=== PATIENT | female | born 1955 | race Caucasian/White ===

== ENCOUNTER 2016-06-23 11:35 | Inpatient (IN) | payer BC ==
[2016-06-23] MEDS ORDERED: NORMAL SALINE 1000 ML 1,000 ML IV ONE (12:30)
--- NOTE | 2016-06-23 12:35 | ER Document Report ---
ED Fever - General Chief Complaint: Fever Stated Complaint: FEVER Time seen by provider: 12:31 Notes: This is a 60-year-old female a history of chronic kidney disease stage II diabetes mellitus type II hypertension that presents today with a three-day history of fever. She states that last night she took an oral temperature of 104 and this morning an oral temperature of 103. She has taken Tylenol, which brought her fever to 101.9. She admits to some nausea and diarrhea but denies any vomiting. She also is complaining of right upper quadrant and left upper quadrant abdominal pain with no radiation. Denies any hematochezia. TRAVEL OUTSIDE OF THE [place] IN LAST 30 DAYS: No - Related Data Allergies/Adverse Reactions: No Known Allergies Allergy (Verified 12/06/14 14:25) Past Medical History - General Information source: Patient - Social History Smoking Status: Unknown if Ever Smoked Family History: Reviewed & Not Pertinent - Past Medical History Cardiac Medical History: Reports: Hx Hypertension Denies: Hx Heart Attack Pulmonary Medical History: Denies: Hx Asthma Neurological Medical History: Denies: Hx Cerebrovascular Accident, Hx Seizures Endocrine Medical History: Reports: Hx Diabetes Mellitus Type 2 GI Medical History: Denies: Hx Hepatitis, Hx Hiatal Hernia, Hx Ulcer Psychiatric Medical History: Reports: Hx Depression Infectious Medical History: Denies: Hx Hepatitis Past Surgical History: Denies: Hx Hysterectomy, Hx Mastectomy, Hx Open Heart Surgery, Hx Pacemaker Review of Systems - Review of Systems Constitutional: Fever Cardiovascular: denies: Chest pain Respiratory: denies: Cough, Short of breath Gastrointestinal: Abdominal pain Genitourinary: See HPI, Dysuria Physical Exam - Vital signs Vitals: Temp Pulse Resp BP Pulse Ox 101.9 F H 109 H 22 H 150/82 H 94 06/23/16 11:39 06/23/16 11:39 06/23/16 11:39 06/23/16 11:39 06/23/16 11:39 - General General appearance: Alert - HEENT Head: Normocephalic - Respiratory Respiratory status: No respiratory distress. No: Retractions, Tachypnea - Cardiovascular Rhythm: Regular Heart sounds: Normal auscultation, S1 appreciated, S2 appreciated - Abdominal Inspection: Normal Bowel sounds: Normal Tenderness: Tender - tender bilaterally to upper abdomen - Back Back: Tender - Right CVA tenderness - Extremities General upper extremity: Normal inspection General lower extremity: Normal inspection - Psychological Associated symptoms: Normal affect - Skin Skin Temperature: Warm Skin Moisture: Dry Skin Color: Normal Course - Re-evaluation Re-evalutation: 06/23/16 15:42 Patient responded well to pain medication. Lab results and CT imaging was shared with the patient. She was given multiple opportunities to ask questions. Dr. Smith was consulted. I started her on IV Levoquin pending blood cultures drawn. I started IV fluids. The hospitalist advised me to put the patient in for full admission on Tele. Patient was told of my plan and agreed. - Vital Signs Vital signs: Temp Pulse Resp BP Pulse Ox 99.1 F 91 22 H 138/59 H 94 06/23/16 17:13 06/23/16 17:13 06/23/16 19:45 06/23/16 19:45 06/23/16 19:45 - Laboratory Result Diagrams: 06/23/16 12:55 06/23/16 12:55 Laboratory results interpreted by me: 06/23/16 06/23/16 06/23/16 12:55 12:55 12:55 WBC 20.4 H Seg Neuts % (Manual) 79 H Band Neutrophils % 6 H Lymphocytes % (Manual) 9 L Abs Neuts (Manual) 17.3 H Creatinine 1.36 H Est GFR ( Amer) 48 L Est GFR (Non-Af Amer) 39 L Glucose 132 H Urine Protein 100 H Urine Blood SMALL H Ur Leukocyte Esterase LARGE H Discharge - Discharge Clinical Impression: Abdominal pain Qualifiers: Abdominal location: epigastric Qualified Code(s): R10.13 - Epigastric pain Fever Qualifiers: Fever type: unspecified Qualified Code(s): R50.9 - Fever, unspecified Condition: Stable Disposition: ADMITTED INPATIENT Admitting Provider: Hospitalist Unit Admitted: Telemetry
[2016-06-23] MEDS ORDERED: HYDROCODONE/ACETAMINOPHEN 5-325 MG TABLET PO ONE ×2 (12:36→15:50)
[2016-06-23] MEDS ORDERED: ONDANSETRON HCL INJ/PF 4 MG/2 ML SDV IV ONE ×2 (12:36→14:59)
[2016-06-23 13:38] LABS: APPEARANCE,URINE TURBID; BILIRUBIN,URINE NEGATIVE (NEGATIVE); GLUCOSE, URINE NEGATIVE (NEGATIVE); KETONES,URINE NEGATIVE (NEGATIVE); LEUKOCYTE ESTERASE,URINE LARGE (NEGATIVE); NITRITE,URINE NEGATIVE (NEGATIVE); PROTEIN,URINE 100 mg/dL (NEGATIVE); URINE SPECIFIC GRAVITY 1.015; UROBILINOGEN,URINE NEGATIVE mg/dL (<2.0)
[2016-06-23 13:45] LABS: ALANINE AMINOTRANSFERASE 25 U/L (9-52); ALBUMIN 4.3 g/dL (3.5-5.0); ALKALINE PHOSPHATASE 63 U/L (38-126); ANION GAP 14 (5-19); ASPARTATE AMINO TRANSFERASE 20 U/L (14-36); BILIRUBIN,TOTAL 0.7 mg/dL (0.2-1.3); BLOOD UREA NITROGEN 20 mg/dL (7-20); CALCIUM 9.9 mg/dL (8.4-10.2); CARBON DIOXIDE 26 mmol/L (22-30); CHLORIDE 102 mmol/L (98-107); CREATININE RESULT 1.36 mg/dL (0.52-1.25); GLUCOSE 132 mg/dL (75-110); LIPASE 66.1 U/L (23-300); POTASSIUM 3.7 mmol/L (3.6-5.0); SODIUM 141.7 mmol/L (137-145)
[2016-06-23 13:46] LABS: HEMATOCRIT 42.6 % (36.0-47.0); HEMOGLOBIN 14.1 g/dL (12.0-15.5); HGB HCT DIFFERENCE -0.3; MEAN CORPUSCULAR HEMOGLOBIN 28.3 pg (27.0-33.4); MEAN CORPUSCULAR VOLUME 86 fl (80-97); RED BLOOD COUNT 4.97 10^6/uL (3.72-5.28); RED CELL DISTRIBUTION WIDTH 13.7 % (11.5-14.0); WHITE BLOOD COUNT 20.4 10^3/uL (4.0-10.5)
[2016-06-23 13:53] LABS: BAND NEUTROPHILS % (MANUAL) 6 % (3-5); BASOPHILS % (MANUAL) 0 % (0-2); EOSINOPHILS % (MANUAL) 1 % (0-6); LYMPHOCYTES % (MANUAL) 9 % (13-45); TOTAL CELLS COUNTED 100
[2016-06-23 13:54] LABS: RBC MORPHOLOGY COMMENT NORMO-CYTIC/CHROMIC
[2016-06-23] MEDS ORDERED: LEVOFLOXACIN 750 MG/D5W RTU 150 ML IV ONE (18:32)
[2016-06-23] MEDS ORDERED: ONDANSETRON HCL INJ/PF 4 MG/2 ML SDV IV PRN (18:46)
[2016-06-23] MEDS ORDERED: ZOLPIDEM TARTRATE 5 MG TABLET PO PRN (18:46)
[2016-06-23] MEDS ORDERED: ACETAMINOPHEN 325 MG TABLET PO PRN (18:46)
[2016-06-23] MEDS ORDERED: MORPHINE SULFATE 10 MG/ML INJ IV PRN (18:54)
--- NOTE | 2016-06-23 19:13 | PDOC H&P ---
History of Present Illness Admission Date/PCP: 06/23/16 18:37 Patient complains of: Fever, right flank pain and diarrhea History of Present Illness: BONNY ASKEW is a 60 year old female who presents to [facility] 's ED with complaints of fever for 3 days, diarrhea for 2 days, right flank and upper bilateral quadrant abdominal pain. She states she was nauseated today but did not vomit. She denies any blood in her diarrhea. She has no urinary symptoms however urinalysis shows likely urinary tract infection with right flank pain. CT of the abdomen and pelvis showed some mild mesenteric haziness but no bowel wall inflammation or hydroneprhosis. The patient has been taking imodium over the counter with some improvement of her diarrhea. She is presently pain free. She is no longer nauseated after Zofran. She denies any other symptoms at the present time. She has taken Tylenol for her fevers which did help. She does have a history of hypertension, diabetes mellitus type II and dyslipidemia. Past Medical History Cardiac Medical History: Reports: Hyperlipidema, Hypertension Denies: Myocardial Infarction Pulmonary Medical History: Reports: None Denies: Asthma EENT Medical History: Reports: None Neurological Medical History: Reports: None Denies: Seizures Endocrine Medical History: Reports: Diabetes Mellitus Type 2 Renal/ Medical History: Reports: Chronic Kidney Disease Malignancy Medical History: Reports: None GI Medical History: Reports: Gastroesophageal Reflux Disease Denies: Hepatitis, Hiatal Hernia Musculoskeltal Medical History: Reports: None Skin Medical History: Reports: None Psychiatric Medical History: Reports: Depression Traumatic Medical History: Reports: None Hematology: Reports: None Denies: Anemia, Sickle Cell Disease Infectious Medical History: Reports: None Past Surgical History Past Surgical History: Denies: Amputation, Hysterectomy, Mastectomy, Pacemaker Social History Information Source: Patient Lives with: Alone Smoking Status: Never Smoker Frequency of Alcohol Use: None Hx Recreational Drug Use: No Hx Prescription Drug Abuse: No - Advance Directive Resuscitation Status: Full Code Surrogate healthcare decision maker:: She does not have MPOA, but states it would be her son Family History Family History: CAD, Hypertension Parental Family History Reviewed: Yes Children Family History Reviewed: Yes Sibling(s) Family History Reviewed.: Yes Medication/Allergy Home Medications: Citalopram Hydrobromide [Celexa 20 mg Tablet] 40 mg PO DAILY 02/04/12 Cholestyramine (with Sugar) [Cholestyramine Packet] 4 gm PO BID 02/09/16 Dulaglutide [Trulicity] 0.75 mg SQ Q7D 02/09/16 Lisinopril 20 mg PO DAILY 02/09/16 Pitavastatin Calcium [Livalo] 2 mg PO DAILY 02/09/16 Rosuvastatin Calcium 5 mg PO DAILY 02/09/16 Loperamide HCl [Imodium 2 mg Capsule] 4 mg PO DAILYP PRN #20 capsule 02/10/16 Loperamide HCl [Imodium 2 mg Capsule] 4 mg PO DAILYP PRN #20 capsule 02/10/16 Metoclopramide HCl [Reglan] 5 mg PO ACHS #40 tablet 02/10/16 Pantoprazole Sodium [Protonix] 40 mg PO QHS #30 tablet. 02/10/16 Allergies/Adverse Reactions: No Known Allergies Allergy (Verified 12/06/14 14:25) Review of Systems Constitutional: PRESENT: chills, fever(s) Eyes: ABSENT: visual disturbances Ears: ABSENT: hearing changes Cardiovascular: ABSENT: chest pain, dyspnea on exertion, edema, orthropnea, palpitations Respiratory: ABSENT: cough, hemoptysis Gastrointestinal: PRESENT: abdominal pain, bloating, diarrhea, nausea Genitourinary: ABSENT: dysuria, hematuria Musculoskeletal: PRESENT: back pain Integumentary: ABSENT: rash, wounds Neurological: ABSENT: abnormal gait, abnormal speech, confusion, dizziness, focal weakness, syncope Psychiatric: ABSENT: anxiety, depression, homidical ideation, suicidal ideation Endocrine: ABSENT: cold intolerance, heat intolerance, polydipsia, polyuria Hematologic/Lymphatic: ABSENT: easy bleeding, easy bruising Physical Exam Vital Signs: Temp Pulse Resp BP Pulse Ox 99.1 F 91 16 133/56 H 95 06/23/16 17:13 06/23/16 17:13 06/23/16 17:13 06/23/16 17:13 06/23/16 17:13 General appearance: PRESENT: no acute distress, obese, well-developed, well- nourished Head exam: PRESENT: atraumatic, normocephalic Eye exam: PRESENT: conjunctiva pink, EOMI, PERRLA. ABSENT: scleral icterus Ear exam: PRESENT: normal external ear exam Mouth exam: PRESENT: dry mucosa Neck exam: ABSENT: carotid bruit, JVD, lymphadenopathy, thyromegaly Respiratory exam: PRESENT: clear to auscultation joni. ABSENT: rales, rhonchi, wheezes Cardiovascular exam: PRESENT: RRR. ABSENT: diastolic murmur, rubs, systolic murmur Pulses: PRESENT: normal dorsalis pedis pul Vascular exam: PRESENT: normal capillary refill GI/Abdominal exam: PRESENT: normal bowel sounds, soft, tenderness - bilateral upper quadrants, other - right CVA tenderness Rectal exam: PRESENT: deferred Extremities exam: PRESENT: full ROM. ABSENT: calf tenderness, clubbing, pedal edema Musculoskeletal exam: PRESENT: ambulatory, full ROM, normal inspection Neurological exam: PRESENT: alert, awake, oriented to person, oriented to place , oriented to time, oriented to situation, CN II-XII grossly intact. ABSENT: motor sensory deficit Psychiatric exam: PRESENT: appropriate affect, normal mood. ABSENT: homicidal ideation, suicidal ideation Skin exam: PRESENT: dry, intact, warm. ABSENT: cyanosis, rash Results Impressions: Abdomen/Pelvis CT 06/23/16 14:55 IMPRESSION: 1. There appears to be some of the mild haziness within the mesenteries in the bilateral lower quadrants inferior to the kidney which could represent an area of inflammation within the fat/ mesentery. No focal lesions are seen in either region. This could also represent inflammation related to the bowel though there is no bowel wall thickening seen. No intra-abdominal free air is noted. Small amount of free fluid seen within the pelvis. No abscesses. 2. Small hiatus hernia. Assessment & Plan - Diagnosis (1) Acute pyelonephritis Is this a current diagnosis for this admission?: YesPlan: Blood cultures, urine culture pending. IV broad spectrum antibiotics (2) Abdominal pain Qualifiers: Abdominal location: epigastric Qualified Code(s): R10.13 - Epigastric pain Is this a current diagnosis for this admission?: YesPlan: Possible mesenteritis,versus viral syndrome (3) Fever Qualifiers: Fever type: unspecified Qualified Code(s): R50.9 - Fever, unspecified Is this a current diagnosis for this admission?: YesPlan: Cultures pending, Tylenol as needed (4) Acute renal failure (ARF) Qualifiers: Acute renal failure type: unspecified Qualified Code(s): N17.9 - Acute kidney failure, unspecified Is this a current diagnosis for this admission?: Yes (5) Dehydration Is this a current diagnosis for this admission?: YesPlan: Will rehydrate. (6) Depression Is this a current diagnosis for this admission?: YesPlan: Continue SSRI - Time Time Spent: 50 to 70 Minutes Critical Time spent with patient: 25-34 minutes Medications reviewed and adjusted accordingly: Yes Anticipated discharge: Home - Inpatient Certification Based on my medical assessment, after consideration of the patient's comorbidities, presenting symptoms, or acuity I expect that the services needed warrant INPATIENT care.: Yes I certify that my determination is in accordance with my understanding of Medicare's requirements for reasonable and necessary INPATIENT services [42 CFR 412.3e].: Yes Medical Necessity: Need For IV Fluids, Need for Pain Control, Need for IV Antibiotics
[2016-06-23] MEDS: NORMAL SALINE 1000 ML 1,000 ML IV PRN (21:42)
[2016-06-23] MEDS: METRONIDAZOLE 500 MG TABLET PO SCH (22:17)
[2016-06-23] MEDS: HEPARIN SOD (PORCINE) 5,000 UNIT/ML 1 ML SYRINGE SUBCUT SCH (22:18)
[2016-06-24] MEDS: NORMAL SALINE 1000 ML 1,000 ML IV PRN (04:17)
[2016-06-24] MEDS: HEPARIN SOD (PORCINE) 5,000 UNIT/ML 1 ML SYRINGE SUBCUT SCH ×3 (05:28→21:18)
[2016-06-24] MEDS: LANSOPRAZOLE 15 MG TAB.RAP.DR PO SCH ×2 (05:28→16:49)
[2016-06-24] MEDS: METRONIDAZOLE 500 MG TABLET PO SCH ×3 (05:28→21:18)
[2016-06-24 07:05] LABS: ABSOLUTE EOSINOPHILS # (AUTO) 0.4 10^3/uL (0.0-0.6); ABSOLUTE LYMPHOCYTES (AUTO) 1.7 10^3/uL (0.5-4.7); ABSOLUTE NEUT (AUTO) 8.3 10^3/uL (1.7-8.2); BASOPHILS % (AUTO) 0.2 % (0-2); EOSINOPHILS % (AUTO) 3.2 % (0-6); HEMATOCRIT 33.4 % (36.0-47.0); HGB HCT DIFFERENCE 0.5; LYMPHOCYTES % (AUTO) 14.6 % (13-45); MEAN CORPUSCULAR HEMOGLOBIN 28.7 pg (27.0-33.4); MEAN CORPUSCULAR HGB CONC 33.7 g/dL (32.0-36.0); MEAN CORPUSCULAR VOLUME 85 fl (80-97); MONOCYTES % (AUTO) 9.1 % (3-13); RED BLOOD COUNT 3.93 10^6/uL (3.72-5.28); RED CELL DISTRIBUTION WIDTH 13.6 % (11.5-14.0); SEGMENTED NEUTROPHILS % (AUTO) 72.9 % (42-78); WHITE BLOOD COUNT 11.3 10^3/uL (4.0-10.5)
[2016-06-24 07:18] LABS: AMYLASE 44 U/L (30-110); ANION GAP 12 (5-19); BLOOD UREA NITROGEN 25 mg/dL (7-20); CALCIUM 8.7 mg/dL (8.4-10.2); CARBON DIOXIDE 23 mmol/L (22-30); CHLORIDE 106 mmol/L (98-107); GLUCOSE 112 mg/dL (75-110); LIPASE 104.5 U/L (23-300); POTASSIUM 3.6 mmol/L (3.6-5.0); SODIUM 141.1 mmol/L (137-145)
[2016-06-24 07:21] LABS: HEMOGLOBIN 11.3 g/dL (12.0-15.5)
[2016-06-24] MEDS ORDERED: PROMETHAZINE HCL INJ 25 MG/1 ML VIAL IV PRN (08:15)
--- NOTE | 2016-06-24 08:32 | PDOC PROGRESS REPORT ---
Subjective Progress Note for:: 06/24/16 Subjective:: Patient is seen on morning rounds. She is presently resting in bed eating breakfast. She denies any diarrhea overnight. She had one episode of right flank pain that was relieved by morphine. She was nauseated earlier this morning , but is not now. No further fevers overnight. She denies any cough, chest pain , shortness of breath or dyspnea. She denies any back pain at the present time. Review of Systems: Rest are negative except mentioned in subjective Physical Exam Vital Signs: Temp Pulse Resp BP Pulse Ox 98.6 F 75 15 129/60 H 98 06/24/16 07:34 06/24/16 07:34 06/24/16 07:34 06/24/16 07:34 06/24/16 07:34 Intake & Output 06/23/16 06/24/16 06/25/16 06:59 06:59 06:59 Intake Total 1195 Balance 1195 Weight 114.4 kg General appearance: PRESENT: no acute distress, well-developed, well-nourished Head exam: PRESENT: atraumatic Eye exam: PRESENT: conjunctiva pink, EOMI, PERRLA. ABSENT: scleral icterus Ear exam: PRESENT: normal external ear exam Mouth exam: PRESENT: moist, tongue midline Neck exam: ABSENT: carotid bruit, JVD, lymphadenopathy, thyromegaly Cardiovascular exam: PRESENT: RRR. ABSENT: diastolic murmur, rubs, systolic murmur Pulses: PRESENT: normal dorsalis pedis pul Vascular exam: PRESENT: normal capillary refill GI/Abdominal exam: PRESENT: normal bowel sounds, soft. ABSENT: distended, guarding, mass, organolmegaly, rebound, tenderness Rectal exam: PRESENT: deferred Extremities exam: PRESENT: full ROM. ABSENT: calf tenderness, clubbing, pedal edema Neurological exam: PRESENT: alert, awake, oriented to person, oriented to place , oriented to time, oriented to situation, CN II-XII grossly intact. ABSENT: motor sensory deficit Psychiatric exam: PRESENT: appropriate affect, normal mood. ABSENT: homicidal ideation, suicidal ideation Results Laboratory Results: 06/24/16 06:15 06/24/16 06:15 06/24/16 06/24/16 06:15 06:15 WBC 11.3 H RBC 3.93 Hgb 11.3 L D Hct 33.4 L MCV 85 MCH 28.7 MCHC 33.7 RDW 13.6 Plt Count 175 Seg Neutrophils % 72.9 Lymphocytes % 14.6 Monocytes % 9.1 Eosinophils % 3.2 Basophils % 0.2 Absolute Neutrophils 8.3 H Absolute Lymphocytes 1.7 Absolute Monocytes 1.0 Absolute Eosinophils 0.4 Absolute Basophils 0.0 Sodium 141.1 Potassium 3.6 Chloride 106 Carbon Dioxide 23 Anion Gap 12 BUN 25 H Creatinine 1.70 H Est GFR ( Amer) 37 L Est GFR (Non-Af Amer) 30 L Glucose 112 H Calcium 8.7 Amylase 44 Lipase 104.5 Impressions: Abdomen/Pelvis CT 06/23/16 14:55 IMPRESSION: 1. There appears to be some of the mild haziness within the mesenteries in the bilateral lower quadrants inferior to the kidney which could represent an area of inflammation within the fat/ mesentery. No focal lesions are seen in either region. This could also represent inflammation related to the bowel though there is no bowel wall thickening seen. No intra-abdominal free air is noted. Small amount of free fluid seen within the pelvis. No abscesses. 2. Small hiatus hernia. Assessment & Plan - Diagnosis (1) Acute pyelonephritis Is this a current diagnosis for this admission?: YesPlan: Blood cultures, urine culture pending. IV broad spectrum antibiotics (2) Abdominal pain Qualifiers: Abdominal location: epigastric Qualified Code(s): R10.13 - Epigastric pain Is this a current diagnosis for this admission?: YesPlan: Possible mesenteritis,versus viral syndrome (3) Fever Qualifiers: Fever type: unspecified Qualified Code(s): R50.9 - Fever, unspecified Is this a current diagnosis for this admission?: YesPlan: Cultures pending, Tylenol as needed (4) Acute renal failure (ARF) Qualifiers: Acute renal failure type: unspecified Qualified Code(s): N17.9 - Acute kidney failure, unspecified Is this a current diagnosis for this admission?: YesPlan: Continue to rehydrate with IV fluid, prerenal due to dehydration from uti and diarrhea (5) Dehydration Is this a current diagnosis for this admission?: YesPlan: Will rehydrate. (6) Depression Is this a current diagnosis for this admission?: YesPlan: Continue SSRI - Time Time Spent with patient: 25-34 minutes Critical Time spent with patient: 15-24 minutes Medications reviewed and adjusted accordingly: Yes Anticipated discharge: Home
[2016-06-24] MEDS: LISINOPRIL 10 MG TABLET PO SCH (09:12)
[2016-06-24] MEDS: LACTOBACILLUS ACIDOPHILUS 250 MG TAB PO SCH ×2 (09:12→17:09)
[2016-06-24] MEDS: CITALOPRAM HYDROBROMIDE 20 MG TABLET PO SCH (09:13)
[2016-06-24] MEDS ORDERED: LEVOFLOXACIN 750 MG/D5W RTU 750 MG/150 ML RTUPB IV SCH (18:00)
[2016-06-25] MEDS: HEPARIN SOD (PORCINE) 5,000 UNIT/ML 1 ML SYRINGE SUBCUT SCH ×2 (01:26→13:13)
[2016-06-25 04:55] LABS: ABSOLUTE BASOPHILS # (AUTO) 0.1 10^3/uL (0.0-0.2); ABSOLUTE EOSINOPHILS # (AUTO) 0.4 10^3/uL (0.0-0.6); ABSOLUTE MONOCYTES (AUTO) 0.8 10^3/uL (0.1-1.4); BASOPHILS % (AUTO) 0.6 % (0-2); EOSINOPHILS % (AUTO) 4.5 % (0-6); HEMATOCRIT 34.1 % (36.0-47.0); HEMOGLOBIN 11.6 g/dL (12.0-15.5); HGB HCT DIFFERENCE 0.7; LYMPHOCYTES % (AUTO) 21.3 % (13-45); MEAN CORPUSCULAR HEMOGLOBIN 28.8 pg (27.0-33.4); MEAN CORPUSCULAR HGB CONC 33.9 g/dL (32.0-36.0); MEAN CORPUSCULAR VOLUME 85 fl (80-97); MONOCYTES % (AUTO) 8.3 % (3-13); RED BLOOD COUNT 4.01 10^6/uL (3.72-5.28); RED CELL DISTRIBUTION WIDTH 13.6 % (11.5-14.0); SEGMENTED NEUTROPHILS % (AUTO) 65.3 % (42-78); WHITE BLOOD COUNT 9.2 10^3/uL (4.0-10.5)
[2016-06-25 05:15] LABS: ANION GAP 11 (5-19); BLOOD UREA NITROGEN 31 mg/dL (7-20); CALCIUM 8.7 mg/dL (8.4-10.2); CARBON DIOXIDE 24 mmol/L (22-30); CHLORIDE 107 mmol/L (98-107); CREATININE RESULT 1.82 mg/dL (0.52-1.25); GLUCOSE 102 mg/dL (75-110); POTASSIUM 3.7 mmol/L (3.6-5.0); SODIUM 142.4 mmol/L (137-145)
[2016-06-25] MEDS: LANSOPRAZOLE 15 MG TAB.RAP.DR PO SCH (06:22)
[2016-06-25] MEDS: METRONIDAZOLE 500 MG TABLET PO SCH ×2 (06:22→13:14)
[2016-06-25] MEDS: LISINOPRIL 10 MG TABLET PO SCH (09:29)
[2016-06-25] MEDS: CITALOPRAM HYDROBROMIDE 20 MG TABLET PO SCH (09:31)
[2016-06-25] MEDS: LACTOBACILLUS ACIDOPHILUS 250 MG TAB PO SCH (09:32)
--- NOTE | 2016-06-25 13:44 | PDOC DISCHARGE SUMMARY ---
General - Admit/Disc Date/PCP Admission Date/Primary Care Provider: 06/23/16 18:47 Discharge Date: 06/25/16 - Discharge Diagnosis (1) Acute pyelonephritis Is this a current diagnosis for this admission?: YesSummary: Patient is on oral antibiotics. Fever and pain has resolved (2) Abdominal pain Is this a current diagnosis for this admission?: YesSummary: Pain has resolved. (3) Fever Is this a current diagnosis for this admission?: YesSummary: Resolved after initiating antibiotic therapy (4) Acute renal failure (ARF) Is this a current diagnosis for this admission?: YesSummary: Patient has CKD II back to baseline (5) Dehydration Is this a current diagnosis for this admission?: YesSummary: Resolved with IV hydration (6) Depression Is this a current diagnosis for this admission?: YesSummary: Continue SSRI - Additional Information Resuscitation Status: Full Code Discharge Diet: Diabetic Discharge Activity: Activity As Tolerated, Balance Activity w/Rest Home Medications: Citalopram Hydrobromide [Celexa 20 mg Tablet] 40 mg PO DAILY 02/04/12 Cholestyramine (with Sugar) [Cholestyramine Packet] 4 gm PO BID 02/09/16 Dulaglutide [Trulicity] 0.75 mg SQ Q7D 02/09/16 Lisinopril 20 mg PO DAILY 02/09/16 Rosuvastatin Calcium 10 mg PO DAILY 02/09/16 Metoclopramide HCl [Reglan] 5 mg PO ACHS #40 tablet 02/10/16 Acetaminophen [Tylenol 325 mg Tablet] 650 mg PO Q4HP PRN tablet 06/25/16 Citalopram Hydrobromide [Celexa 20 mg Tablet] 40 mg PO DAILY tablet 06/25/16 Levofloxacin [Levaquin] 750 mg PO DAILY #7 tablet 06/25/16 Metronidazole [Flagyl 500 mg Tablet] 500 mg PO Q8 #21 tablet 06/25/16 History of Present Illness History of Present Illness: BONNY ASKEW is a 60 year old female who presents to [facility] 's ED with complaints of fever for 3 days, diarrhea for 2 days, right flank and upper bilateral quadrant abdominal pain. She states she was nauseated today but did not vomit. She denies any blood in her diarrhea. She has no urinary symptoms however urinalysis shows likely urinary tract infection with right flank pain. CT of the abdomen and pelvis showed some mild mesenteric haziness but no bowel wall inflammation or hydroneprhosis. The patient has been taking imodium over the counter with some improvement of her diarrhea. She is presently pain free. She is no longer nauseated after Zofran. She denies any other symptoms at the present time. She has taken Tylenol for her fevers which did help. She does have a history of hypertension, diabetes mellitus type II and dyslipidemia. Hospital Course Hospital Course: Patient was admitted to telemetry unit. She was rehydrated with IV fluids and given IV antibiotics. Her fever resolved. The following day abdominal pain and flank pain resolved. Her leucocytosis was trending downward. She was started on clear liquids and progressed to a regular diabetic diet. She had no further diarrhea. Today leucocytosis has resolved. She has no abdominal or flank pain. She feels ready for discharge today. Physical Exam Vital Signs: Temp Pulse Resp BP Pulse Ox 98.7 F 73 15 132/64 H 98 06/25/16 11:13 06/25/16 11:13 06/25/16 11:13 06/25/16 11:13 06/25/16 11:13 Intake & Output 06/24/16 06/25/16 06/26/16 06:59 06:59 06:59 Intake Total 1195 3196 Output Total 1150 Balance 1195 2046 Weight 114.4 kg 114.6 kg General appearance: PRESENT: no acute distress, morbidly obese, well-developed, well-nourished Head exam: PRESENT: atraumatic, normocephalic Eye exam: PRESENT: conjunctiva pink, EOMI, PERRLA. ABSENT: scleral icterus Ear exam: PRESENT: normal external ear exam Mouth exam: PRESENT: moist, tongue midline Neck exam: ABSENT: carotid bruit, JVD, lymphadenopathy, thyromegaly Respiratory exam: PRESENT: clear to auscultation joni. ABSENT: rales, rhonchi, wheezes Cardiovascular exam: PRESENT: RRR. ABSENT: diastolic murmur, rubs, systolic murmur Pulses: PRESENT: normal dorsalis pedis pul Vascular exam: PRESENT: normal capillary refill GI/Abdominal exam: PRESENT: normal bowel sounds, soft. ABSENT: distended, guarding, mass, organolmegaly, rebound, tenderness Rectal exam: PRESENT: deferred Extremities exam: PRESENT: full ROM. ABSENT: calf tenderness, clubbing, pedal edema Neurological exam: PRESENT: alert, awake, oriented to person, oriented to place , oriented to time, oriented to situation, CN II-XII grossly intact. ABSENT: motor sensory deficit Psychiatric exam: PRESENT: appropriate affect, normal mood. ABSENT: homicidal ideation, suicidal ideation Skin exam: PRESENT: dry, intact, warm. ABSENT: cyanosis, rash Results Laboratory Results: 06/25/16 04:18 06/25/16 04:18 06/25/16 06/25/16 04:18 04:18 WBC 9.2 RBC 4.01 Hgb 11.6 L Hct 34.1 L MCV 85 MCH 28.8 MCHC 33.9 RDW 13.6 Plt Count 193 Seg Neutrophils % 65.3 Lymphocytes % 21.3 Monocytes % 8.3 Eosinophils % 4.5 Basophils % 0.6 Absolute Neutrophils 6.0 Absolute Lymphocytes 2.0 Absolute Monocytes 0.8 Absolute Eosinophils 0.4 Absolute Basophils 0.1 Sodium 142.4 Potassium 3.7 Chloride 107 Carbon Dioxide 24 Anion Gap 11 BUN 31 H Creatinine 1.82 H Est GFR ( Amer) 34 L Est GFR (Non-Af Amer) 28 L Glucose 102 Calcium 8.7 Impressions: Abdomen/Pelvis CT 06/23/16 14:55 IMPRESSION: 1. There appears to be some of the mild haziness within the mesenteries in the bilateral lower quadrants inferior to the kidney which could represent an area of inflammation within the fat/ mesentery. No focal lesions are seen in either region. This could also represent inflammation related to the bowel though there is no bowel wall thickening seen. No intra-abdominal free air is noted. Small amount of free fluid seen within the pelvis. No abscesses. 2. Small hiatus hernia. Qualifiers PATEINT BEING DISCHARGED WITH ANY OF THE FOLLOWING DIAGNOSIS?: No Plan Discharge Plan: Discharge home with family continue on oral antibiotics. Follow up with primary are provider in one week Time Spent: Less than 30 Minutes
[2016-06-25 17:31] VITALS: BP 111/47
== END 2016-06-25 18:00 | disposition home or self-care (01) | DRG 690 ==
LOC: ER 11:35 → UNDOADMIN 18:37 → EH 18:37 → 5 21:04
PROVIDERS: ADMIT Family Medicine; ATTEND Family Medicine
DX: N10 Acute pyelonephritis (principal); Z68.41 Body mass index [BMI] 40.0-44.9, adult; N17.9 Acute kidney failure, unspecified; E86.0 Dehydration; I12.9 Hypertensive chronic kidney disease with stage 1 through stage 4 chronic kidney disease, or unspecified chronic kidney disease; E11.22 Type 2 diabetes mellitus with diabetic chronic kidney disease; N18.9 Chronic kidney disease, unspecified; F32.9 Major depressive disorder, single episode, unspecified; E66.9 Obesity, unspecified; E78.5 Hyperlipidemia, unspecified; Z79.899 Other long term (current) drug therapy; K21.9 Gastro-esophageal reflux disease without esophagitis; Z82.49 Family history of ischemic heart disease and other diseases of the circulatory system
CPT/HCPCS: 36415; 74176; 80048; 80053; 81001; 82150; 82962; 83036; 83690; 85025; 87040; 87045; 87086; 87205; 87493; 96361; 96374; 96376; 99284; J1956; J2270; J2405; J2550; J7030

== ENCOUNTER 2016-11-17 10:35 | Emergency (ER) | payer BC ==
--- NOTE | 2016-11-17 11:05 | ER Document Report ---
ED Medical Screen (RME) - General Chief Complaint: Diarrhea Stated Complaint: DIARRHEA/FATIGUE/WEAKNESS Time Seen by Provider: 11/17/16 11:00 Mode of Arrival: Ambulatory Information source: Patient Notes: This 60-year-old female patient comes emergency room complaining of the 2 week history of watery diarrhea and one-week history of weakness and fatigue which is getting worse. She has had nausea without vomiting. There is no fever. There is no recent antibiotic use. She was admitted here a few months ago with pyelonephritis. I have greeted and performed a rapid initial assessment of this patient. A comprehensive ED assessment and evaluation of the patient, analysis of test results and completion of the medical decision making process will be conducted by additional ED providers. TRAVEL OUTSIDE OF THE [place] IN LAST 30 DAYS: No - Related Data Allergies/Adverse Reactions: No Known Allergies Allergy (Verified 11/17/16 10:45) Past Medical History - Past Medical History Cardiac Medical History: Reports: Hx Hypercholesterolemia, Hx Hypertension Denies: Hx Heart Attack Pulmonary Medical History: Denies: Hx Asthma Neurological Medical History: Denies: Hx Cerebrovascular Accident, Hx Seizures Endocrine Medical History: Reports: Hx Diabetes Mellitus Type 2 Renal/ Medical History: Denies: Hx Peritoneal Dialysis GI Medical History: Reports: Hx Gastroesophageal Reflux Disease. Denies: Hx Hepatitis, Hx Hiatal Hernia, Hx Ulcer Psychiatric Medical History: Reports: Hx Depression Infectious Medical History: Denies: Hx Hepatitis Past Surgical History: Denies: Hx Hysterectomy, Hx Mastectomy, Hx Open Heart Surgery, Hx Pacemaker - Immunizations Hx Diphtheria, Pertussis, Tetanus Vaccination: Yes Physical Exam - Vital signs Vitals: Temp Pulse Resp BP Pulse Ox 98.2 F 81 16 117/62 98 11/17/16 10:37 11/17/16 10:37 11/17/16 10:37 11/17/16 10:37 11/17/16 10:37 Course - Vital Signs Vital signs: Temp Pulse Resp BP Pulse Ox 98.2 F 81 16 117/62 98 11/17/16 10:37 11/17/16 10:37 11/17/16 10:37 11/17/16 10:37 11/17/16 10:37
[2016-11-17 11:28] LABS: ABSOLUTE BASOPHILS # (AUTO) 0.1 10^3/uL (0.0-0.2); ABSOLUTE EOSINOPHILS # (AUTO) 0.3 10^3/uL (0.0-0.6); ABSOLUTE LYMPHOCYTES (AUTO) 1.9 10^3/uL (0.5-4.7); ABSOLUTE MONOCYTES (AUTO) 0.7 10^3/uL (0.1-1.4); ABSOLUTE NEUT (AUTO) 2.4 10^3/uL (1.7-8.2); BASOPHILS % (AUTO) 1.4 % (0-2); EOSINOPHILS % (AUTO) 5.2 % (0-6); HEMATOCRIT 40.6 % (36.0-47.0); HEMOGLOBIN 13.5 g/dL (12.0-15.5); HGB HCT DIFFERENCE -0.1; LYMPHOCYTES % (AUTO) 35.1 % (13-45); MEAN CORPUSCULAR HEMOGLOBIN 28.9 pg (27.0-33.4); MEAN CORPUSCULAR HGB CONC 33.2 g/dL (32.0-36.0); MEAN CORPUSCULAR VOLUME 87 fl (80-97); RED BLOOD COUNT 4.66 10^6/uL (3.72-5.28); SEGMENTED NEUTROPHILS % (AUTO) 45.3 % (42-78); WHITE BLOOD COUNT 5.3 10^3/uL (4.0-10.5)
[2016-11-17] MEDS ORDERED: NORMAL SALINE 1000 ML 1,000 ML IV ONE (11:32)
[2016-11-17 11:42] LABS: ALANINE AMINOTRANSFERASE 31 U/L (9-52); ALBUMIN 4.2 g/dL (3.5-5.0); ALKALINE PHOSPHATASE 115 U/L (38-126); ANION GAP 14 (5-19); ASPARTATE AMINO TRANSFERASE 20 U/L (14-36); BILIRUBIN,DIRECT 0.2 mg/dL (0.0-0.4); BILIRUBIN,TOTAL 0.4 mg/dL (0.2-1.3); BLOOD UREA NITROGEN 36 mg/dL (7-20); CARBON DIOXIDE 24 mmol/L (22-30); CHLORIDE 101 mmol/L (98-107); CREATININE RESULT 1.19 mg/dL (0.52-1.25); GLUCOSE 104 mg/dL (75-110); SODIUM 139.2 mmol/L (137-145); TOTAL PROTEIN 7.8 g/dL (6.3-8.2)
[2016-11-17] MEDS ORDERED: DICYCLOMINE HCL 20 MG TABLET PO ONE (11:42)
[2016-11-17] MEDS ORDERED: ONDANSETRON 4 MG TAB.RAPDIS PO ONE (11:42)
[2016-11-17 12:12] LABS: APPEARANCE,URINE CLEAR; BILIRUBIN,URINE NEGATIVE (NEGATIVE); GLUCOSE, URINE NEGATIVE (NEGATIVE); KETONES,URINE NEGATIVE (NEGATIVE); LEUKOCYTE ESTERASE,URINE NEGATIVE (NEGATIVE); NITRITE,URINE NEGATIVE (NEGATIVE); PROTEIN,URINE NEGATIVE (NEGATIVE); URINE SPECIFIC GRAVITY 1.013; UROBILINOGEN,URINE NEGATIVE mg/dL (<2.0)
--- NOTE | 2016-11-17 15:11 | ER Document Report ---
ED General - General Chief Complaint: Diarrhea Stated Complaint: DIARRHEA/FATIGUE/WEAKNESS Time Seen by Provider: 11/17/16 11:00 Mode of Arrival: Ambulatory TRAVEL OUTSIDE OF THE [place] IN LAST 30 DAYS: No - HPI Patient complains to provider of: Nausea diarrhea Notes: Patient coming in for evaluation of diarrhea and nausea. Patient states diarrhea ongoing for greater than a week. Patient denies any recent travel denies any new pets at home. Patient denies any recent antibiotics. Patient states cramping abdominal pain no fevers no chills no night sweats - Related Data Allergies/Adverse Reactions: No Known Allergies Allergy (Verified 11/17/16 10:45) Past Medical History - General Information source: Patient - Social History Smoking Status: Never Smoker Chew tobacco use (# tins/day): No Frequency of alcohol use: None Drug Abuse: None Family History: Reviewed & Not Pertinent Patient has suicidal ideation: No Patient has homicidal ideation: No - Past Medical History Cardiac Medical History: Reports: Hx Hypercholesterolemia, Hx Hypertension Denies: Hx Heart Attack Pulmonary Medical History: Denies: Hx Asthma Neurological Medical History: Denies: Hx Cerebrovascular Accident, Hx Seizures Endocrine Medical History: Reports: Hx Diabetes Mellitus Type 2 Renal/ Medical History: Reports: Hx End Stage Renal Disease - CKD III. Denies : Hx Peritoneal Dialysis GI Medical History: Reports: Hx Gastroesophageal Reflux Disease. Denies: Hx Hepatitis, Hx Hiatal Hernia, Hx Ulcer Psychiatric Medical History: Reports: Hx Depression Infectious Medical History: Denies: Hx Hepatitis Past Surgical History: Denies: Hx Hysterectomy, Hx Mastectomy, Hx Open Heart Surgery, Hx Pacemaker - Immunizations Hx Diphtheria, Pertussis, Tetanus Vaccination: Yes Review of Systems - Review of Systems Constitutional: No symptoms reported EENT: No symptoms reported Cardiovascular: No symptoms reported Respiratory: No symptoms reported Gastrointestinal: Diarrhea, Nausea Genitourinary: No symptoms reported Female Genitourinary: No symptoms reported Musculoskeletal: No symptoms reported Skin: No symptoms reported Hematologic/Lymphatic: No symptoms reported Neurological/Psychological: No symptoms reported -: Yes All other systems reviewed and negative Physical Exam - Vital signs Vitals: Temp Pulse Resp BP Pulse Ox 98.2 F 81 16 117/62 98 11/17/16 10:37 11/17/16 10:37 11/17/16 10:37 11/17/16 10:37 11/17/16 10:37 Interpretation: Normal - General General appearance: Appears well, Alert - HEENT Head: Normocephalic, Atraumatic Eyes: Normal Pupils: PERRL - Respiratory Respiratory status: No respiratory distress Chest status: Nontender Breath sounds: Normal Chest palpation: Normal - Cardiovascular Rhythm: Regular Heart sounds: Normal auscultation Murmur: No - Abdominal Inspection: Normal Distension: No distension Bowel sounds: Normal Tenderness: Nontender Organomegaly: No organomegaly - Back Back: Normal, Nontender - Extremities General upper extremity: Normal inspection, Nontender, Normal color, Normal ROM , Normal temperature General lower extremity: Normal inspection, Nontender, Normal color, Normal ROM , Normal temperature, Normal weight bearing. No: Bo's sign - Neurological Neuro grossly intact: Yes Cognition: Normal Orientation: AAOx4 [place] Coma Scale Eye Opening: Spontaneous [place] Coma Scale Verbal: Oriented [place] Coma Scale Motor: Obeys Commands [place] Coma Scale Total: 15 Speech: Normal Motor strength normal: LUE, RUE, LLE, RLE Sensory: Normal - Psychological Associated symptoms: Normal affect, Normal mood - Skin Skin Temperature: Warm Skin Moisture: Dry Skin Color: Normal Course - Re-evaluation Re-evalutation: 11/17/16 16:08 The patient presents with d/v without signs of peritonitis or other life- threatening or serious etiology. The patient appears stable for discharge and has been instructed to return immediately if the symptoms worsen in any way, or in 8-12hr if not improved for re-evaluation. The patient has been instructed to return if the symptoms worsen or change in any way.. - Vital Signs Vital signs: Temp Pulse Resp BP Pulse Ox 98.4 F 78 16 108/54 L 99 11/17/16 15:25 11/17/16 15:25 11/17/16 15:25 11/17/16 15:25 11/17/16 15:25 - Laboratory Result Diagrams: 11/17/16 11:14 11/17/16 11:14 Laboratory results interpreted by me: 11/17/16 11/17/16 11:14 11:24 BUN 36 H Est GFR ( Amer) 56 L Est GFR (Non-Af Amer) 46 L Urine Ascorbic Acid 40 H Discharge - Discharge Clinical Impression: Nausea Diarrhea Qualifiers: Diarrhea type: unspecified type Qualified Code(s): R19.7 - Diarrhea, unspecified Condition: Good Disposition: HOME, SELF-CARE Instructions: Diarrhea, Nonspecific ([facility]), Nausea or Vomiting, Nonspecific ([facility] ) Additional Instructions: We will continue her stool for culture and will take approximately 24-48 hours for these results to return. Your lab today shows no signs of significant infection. Please make sure that you are drinking plenty of water to stay hydrated. Take medication as prescribed. Return to the ER if symptoms worsen. Prescriptions: Ondansetron [Zofran Odt 4 mg Tablet] 4 mg PO Q4HP PRN #30 tab.rapdis PRN Reason: Dicyclomine HCl [Bentyl 20 mg Tablet] 20 mg PO QID #40 tablet Forms: Return to Work Referrals: ISABEL FLORES MD [Primary Care Provider] - Follow up in 3-5 days
[2016-11-17] MEDS ORDERED: ONDANSETRON ODT 4 MG TAB (6 TAB/DSPK) PO PRN (15:18)
[2016-11-17 15:33] VITALS: BP 108/54
== END 2016-11-17 15:31 | disposition home or self-care (01) ==
LOC: ER 10:35
DX: R19.7 Diarrhea, unspecified (principal); R11.0 Nausea; R53.83 Other fatigue; R53.1 Weakness
CPT/HCPCS: 99284; 36415; 87040; 87045; 87205; 83735; 85025; 80053; 81001; 87493 ×2; J3490; S0119

== ENCOUNTER 2017-01-09 14:40 | Inpatient (IN) | payer BC ==
[2017-01-09] MEDS ORDERED: NORMAL SALINE 1000 ML 1,000 ML IV ONE (14:55)
--- NOTE | 2017-01-09 14:59 | ER Document Report ---
ED Medical Screen (RME) - General Chief Complaint: Nausea/Vomiting/Diarrhea Stated Complaint: ABDOMINAL PAIN,DIARRHEA,VOMITING Time Seen by Provider: 01/09/17 14:55 Notes: Patient states she has had abdominal pain that is epigastric for several days. She has also had diarrhea. She has been lightheaded and dizzy. She denies any vaginal bleeding or discharge. No problems with urination. No cough cold or congestion. She does not believe she has had any fevers or rashes. Had a similar episode in the past with a workup but no one could tell her why she had diarrhea. Denies Recent antibiotics. TRAVEL OUTSIDE OF THE [place] IN LAST 30 DAYS: No - Related Data Allergies/Adverse Reactions: No Known Allergies Allergy (Verified 01/09/17 14:43) Past Medical History - Past Medical History Cardiac Medical History: Reports: Hx Hypercholesterolemia, Hx Hypertension Denies: Hx Heart Attack Pulmonary Medical History: Denies: Hx Asthma Neurological Medical History: Denies: Hx Cerebrovascular Accident, Hx Seizures Endocrine Medical History: Reports: Hx Diabetes Mellitus Type 2 Renal/ Medical History: Reports: Hx End Stage Renal Disease - CKD III. Denies : Hx Peritoneal Dialysis GI Medical History: Reports: Hx Gastroesophageal Reflux Disease. Denies: Hx Hepatitis, Hx Hiatal Hernia, Hx Ulcer Psychiatric Medical History: Reports: Hx Depression Infectious Medical History: Denies: Hx Hepatitis Past Surgical History: Denies: Hx Hysterectomy, Hx Mastectomy, Hx Open Heart Surgery, Hx Pacemaker - Immunizations Hx Diphtheria, Pertussis, Tetanus Vaccination: Yes Physical Exam - Vital signs Vitals: Temp Pulse Resp BP Pulse Ox 98.5 F 76 16 96/51 L 100 01/09/17 14:46 01/09/17 14:46 01/09/17 14:46 01/09/17 14:46 01/09/17 14:46 Course - Vital Signs Vital signs: Temp Pulse Resp BP Pulse Ox 98.5 F 76 16 96/51 L 100 01/09/17 14:46 01/09/17 14:46 01/09/17 14:46 01/09/17 14:46 01/09/17 14:46
[2017-01-09 15:13] LABS: ABSOLUTE EOSINOPHILS # (AUTO) 0.2 10^3/uL (0.0-0.6); ABSOLUTE MONOCYTES (AUTO) 0.8 10^3/uL (0.1-1.4); ABSOLUTE NEUT (AUTO) 2.6 10^3/uL (1.7-8.2); BASOPHILS % (AUTO) 0.7 % (0-2); EOSINOPHILS % (AUTO) 3.8 % (0-6); HEMATOCRIT 41.8 % (36.0-47.0); HEMOGLOBIN 13.8 g/dL (12.0-15.5); HGB HCT DIFFERENCE -0.4; MEAN CORPUSCULAR HEMOGLOBIN 28.3 pg (27.0-33.4); MEAN CORPUSCULAR HGB CONC 32.9 g/dL (32.0-36.0); MEAN CORPUSCULAR VOLUME 86 fl (80-97); MONOCYTES % (AUTO) 14.3 % (3-13); RED BLOOD COUNT 4.86 10^6/uL (3.72-5.28); SEGMENTED NEUTROPHILS % (AUTO) 46.2 % (42-78); VENOUS BLOOD BASE EXCESS -1.5 mmol/L; VENOUS BLOOD HCO3 25.5 mmol/L (20-32); VENOUS BLOOD PCO2 51.9 mmHg (35-63); VENOUS BLOOD PH 7.31 (7.30-7.42); WHITE BLOOD COUNT 5.6 10^3/uL (4.0-10.5)
[2017-01-09 15:29] LABS: ALANINE AMINOTRANSFERASE 32 U/L (9-52); ALBUMIN 4.7 g/dL (3.5-5.0); ALKALINE PHOSPHATASE 98 U/L (38-126); ANION GAP 17 (5-19); ASPARTATE AMINO TRANSFERASE 20 U/L (14-36); BILIRUBIN,DIRECT 0.3 mg/dL (0.0-0.4); BILIRUBIN,TOTAL 0.7 mg/dL (0.2-1.3); BLOOD UREA NITROGEN 43 mg/dL (7-20); CARBON DIOXIDE 24 mmol/L (22-30); CHLORIDE 100 mmol/L (98-107); CREATININE RESULT 2.14 mg/dL (0.52-1.25); GLUCOSE 107 mg/dL (75-110); POTASSIUM 3.5 mmol/L (3.6-5.0); SODIUM 140.6 mmol/L (137-145); TOTAL PROTEIN 8.5 g/dL (6.3-8.2)
--- NOTE | 2017-01-09 15:57 | ER Document Report ---
ED GI/ - General Chief Complaint: Nausea/Vomiting/Diarrhea Stated Complaint: ABDOMINAL PAIN,DIARRHEA,VOMITING Time Seen by Provider: 01/09/17 14:55 Notes: Patient is here complaining of vomiting, diarrhea, and abdominal pains. She says that she began having watery diarrhea about 2 weeks ago. She has been having these stools about 6 times a day. For the past 5 days, she has been vomiting about 3 times a day. She is developed some abdominal pain that has concentrated now in the epigastric region. Pain goes around her abdomen into her back, below her shoulder blades since yesterday. This morning, patient was feeling very weak and fatigued and dizzy and went to see her doctor who got a blood pressure of 80/40 and sent her to the emergency department. Patient says that she has had this problem several times previously. She is even had to be admitted to the hospital for the same. However, no definite diagnosis has been established. Has never had any abdominal surgeries. Never been told she has diverticulitis or colitis or any other gastrointestinal diseases. Denies any fever or chills or sweats. No UTI symptoms. But has had U TIAs, even requiring hospitalization. TRAVEL OUTSIDE OF THE [place] IN LAST 30 DAYS: No - Related Data Allergies/Adverse Reactions: No Known Allergies Allergy (Verified 01/09/17 14:43) Home Medications: Current Home Medications Atorvastatin Calcium 10 mg PO DAILY 01/09/17 [History] Citalopram Hydrobromide [Celexa] 1 tab PO DAILY 01/09/17 [History] Sulindac 150 mg PO DAILY 01/09/17 [History] Past Medical History - Social History Smoking Status: Unknown if Ever Smoked Cigarette use (# per day): No Chew tobacco use (# tins/day): No Frequency of alcohol use: None Drug Abuse: None Family History: Reviewed & Not Pertinent Patient has suicidal ideation: No Patient has homicidal ideation: No - Past Medical History Cardiac Medical History: Reports: Hx Hypercholesterolemia, Hx Hypertension Endocrine Medical History: Reports: Hx Diabetes Mellitus Type 2 - On Trulicity injection once a week. Says that she has lost 80 pounds. Renal/ Medical History: Reports: Hx End Stage Renal Disease - CKD III GI Medical History: Reports: Hx Gastroesophageal Reflux Disease. Denies: Hx Diverticulitis Psychiatric Medical History: Reports: Hx Depression - Immunizations Hx Diphtheria, Pertussis, Tetanus Vaccination: Yes Review of Systems - Review of Systems Notes: REVIEW OF SYSTEMS: CONSTITUTIONAL : Denies fever. EENT: Denies eye, ear, nose or mouth or throat pain or other symptoms. CARDIOVASCULAR: Denies chest pain. RESPIRATORY: Denies cough, chest congestion, or shortness of breath. GASTROINTESTINAL: See HPI. GENITOURINARY: Denies difficulty or painful urinating, urinary frequency, blood in urine. History of UTIs. MUSCULOSKELETAL: Denies back or neck pain. Denies joint pain or swelling. SKIN: Denies rash or skin lesions. NEUROLOGICAL: Denies LOC or altered mental status. Denies headache. Denies sensory loss or motor deficits. ALL OTHER SYSTEMS REVIEWED AND NEGATIVE. Physical Exam - Vital signs Vitals: Temp Pulse Resp BP Pulse Ox 98.5 F 76 16 96/51 L 100 01/09/17 14:46 01/09/17 14:46 01/09/17 14:46 01/09/17 14:46 01/09/17 14:46 Interpretation: Hypotensive - Notes Notes: PHYSICAL EXAMINATION: GENERAL: Well-appearing, in no acute distress. Blood pressure 96/51 in triage. HEAD: Atraumatic, normocephalic. EYES: Pupils equal round and reactive to light, extraocular movements intact. ENT: oropharynx clear without exudates. Moist mucous membranes. NECK: Normal range of motion, supple. LUNGS: Breath sounds clear and equal bilaterally. HEART: Regular rate and rhythm without murmurs. ABDOMEN: Soft, nontender except for some tenderness in the epigastrium. No guarding or rebound. No masses felt. BACK: No tenderness throughout entire back. EXTREMITIES: Normal range of motion without pain. NEUROLOGICAL: Normal speech, normal gait. Normal sensory, motor, and reflex exams. Awake, alert, and oriented x3. Cranial nerves normal. PSYCH: Normal mood, normal affect. SKIN: Warm, dry, no rashes. Course - Re-evaluation Re-evalutation: 01/09/17 18:23 Patient was hydrated with normal saline. Lab studies were obtained. Of note, patient's creatinine and BUN are higher than they have ever been. CT scan was obtained which showed mesenteric adenitis. Discussed with hospitalist chief innovation officer who is agreeable to admitting patient for hydration and further evaluation. - Vital Signs Vital signs: Temp Pulse Resp BP Pulse Ox 98.5 F 72 16 95/53 L 100 01/09/17 14:46 01/09/17 16:09 01/09/17 16:09 01/09/17 16:09 01/09/17 16:09 - Laboratory Result Diagrams: 01/09/17 14:58 01/09/17 14:58 Laboratory results interpreted by me: 01/09/17 01/09/17 01/09/17 14:58 14:58 15:55 Monocytes % 14.3 H Potassium 3.5 L BUN 43 H Creatinine 2.14 H Est GFR ( Amer) 28 L Est GFR (Non-Af Amer) 23 L Total Protein 8.5 H Lipase 615.0 H Ur Leukocyte Esterase TRACE H - Diagnostic Test Radiology reviewed: Image reviewed, Reports reviewed - CT of the abdomen and pelvis without contrast showed what is likely mesenteric adenitis, but no other acute illness. There is an infiltrative process described that was mentioned as a possible lymphoma. Discharge - Discharge Clinical Impression: Renal insufficiency Diarrhea Qualifiers: Diarrhea type: unspecified type Qualified Code(s): R19.7 - Diarrhea, unspecified Hypotension Qualifiers: Hypotension type: unspecified hypotension type Qualified Code(s): I95.9 - Hypotension, unspecified Pancreatitis Qualifiers: Pancreatitis type: unspecified pancreatitis type Acute pancreatitis complication: uninfected necrosis Condition: Stable Disposition: ADMITTED INPATIENT Admitting Provider: Hospitalist Unit Admitted: Telemetry
--- NOTE | 2017-01-09 16:32 | RADIOLOGY REPORT (SQ) ---
EXAM DESCRIPTION: CT ABD/PELVIS NO ORAL OR IV COMPLETED DATE/TIME: 01/09/2017 4:13 pm REASON FOR STUDY: Diarrhea 2 weeks, vomiting, epigastric pain COMPARISON: June 2016 TECHNIQUE: CT scan of the abdomen and pelvis performed without intravenous or oral contrast. Images reviewed with lung, soft tissue, and bone windows. Reconstructed coronal and sagittal MPR images revi ewed. All images stored on PACS. All CT scanners at this facility use dose modulation, iterative reconstruction, and/or weight based d osing when appropriate to reduce radiation dose to as low as reasonably achievable (ALARA). [facility]: Dose Right [facility]: CareDose [facility]: Dose Right [facility]: Teradose 4D [facility]: [employer] RADIATION DOSE: Up-to-date CT equipment and radiation dose reduction techniques were employed. CTDIv ol: 18.3 mGy. DLP: 975 mGy-cm.mGy. LIMITATIONS: None. FINDINGS: LOWER CHEST: Minimal ground-glass opacity is identified in the right middle lobe. No acut e consolidations or pleural effusions are identified. NON-CONTRASTED LIVER, SPLEEN, ADRENALS: Evaluation limited by lack of IV contrast. No identified sign ificant masses. PANCREAS: No masses. No peripancreatic inflammatory changes. GALLBLADDER: No identified stones by CT criteria. No inflammatory changes to suggest cholecystitis. RIGHT KIDNEY AND URETER: No suspicious masses. Assessment limited by lack of IV contrast. No signif icant calcifications. No hydronephrosis or hydroureter. LEFT KIDNEY AND URETER: No suspicious masses. Assessment limited by lack of IV contrast. No signifi cant calcifications. No hydronephrosis or hydroureter. AORTA AND RETROPERITONEUM: No aneurysm. Prominent periaortic lymph nodes are identified. BOWEL AND PERITONEAL CAVITY: The previously described mild haziness within the mesenteric in the lowe r quadrants appears less pronounced on the current study. Multiple prominent mesenteric lymph nodes are identified which are more pronounced in diffuse on the current study. The possibility of a mesen teric adenitis or other inflammatory process should be considered. The possibility of an infiltrativ e process including a lymphoma should be considered. APPENDIX: Normal. PELVIS, BLADDER, AND ABDOMINAL WALL:No abnormal masses. No free fluid. Bladder normal. BONES: No significant findings. OTHER: No other significant finding. IMPRESSION: The previously described mild haziness within the mesenteric in the lower quadrants appe ars less pronounced on the current study. There are multiple prominent mesenteric lymph nodes and pe riaortic lymph nodes as noted above. These are more pronounced than on the previous study. The poss ibility of a mesenteric adenitis or other inflammatory process should be considered. The possibility of an infiltrative process including a lymphoma should be considered. Other findings as noted above . TECHNICAL DOCUMENTATION: JOB ID: [id number] Quality ID # [id number]: Final reports with documentation of one or more dose reduction techniques (e.g., Au tomated exposure control, adjustment of the mA and/or kV according to patient size, use of iterative reconstruction technique) 2010 [employer]- All Rights Reserved
[2017-01-09 16:48] LABS: APPEARANCE,URINE CLOUDY; BILIRUBIN,URINE NEGATIVE (NEGATIVE); GLUCOSE, URINE NEGATIVE (NEGATIVE); KETONES,URINE NEGATIVE (NEGATIVE); LEUKOCYTE ESTERASE,URINE TRACE (NEGATIVE); NITRITE,URINE NEGATIVE (NEGATIVE); PROTEIN,URINE NEGATIVE (NEGATIVE); URINE SPECIFIC GRAVITY 1.016; UROBILINOGEN,URINE NEGATIVE mg/dL (<2.0)
[2017-01-09] MEDS ORDERED: MAG HYDROX/AL HYDROX/SIMETH SUSP 30 ML UDCUP PO PRN (18:08)
[2017-01-09] MEDS ORDERED: GLUCAGON,HUMAN RECOMB 1 MG INJ IM PRN (18:13)
[2017-01-09] MEDS ORDERED: DEXTROSE 40% GEL 15 GM TUBE PO PRN ×2 (18:13)
[2017-01-09] MEDS ORDERED: DEXTROSE 50%-WATER 25 GM/50 ML DISP.SYRIN IV PRN ×2 (18:13)
[2017-01-09] MEDS ORDERED: INSULIN LISPRO 100 UNIT/ML 3 ML VIAL SUBCUT PRN (18:13)
[2017-01-09] MEDS ORDERED: NORMAL SALINE 1000 ML 2,000 ML IV ONE (18:14)
--- NOTE | 2017-01-09 19:41 | PDOC H&P ---
History of Present Illness Admission Date/PCP: 01/09/17 18:08 ISABEL FLORES MD History of Present Illness: BONNY ASKEW is a 61 year old female with past medical history of hypertension, hyperlipidemia, and diabetes mellitus reports 2 weeks of diarrhea. Patient reports she has had liquid stools that are foul-smelling. She denies any hematochezia or melena. Patient reports that she has had significant amounts of nausea for several months. She reports that she started vomiting 2 days ago and was unable to keep anything down. She reports that she had back pain underneath her shoulder blades particularly on the right beginning yesterday. She does report some midepigastric pain. She denies feeling the need for any sort of pain medication at this time and denies that the pain worsens with eating. Today she reports going into work and feeling weak and dizzy and having some spots before her vision. She states she went to her primary care physician and was found to have a low blood pressure 80/40 and reported to the emergency department. Patient denies any fevers or chills or night sweats. Patient does report an intentional 80 pound weight loss. Patient reports starting anterolaterally approximately 1 year ago she does describe to currently a frontal headache which is new for her. She reports that she did have her hemoglobin A1c done approximately a week ago and was found to be 5.9. Patient is referred to hospital service for acute renal failure, hypotension, and persistent diarrhea. Past Medical History Cardiac Medical History: Reports: Hyperlipidema, Hypertension Denies: Myocardial Infarction Pulmonary Medical History: Denies: Asthma Neurological Medical History: Denies: Seizures Endocrine Medical History: Reports: Diabetes Mellitus Type 2 - On Trulicity injection once a week. Says that she has lost 80 pounds. Renal/ Medical History: Reports: Chronic Kidney Disease GI Medical History: Reports: Gastroesophageal Reflux Disease Denies: Diverticulitis, Hepatitis, Hiatal Hernia Psychiatric Medical History: Reports: Depression Hematology: Denies: Anemia, Sickle Cell Disease Past Surgical History Past Surgical History: Reports: Tonsillectomy Denies: Amputation, Hysterectomy, Mastectomy, Pacemaker Social History Smoking Status: Former Smoker Frequency of Alcohol Use: None Hx Recreational Drug Use: No Drugs: None Hx Prescription Drug Abuse: No - Advance Directive Resuscitation Status: Full Code Surrogate healthcare decision maker:: Cliff Wren son Family History Family History: CAD, Malignancy Parental Family History Reviewed: Yes Children Family History Reviewed: Yes Sibling(s) Family History Reviewed.: Yes Medication/Allergy Home Medications: Cholecalciferol (Vitamin D3) [Vitamin D3 5000 unit Capsule] 5,000 units PO DAILY 01/09/17 Citalopram Hydrobromide [Celexa 40 mg Tablet] 40 mg PO QHS 01/09/17 Dulaglutide [Trulicity] 1.5 mg SQ SILVA@1000 01/09/17 Lisinopril [Zestril] 20 mg PO DAILY 01/09/17 Multivitamin [Daily Multiple Vitamin] 1 tab PO DAILY 01/09/17 Rosuvastatin Calcium [Crestor 10 mg Tablet] 10 mg PO DAILY 01/09/17 Sulindac 150 mg PO DAILY 01/09/17 Ubidecarenone [Co Q-10] 1 cap PO DAILY 01/09/17 Allergies/Adverse Reactions: No Known Allergies Allergy (Verified 01/09/17 14:43) Review of Systems Constitutional: PRESENT: as per HPI, headache(s), weakness, weight loss. ABSENT : chills, fever(s), weight gain Eyes: ABSENT: visual disturbances Ears: ABSENT: hearing changes Nose, Mouth, and Throat: PRESENT: headache(s) Cardiovascular: ABSENT: chest pain, dyspnea on exertion, edema, orthropnea, palpitations Respiratory: ABSENT: cough, dyspnea, hemoptysis, sputum Gastrointestinal: PRESENT: as per HPI, abdominal pain, diarrhea, heartburn, nausea, vomiting. ABSENT: constipation, hematemesis, hematochezia, melena Genitourinary: ABSENT: dysuria, hematuria Musculoskeletal: ABSENT: joint swelling Integumentary: ABSENT: rash, wounds Neurological: ABSENT: abnormal gait, abnormal speech, confusion, dizziness, focal weakness, syncope Psychiatric: ABSENT: anxiety, depression, homidical ideation, suicidal ideation Endocrine: ABSENT: cold intolerance, heat intolerance, polydipsia, polyuria Hematologic/Lymphatic: ABSENT: easy bleeding, easy bruising Physical Exam Vital Signs: Temp Pulse Resp BP Pulse Ox 98.5 F 70 16 107/63 100 01/09/17 14:46 01/09/17 18:47 01/09/17 18:47 01/09/17 18:47 01/09/17 19:00 General appearance: PRESENT: obese, well-developed, well-nourished Head exam: PRESENT: atraumatic, normocephalic Eye exam: PRESENT: conjunctiva pink, EOMI, PERRLA. ABSENT: scleral icterus Ear exam: PRESENT: normal external ear exam Mouth exam: PRESENT: dry mucosa, tongue midline Neck exam: PRESENT: lymphadenopathy - Right submandibular adenopathy. ABSENT: JVD, thyromegaly, tracheal deviation Respiratory exam: PRESENT: clear to auscultation joni. ABSENT: rales, rhonchi, wheezes Cardiovascular exam: PRESENT: RRR, +S1, +S2. ABSENT: diastolic murmur, rubs, systolic murmur Pulses: PRESENT: normal dorsalis pedis pul Vascular exam: PRESENT: normal capillary refill GI/Abdominal exam: PRESENT: Aguilar's sign, normal bowel sounds, soft. ABSENT: distended, firm, guarding, mass, organolmegaly, rebound, rigid, tenderness Rectal exam: PRESENT: deferred Extremities exam: PRESENT: full ROM. ABSENT: calf tenderness, clubbing, pedal edema Neurological exam: PRESENT: alert, awake, oriented to person, oriented to place , oriented to time, oriented to situation, CN II-XII grossly intact. ABSENT: motor sensory deficit Psychiatric exam: PRESENT: appropriate affect, normal mood. ABSENT: homicidal ideation, suicidal ideation Skin exam: PRESENT: dry, intact, warm. ABSENT: cyanosis, rash Results Impressions: Abdomen/Pelvis CT 01/09/17 15:50 IMPRESSION: The previously described mild haziness within the mesenteric in the lower quadrants appears less pronounced on the current study. There are multiple prominent mesenteric lymph nodes and periaortic lymph nodes as noted above. These are more pronounced than on the previous study. The possibility of a mesenteric adenitis or other inflammatory process should be considered. The possibility of an infiltrative process including a lymphoma should be considered. Other findings as noted above. Assessment & Plan - Diagnosis (1) Elevated lipase Is this a current diagnosis for this admission?: YesPlan: Suspect due to PUD (2) Diarrhea Qualifiers: Diarrhea type: unspecified type Qualified Code(s): R19.7 - Diarrhea, unspecified Is this a current diagnosis for this admission?: YesPlan: Obtain stool studies including culture, C. difficile, fecal leukocytes, and guaiac. Patient reports her last colonoscopy was several years ago but reported it was normal at that time. Will consult GI when available. (3) Hypotension Qualifiers: Hypotension type: orthostatic hypotension Qualified Code(s): I95.1 - Orthostatic hypotension Is this a current diagnosis for this admission?: YesPlan: IVF (4) DVT prophylaxis Is this a current diagnosis for this admission?: YesPlan: heparin (5) Depression Qualifiers: Depression Type: unspecified Qualified Code(s): F32.9 - Major depressive disorder, single episode, unspecified Is this a current diagnosis for this admission?: Yes (6) Diabetes mellitus type II, controlled Qualifiers: Diabetes mellitus complication status: with unspecified complications Diabetes mellitus snf insulin use: without snf use Qualified Code(s): E11.8 - Type 2 diabetes mellitus with unspecified complications Is this a current diagnosis for this admission?: YesPlan: Reports last hgba1c 5.9 Hold trulicity as it commonly causes nausea, vomiting, diarrhea, abdominal pain , and rarely pancreatitis (7) Dehydration Is this a current diagnosis for this admission?: YesPlan: IVF (8) Severe obesity (BMI 35.0-39.9) with comorbidity Is this a current diagnosis for this admission?: Yes - Time Time Spent: 50 to 70 Minutes Medications reviewed and adjusted accordingly: Yes - Inpatient Certification Based on my medical assessment, after consideration of the patient's comorbidities, presenting symptoms, or acuity I expect that the services needed warrant INPATIENT care.: Yes I certify that my determination is in accordance with my understanding of Medicare's requirements for reasonable and necessary INPATIENT services [42 CFR 412.3e].: Yes Medical Necessity: Need For IV Fluids, Risk of Complication if Not Cared For in Hospital, Risk of Diagnosis Which Will Require Inpatient Eval/Care/Monitoring Post 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
[2017-01-09] MEDS ORDERED: MORPHINE SULFATE 10 MG/ML INJ IV PRN (20:15)
[2017-01-09] MEDS ORDERED: METOCLOPRAMIDE HCL ORAL SOLN 10 MG/10 ML UDCUP PO ONE (20:15)
[2017-01-09] MEDS ORDERED: LIDOCAINE 2% VISCOUS SOLN 20 ML UDCUP PO ONE (20:15)
[2017-01-09] MEDS ORDERED: MAG HYDROX/AL HYDROX/SIMETH SUSP 30 ML UDCUP PO ONE (20:15)
[2017-01-09] MEDS: NORMAL SALINE 1000 ML 1,000 ML IV PRN (21:32)
[2017-01-09] MEDS: HEPARIN SOD (PORCINE) 5,000 UNIT/ML 1 ML SYRINGE SUBCUT SCH (21:38)
[2017-01-09] MEDS: METOCLOPRAMIDE HCL INJ/PF 10 MG/2 ML SDV IV SCH (21:38)
[2017-01-10] MEDS: NORMAL SALINE 1000 ML 1,000 ML IV PRN ×4 (02:21→22:27)
[2017-01-10] MEDS: HEPARIN SOD (PORCINE) 5,000 UNIT/ML 1 ML SYRINGE SUBCUT SCH ×3 (05:09→22:26)
[2017-01-10 05:19] LABS: ABSOLUTE EOSINOPHILS # (AUTO) 0.2 10^3/uL (0.0-0.6); ABSOLUTE LYMPHOCYTES (AUTO) 1.5 10^3/uL (0.5-4.7)
[2017-01-10 05:23] LABS: ABSOLUTE MONOCYTES (AUTO) 0.9 10^3/uL (0.1-1.4); ABSOLUTE NEUT (AUTO) 2.5 10^3/uL (1.7-8.2); BASOPHILS % (AUTO) 0.7 % (0-2); EOSINOPHILS % (AUTO) 3.7 % (0-6); HEMATOCRIT 34.2 % (36.0-47.0); HGB HCT DIFFERENCE 0.3; LYMPHOCYTES % (AUTO) 29.8 % (13-45); MEAN CORPUSCULAR HGB CONC 33.6 g/dL (32.0-36.0); MEAN CORPUSCULAR VOLUME 86 fl (80-97); MONOCYTES % (AUTO) 16.8 % (3-13); RED BLOOD COUNT 3.97 10^6/uL (3.72-5.28); RED CELL DISTRIBUTION WIDTH 13.9 % (11.5-14.0); WHITE BLOOD COUNT 5.1 10^3/uL (4.0-10.5)
[2017-01-10 05:24] LABS: HEMOGLOBIN 11.5 g/dL (12.0-15.5)
[2017-01-10 05:41] LABS: ALANINE AMINOTRANSFERASE 24 U/L (9-52); ALBUMIN 3.2 g/dL (3.5-5.0); ALKALINE PHOSPHATASE 65 U/L (38-126); ANION GAP 9 (5-19); ASPARTATE AMINO TRANSFERASE 22 U/L (14-36); BILIRUBIN,DIRECT 0.3 mg/dL (0.0-0.4); BILIRUBIN,TOTAL 0.6 mg/dL (0.2-1.3); BLOOD UREA NITROGEN 25 mg/dL (7-20); CALCIUM 8.3 mg/dL (8.4-10.2); CARBON DIOXIDE 20 mmol/L (22-30); CHLORIDE 111 mmol/L (98-107); CREATININE RESULT 0.93 mg/dL (0.52-1.25); GLUCOSE 95 mg/dL (75-110); MAGNESIUM 1.8 mg/dL (1.6-2.3); PHOSPHORUS 3.1 mg/dL (2.5-4.5); POTASSIUM 3.6 mmol/L (3.6-5.0); SODIUM 140.1 mmol/L (137-145); TOTAL PROTEIN 6.3 g/dL (6.3-8.2)
--- NOTE | 2017-01-10 05:49 | RADIOLOGY REPORT (SQ) ---
EXAM DESCRIPTION: U/S ABDOMEN LIMITED W/O DOP COMPLETED DATE/TIME: 01/10/2017 5:40 am REASON FOR STUDY: ruq pain COMPARISON: None. TECHNIQUE: Dynamic and static grayscale images acquired of the abdomen and recorded on PACS. Additio nal selected color Doppler and spectral images recorded. LIMITATIONS: None. FINDINGS: PANCREAS: No masses. Visualized pancreatic duct normal caliber. LIVER: No masses. Echotexture normal. LIVER VASCULATURE: Normal directional flow of the main portal vein and hepatic veins. GALLBLADDER: No stones. Normal wall thickness. No pericholecystic fluid. ULTRASOUND-DETECTED CHAVEZ'S SIGN: Negative. INTRAHEPATIC DUCTS AND COMMON DUCT: CBD and intrahepatic ducts normal caliber. No filling defects. INFERIOR VENA CAVA: Normal flow. AORTA: No aneurysm. RIGHT KIDNEY: Normal size. Normal echogenicity. No solid or suspicious masses. No hydronephrosis. No calcifications. PERITONEAL AND RIGHT PLEURAL SPACE: No ascites or effusions. OTHER: No other significant findings. IMPRESSION: NORMAL RIGHT UPPER QUADRANT ULTRASOUND. TECHNICAL DOCUMENTATION: JOB ID: [id number] [employer]- All Rights Reserved
[2017-01-10] MEDS: METOCLOPRAMIDE HCL INJ/PF 10 MG/2 ML SDV IV SCH (07:46)
[2017-01-10] MEDS ORDERED: ATORVASTATIN CALCIUM 10 MG TABLET PO SCH (10:00)
[2017-01-10] MEDS ORDERED: CITALOPRAM HYDROBROMIDE 20 MG TABLET PO SCH (10:00)
[2017-01-10] MEDS ORDERED: DIPHENOXYLATE HCL/ATROP SULF 2.5-0.025 MG TABLET PO ONE (12:46)
[2017-01-10] MEDS ORDERED: POTASSIUM CHLORIDE 10 MEQ TABLET.SA PO ONE (12:46)
[2017-01-10] MEDS: MAGNESIUM SULFATE/D5W 100 ML IV SCH ×2 (13:39→14:55)
[2017-01-10] MEDS: DIPHENOXYLATE HCL/ATROP SULF 2.5-0.025 MG TABLET PO PRN (16:10)
--- NOTE | 2017-01-10 17:18 | PDOC PROGRESS REPORT ---
Subjective Progress Note for:: 01/10/17 Subjective:: Patient continues to complain of diarrhea. She does report this has slowed down somewhat. She does report feeling slightly improved, but is far from baseline. Patient complains of some midepigastric discomfort, but reports this is not worsened by eating. Patient denies chest pain, shortness of breath, nausea, vomiting, fevers, chills , constipation, headache, new onset weakness. Physical Exam Vital Signs: Temp Pulse Resp BP Pulse Ox 98.3 F 82 17 101/52 L 98 01/10/17 11:36 01/10/17 14:00 01/10/17 11:36 01/10/17 11:36 01/10/17 11:36 Intake & Output 01/09/17 01/10/17 01/11/17 06:59 06:59 06:59 Intake Total 1550 570 Output Total 100 500 Balance 1450 70 Weight 104.1 kg Results Laboratory Results: 01/10/17 04:53 01/10/17 04:53 01/09/17 01/09/17 01/10/17 22:00 22:00 04:53 WBC 5.1 RBC 3.97 Hgb 11.5 L D Hct 34.2 L MCV 86 MCH 29.0 MCHC 33.6 RDW 13.9 Plt Count 189 Seg Neutrophils % 49.0 Lymphocytes % 29.8 Monocytes % 16.8 H Eosinophils % 3.7 Basophils % 0.7 Absolute Neutrophils 2.5 Absolute Lymphocytes 1.5 Absolute Monocytes 0.9 Absolute Eosinophils 0.2 Absolute Basophils 0.0 Sodium Potassium Chloride Carbon Dioxide Anion Gap BUN Creatinine Est GFR ( Amer) Est GFR (Non-Af Amer) Glucose Calcium Phosphorus Magnesium Total Bilirubin AST ALT Alkaline Phosphatase Total Protein Albumin Lipase Stool Occult Blood NEGATIVE Stool for White Cells FEW H 01/10/17 01/10/17 04:53 04:53 WBC RBC Hgb Hct MCV MCH MCHC RDW Plt Count Seg Neutrophils % Lymphocytes % Monocytes % Eosinophils % Basophils % Absolute Neutrophils Absolute Lymphocytes Absolute Monocytes Absolute Eosinophils Absolute Basophils Sodium 140.1 Potassium 3.6 Chloride 111 H Carbon Dioxide 20 L Anion Gap 9 BUN 25 H Creatinine 0.93 Est GFR ( Amer) > 60 Est GFR (Non-Af Amer) > 60 Glucose 95 Calcium 8.3 L Phosphorus 3.1 Magnesium 1.8 Total Bilirubin 0.6 AST 22 ALT 24 Alkaline Phosphatase 65 Total Protein 6.3 Albumin 3.2 L Lipase 571.4 H Stool Occult Blood Stool for White Cells Impressions: Abdomen/Pelvis CT 01/09/17 15:50 IMPRESSION: The previously described mild haziness within the mesenteric in the lower quadrants appears less pronounced on the current study. There are multiple prominent mesenteric lymph nodes and periaortic lymph nodes as noted above. These are more pronounced than on the previous study. The possibility of a mesenteric adenitis or other inflammatory process should be considered. The possibility of an infiltrative process including a lymphoma should be considered. Other findings as noted above. Abdomen Ultrasound 01/10/17 00:00 IMPRESSION: NORMAL RIGHT UPPER QUADRANT ULTRASOUND. Assessment & Plan - Diagnosis (1) Elevated lipase Is this a current diagnosis for this admission?: YesPlan: Suspect that this is likely secondary to peptic ulcer disease. Patient reports no worsening of her midepigastric pain with eating. (2) Diarrhea Qualifiers: Diarrhea type: unspecified type Qualified Code(s): R19.7 - Diarrhea, unspecified Is this a current diagnosis for this admission?: YesPlan: Concern at this time for inflammatory condition. Could also be related to medication including Trulicity. Other differential includes: IBS, Other medications, Inflammatory condition, food allergies, Collagenous colitis, lymphocytic colitis, malabsorbption, bacterial overgrowth, celiac. Plan to prep patient for upper and lower endoscopy. (3) Hypotension Qualifiers: Hypotension type: orthostatic hypotension Qualified Code(s): I95.1 - Orthostatic hypotension Is this a current diagnosis for this admission?: YesPlan: Improved secondary to volume depletion (4) Depression Qualifiers: Depression Type: unspecified Qualified Code(s): F32.9 - Major depressive disorder, single episode, unspecified Is this a current diagnosis for this admission?: Yes (5) Diabetes mellitus type II, controlled Qualifiers: Diabetes mellitus complication status: with unspecified complications Diabetes mellitus assisted insulin use: without assisted use Qualified Code(s): E11.8 - Type 2 diabetes mellitus with unspecified complications; Z79.4 - long-term (current) use of insulin Is this a current diagnosis for this admission?: YesPlan: Reports last hgba1c 5.9 Hold trulicity as it commonly causes nausea, vomiting, diarrhea, abdominal pain , and rarely pancreatitis (6) Severe obesity (BMI 35.0-39.9) with comorbidity Is this a current diagnosis for this admission?: Yes (7) DVT prophylaxis Is this a current diagnosis for this admission?: Yes (8) Abdominal lymphadenopathy Is this a current diagnosis for this admission?: YesPlan: Repeat CT with contrast today. - Time Time Spent with patient: 25-34 minutes Medications reviewed and adjusted accordingly: Yes Anticipated discharge: Home Within: Other - Upon improvement of symptomatology
[2017-01-10] MEDS: SUCRALFATE SUSP 1 GM/10 ML UDCUP PO SCH (18:22)
--- NOTE | 2017-01-10 19:09 | RADIOLOGY REPORT (SQ) ---
EXAM DESCRIPTION: CTA ABDOMEN/PELVIS W WO COMPLETED DATE/TIME: 01/10/2017 6:20 pm REASON FOR STUDY: mesenteric adenopathy, concern for ischemia COMPARISON: 01/09/2017 can 06/23/2016 TECHNIQUE: CT scan of the abdominal aorta extending to the iliac bifurcation performed with oral and intravenous contrast using helical scanning technique with dynamic intravenous contrast injection. Delayed imaging acquired. Images reviewed with lung, soft tissue, and bone windows. Reconstructed co get and sagittal MPR images reviewed. All images stored on PACS. Advanced 3D imaging as volume rendering, MIPS, SSD performed? yes All CT scanners at this facility use dose modulation, iterative reconstruction, and/or weight based d osing when appropriate to reduce radiation dose to as low as reasonably achievable (ALARA). [facility]: Dose Right [facility]: CareDose [facility]: Dose Right [facility]: Teradose 4D [facility]: 3dCart Shopping Cart Software CONTRAST TYPE AND DOSE: contrast/concentration: Isovue 370.00 mg/ml; Total Contrast Delivered: 100.0 ml; Total Saline Delivered: 50.0 ml RENAL FUNCTION: GFR > 60. LIMITATIONS: None. FINDINGS: AORTA AND VESSELS: Scattered calcified and noncalcified plaque. No aneurysm. No dissectio n. Renal arteries, SMA, celiac without stenosis. LUNG BASES: Stable scarring within the visualized right middle lobe. No new airspace opacities. LIVER: Normal size. No masses or dilated ducts. SPLEEN: Normal size. No focal lesions. PANCREAS: No masses. No significant calcifications. No adjacent inflammation or peripancreatic fluid collections. Pancreatic duct not dilated. GALLBLADDER: No identified stones by CT criteria. No inflammatory changes to suggest cholecystitis. ADRENAL GLANDS: No significant masses or asymmetry. RIGHT KIDNEY AND URETER: No mass, calculi or urinary tract obstruction. LEFT KIDNEY AND URETER: No mass, calculi or urinary tract obstruction. RETROPERITONEUM: Stable appearance of mildly prominent periaortic lymph nodes. No hemorrhage. BOWEL AND PERITONEAL CAVITY: Scattered colonic diverticula without acute inflammatory change. Small and large bowel loops otherwise normal. Stable prominence of mesenteric lymph nodes most notably inv olving the ureter caval and periportal chains. APPENDIX: Normal. ABDOMINAL WALL: No masses. No hernias. BONY STRUCTURES: Stable degenerative change without fracture or suspicious osseous lesion. 3-D IMAGING: Confirms the above findings. OTHER: No other significant finding. IMPRESSION: NO ABDOMINAL AORTIC ANEURYSM, DISSECTION OR SIGNIFICANT STENOSIS. NO SIGNIFICANT FINDING S IN THE ABDOMEN. AGAIN NOTED ARE PROMINENT MESENTERIC AND RETROPERITONEAL LYMPH NODES WHICH ARE NONSPECIFIC AND MAY BE RELATED TO ADENITIS HOWEVER CAN ALSO BE SEEN WITH LYMPHOMA. CORRELATE WITH LABORATORY DATA AND FOLL OW-UP IMAGING IN 3 TO 6 MONTHS TO ENSURE STABILITY. TECHNICAL DOCUMENTATION: JOB ID: [id number] Quality ID # [id number]: Final reports with documentation of one or more dose reduction techniques (e.g., Au tomated exposure control, adjustment of the mA and/or kV according to patient size, use of iterative reconstruction technique) 2010 [employer]- All Rights Reserved
[2017-01-10] MEDS ORDERED: ATORVASTATIN CALCIUM 20 MG TABLET PO SCH (22:00)
[2017-01-10] MEDS: CITALOPRAM HYDROBROMIDE 20 MG TABLET PO SCH (22:26)
[2017-01-11] MEDS: SUCRALFATE SUSP 1 GM/10 ML UDCUP PO SCH ×5 (00:13→23:24)
[2017-01-11] MEDS: ONDANSETRON HCL INJ/PF 4 MG/2 ML SDV IV PRN ×2 (03:08→12:17)
[2017-01-11] MEDS: NORMAL SALINE 1000 ML 1,000 ML IV PRN ×4 (03:09→23:25)
[2017-01-11 05:33] LABS: ABSOLUTE EOSINOPHILS # (AUTO) 0.1 10^3/uL (0.0-0.6); ABSOLUTE MONOCYTES (AUTO) 0.7 10^3/uL (0.1-1.4); ABSOLUTE NEUT (AUTO) 4.3 10^3/uL (1.7-8.2); BASOPHILS % (AUTO) 0.4 % (0-2); EOSINOPHILS % (AUTO) 2.4 % (0-6); HEMATOCRIT 34.4 % (36.0-47.0); HEMOGLOBIN 11.6 g/dL (12.0-15.5); HGB HCT DIFFERENCE 0.4; MEAN CORPUSCULAR HEMOGLOBIN 29.1 pg (27.0-33.4); MEAN CORPUSCULAR HGB CONC 33.8 g/dL (32.0-36.0); MEAN CORPUSCULAR VOLUME 86 fl (80-97); MONOCYTES % (AUTO) 10.9 % (3-13); RED BLOOD COUNT 3.99 10^6/uL (3.72-5.28); RED CELL DISTRIBUTION WIDTH 13.9 % (11.5-14.0); SEGMENTED NEUTROPHILS % (AUTO) 70.3 % (42-78); WHITE BLOOD COUNT 6.1 10^3/uL (4.0-10.5)
[2017-01-11] MEDS: HEPARIN SOD (PORCINE) 5,000 UNIT/ML 1 ML SYRINGE SUBCUT SCH ×3 (06:46→21:04)
[2017-01-11] MEDS: DIPHENOXYLATE HCL/ATROP SULF 2.5-0.025 MG TABLET PO PRN (07:37)
[2017-01-11] MEDS: ACETAMINOPHEN 325 MG TABLET PO PRN ×3 (07:56→21:03)
[2017-01-11] MEDS ORDERED: LOPERAMIDE HCL 2 MG CAPSULE PO PRN (10:07)
[2017-01-11] MEDS ORDERED: LOPERAMIDE HCL 2 MG CAPSULE PO ONE (10:30)
[2017-01-11] MEDS: CHOLECALCIFEROL (D3) 1,000 UNIT TABLET PO SCH (11:00)
[2017-01-11] MEDS: LISINOPRIL 10 MG TABLET PO SCH (11:01)
[2017-01-11] MEDS: CIPROFLOXACIN 400 MG/D5W RTU 200 ML IV SCH ×2 (11:02→21:02)
[2017-01-11 11:07] LABS: APPEARANCE,URINE CLEAR; BILIRUBIN,URINE NEGATIVE (NEGATIVE); GLUCOSE, URINE NEGATIVE (NEGATIVE); KETONES,URINE NEGATIVE (NEGATIVE); LEUKOCYTE ESTERASE,URINE NEGATIVE (NEGATIVE); NITRITE,URINE NEGATIVE (NEGATIVE); PROTEIN,URINE NEGATIVE (NEGATIVE); URINE SPECIFIC GRAVITY 1.012; UROBILINOGEN,URINE NEGATIVE mg/dL (<2.0)
[2017-01-11] MEDS: METRONIDAZOLE 500 MG/NS RTU 100 ML IV SCH ×3 (11:58→23:25)
[2017-01-11] MEDS: IBUPROFEN 600 MG TABLET PO PRN (12:12)
--- NOTE | 2017-01-11 16:36 | PDOC PROGRESS REPORT ---
Subjective Progress Note for:: 01/11/17 Subjective:: Patient continues to have diarrhea. She reports this is nonbloody. She reports she is continuing to feel worse and spiked a fever today of 102.2. Degrees Fahrenheit. Patient denies chest pain, shortness of breath, vomiting, constipation, headache , new onset weakness. Physical Exam Vital Signs: Temp Pulse Resp BP Pulse Ox 99.5 F 86 16 121/53 L 96 01/11/17 04:09 01/11/17 04:09 01/11/17 04:09 01/11/17 04:09 01/11/17 04:09 Intake & Output 01/10/17 01/11/17 01/12/17 06:59 06:59 06:59 Intake Total 1550 2995 Output Total 100 1600 Balance 1450 1395 Weight 104.1 kg 104.1 kg Exam: General: Awake alert and oriented x3, no acute respiratory distress HEENT: AT/NC, PERRL, EOMI, oropharynx is moist, pink, no scleral icterus, no conjunctival injection Neck: No JVD, trachea midline Chest: Clear to auscultation bilaterally, no wheezes rhonchi or rales CV: Regular rate and rhythm, normal S1 and S2, no murmur, rub, or gallop Abdomen: Soft, tender to palpation midepigastric region, nondistended, active bowel sounds; no rebound, rigidity, or guarding, negative Aguilar sign Extremities: No cyanosis, clubbing or edema Neuro: Cranial nerves II through XII are grossly intact without focal deficits; awake alert and oriented x3 Psych: Normal mood and affect Results Laboratory Results: 01/11/17 04:31 01/10/17 04:53 01/10/17 01/11/17 04:53 04:31 WBC 6.1 RBC 3.99 Hgb 11.6 L Hct 34.4 L MCV 86 MCH 29.1 MCHC 33.8 RDW 13.9 Plt Count 200 Seg Neutrophils % 70.3 Lymphocytes % 16.0 Monocytes % 10.9 Eosinophils % 2.4 Basophils % 0.4 Absolute Neutrophils 4.3 Absolute Lymphocytes 1.0 Absolute Monocytes 0.7 Absolute Eosinophils 0.1 Absolute Basophils 0.0 Lipase 571.4 H Impressions: Abdomen/Pelvis CT 01/09/17 15:50 IMPRESSION: The previously described mild haziness within the mesenteric in the lower quadrants appears less pronounced on the current study. There are multiple prominent mesenteric lymph nodes and periaortic lymph nodes as noted above. These are more pronounced than on the previous study. The possibility of a mesenteric adenitis or other inflammatory process should be considered. The possibility of an infiltrative process including a lymphoma should be considered. Other findings as noted above. Abdomen Ultrasound 01/10/17 00:00 IMPRESSION: NORMAL RIGHT UPPER QUADRANT ULTRASOUND. Abdomen/Pelvis CTA 01/10/17 00:00 IMPRESSION: NO ABDOMINAL AORTIC ANEURYSM, DISSECTION OR SIGNIFICANT STENOSIS. NO SIGNIFICANT FINDINGS IN THE ABDOMEN. AGAIN NOTED ARE PROMINENT MESENTERIC AND RETROPERITONEAL LYMPH NODES WHICH ARE NONSPECIFIC AND MAY BE RELATED TO ADENITIS HOWEVER CAN ALSO BE SEEN WITH LYMPHOMA. CORRELATE WITH LABORATORY DATA AND FOLLOW-UP IMAGING IN 3 TO 6 MONTHS TO ENSURE STABILITY. Assessment & Plan - Diagnosis (1) Sepsis Qualifiers: Sepsis type: sepsis due to unspecified organism Qualified Code(s): A41.9 - Sepsis, unspecified organism Is this a current diagnosis for this admission?: YesPlan: Patient with sepsis likely present on admission, secondary to infectious diarrhea. Start patient on Cipro and Flagyl and reculture her urine and stool and blood. (2) Elevated lipase Is this a current diagnosis for this admission?: YesPlan: Suspect that this is likely secondary to peptic ulcer disease. Patient reports no worsening of her midepigastric pain with eating. (3) Diarrhea Qualifiers: Diarrhea type: presumed infectious Qualified Code(s): A09 - Infectious gastroenteritis and colitis, unspecified Is this a current diagnosis for this admission?: YesPlan: At this time, presuming diarrhea is infectious in nature which would coincide with her mesenteric adenopathy. Initiate patient on Cipro and Flagyl. Reculture her diarrhea. Could also be related to medication including Trulicity. Other differential includes: IBS, Other medications, Inflammatory condition, food allergies, Collagenous colitis, lymphocytic colitis, malabsorbption, bacterial overgrowth, celiac. (4) Hypotension Qualifiers: Hypotension type: orthostatic hypotension Qualified Code(s): I95.1 - Orthostatic hypotension Is this a current diagnosis for this admission?: YesPlan: Improved secondary to volume depletion patient continues to require IV fluids at 200 mL/h (5) Depression Qualifiers: Depression Type: unspecified Qualified Code(s): F32.9 - Major depressive disorder, single episode, unspecified Is this a current diagnosis for this admission?: Yes (6) Diabetes mellitus type II, controlled Qualifiers: Diabetes mellitus complication status: with unspecified complications Diabetes mellitus alf insulin use: without long line teamster use Qualified Code(s): E11.8 - Type 2 diabetes mellitus with unspecified complications; Z79.4 - residential (current) use of insulin Is this a current diagnosis for this admission?: YesPlan: Reports last hgba1c 5.9 Hold trulicity as it commonly causes nausea, vomiting, diarrhea, abdominal pain , and rarely pancreatitis (7) Severe obesity (BMI 35.0-39.9) with comorbidity Is this a current diagnosis for this admission?: Yes (8) DVT prophylaxis Is this a current diagnosis for this admission?: Yes (9) Abdominal lymphadenopathy Is this a current diagnosis for this admission?: YesPlan: Have discussed the results of her CT of the abdomen with her. She does understand that she requires a repeat CT of the abdomen in 3-6 months to document resolution of her mesenteric adenopathy. Suspect that this is likely secondary to underlying infectious process such as Yersinia or viral process. However, cannot rule out lymphoma at this time. - Time Time Spent with patient: 25-34 minutes Medications reviewed and adjusted accordingly: Yes
[2017-01-11] MEDS: CITALOPRAM HYDROBROMIDE 20 MG TABLET PO SCH (21:03)
[2017-01-11] MEDS ORDERED: ATORVASTATIN CALCIUM 20 MG TABLET PO SCH (22:00)
[2017-01-12] MEDS: ONDANSETRON HCL INJ/PF 4 MG/2 ML SDV IV PRN ×2 (04:41→12:01)
[2017-01-12 06:09] LABS: ABSOLUTE EOSINOPHILS # (AUTO) 0.4 10^3/uL (0.0-0.6); ABSOLUTE LYMPHOCYTES (AUTO) 0.9 10^3/uL (0.5-4.7); ABSOLUTE MONOCYTES (AUTO) 0.9 10^3/uL (0.1-1.4); ABSOLUTE NEUT (AUTO) 4.9 10^3/uL (1.7-8.2); BASOPHILS % (AUTO) 0.3 % (0-2); EOSINOPHILS % (AUTO) 5.6 % (0-6); HEMATOCRIT 35.4 % (36.0-47.0); HEMOGLOBIN 11.9 g/dL (12.0-15.5); HGB HCT DIFFERENCE 0.3; LYMPHOCYTES % (AUTO) 12.8 % (13-45); MEAN CORPUSCULAR HEMOGLOBIN 29.3 pg (27.0-33.4); MEAN CORPUSCULAR HGB CONC 33.7 g/dL (32.0-36.0); MEAN CORPUSCULAR VOLUME 87 fl (80-97); MONOCYTES % (AUTO) 12.5 % (3-13); RED BLOOD COUNT 4.07 10^6/uL (3.72-5.28); RED CELL DISTRIBUTION WIDTH 13.9 % (11.5-14.0); SEGMENTED NEUTROPHILS % (AUTO) 68.8 % (42-78)
[2017-01-12] MEDS: METRONIDAZOLE 500 MG/NS RTU 100 ML IV SCH (06:41)
[2017-01-12] MEDS: SUCRALFATE SUSP 1 GM/10 ML UDCUP PO SCH ×2 (06:41→11:22)
[2017-01-12] MEDS: HEPARIN SOD (PORCINE) 5,000 UNIT/ML 1 ML SYRINGE SUBCUT SCH ×3 (06:42→21:16)
[2017-01-12 08:09] LABS: ABSOLUTE EOSINOPHILS # (AUTO) 0.4 10^3/uL (0.0-0.6); ABSOLUTE LYMPHOCYTES (AUTO) 0.9 10^3/uL (0.5-4.7); ABSOLUTE MONOCYTES (AUTO) 0.7 10^3/uL (0.1-1.4); ABSOLUTE NEUT (AUTO) 6.6 10^3/uL (1.7-8.2); BASOPHILS % (AUTO) 0.2 % (0-2); EOSINOPHILS % (AUTO) 4.9 % (0-6); HEMATOCRIT 34.8 % (36.0-47.0); HEMOGLOBIN 11.7 g/dL (12.0-15.5); HGB HCT DIFFERENCE 0.3; LYMPHOCYTES % (AUTO) 10.5 % (13-45); MEAN CORPUSCULAR HEMOGLOBIN 29.1 pg (27.0-33.4); MEAN CORPUSCULAR HGB CONC 33.8 g/dL (32.0-36.0); MEAN CORPUSCULAR VOLUME 86 fl (80-97); MONOCYTES % (AUTO) 8.4 % (3-13); RED BLOOD COUNT 4.04 10^6/uL (3.72-5.28); RED CELL DISTRIBUTION WIDTH 14.2 % (11.5-14.0); WHITE BLOOD COUNT 8.7 10^3/uL (4.0-10.5)
[2017-01-12 08:30] LABS: ALANINE AMINOTRANSFERASE 227 U/L (9-52); ALKALINE PHOSPHATASE 146 U/L (38-126); ANION GAP 9 (5-19); ASPARTATE AMINO TRANSFERASE 243 U/L (14-36); BILIRUBIN,DIRECT 1.9 mg/dL (0.0-0.4); BILIRUBIN,TOTAL 2.6 mg/dL (0.2-1.3); BLOOD UREA NITROGEN 7 mg/dL (7-20); CALCIUM 8.5 mg/dL (8.4-10.2); CARBON DIOXIDE 20 mmol/L (22-30); CHLORIDE 112 mmol/L (98-107); CREATININE RESULT 0.74 mg/dL (0.52-1.25); GLUCOSE 109 mg/dL (75-110); MAGNESIUM 1.5 mg/dL (1.6-2.3); POTASSIUM 3.6 mmol/L (3.6-5.0); SODIUM 140.6 mmol/L (137-145); TOTAL PROTEIN 6.1 g/dL (6.3-8.2)
[2017-01-12] MEDS: CHOLECALCIFEROL (D3) 1,000 UNIT TABLET PO SCH (11:21)
[2017-01-12] MEDS: LISINOPRIL 10 MG TABLET PO SCH (11:23)
[2017-01-12] MEDS: MAGNESIUM SULFATE/D5W 100 ML IV SCH ×2 (11:23→12:34)
[2017-01-12] MEDS ORDERED: POTASSIUM PHOS,M-BASIC-D-BASIC 60 MMOL in NORMAL SALINE 1000 ML 1,000 ML IV ONE (12:00)
[2017-01-12] MEDS: ACETAMINOPHEN 325 MG TABLET PO PRN (12:09)
[2017-01-12] MEDS ORDERED: PROMETHAZINE HCL 25 MG TABLET PO PRN (13:49)
[2017-01-12] MEDS: IBUPROFEN 600 MG TABLET PO PRN (14:09)
[2017-01-12] MEDS ORDERED: PROMETHAZINE HCL 25 MG TABLET PO ONE (14:15)
--- NOTE | 2017-01-12 14:23 | PDOC PROGRESS REPORT ---
Subjective Progress Note for:: 01/12/17 Subjective:: Patient continues to have diarrhea and nausea. She reports this is nonbloody. She reports she is feeling better until this afternoon when she spiked a fever today of 102.8 Degrees Fahrenheit. Patient denies chest pain, shortness of breath, vomiting, constipation, headache , new onset weakness. Patient reports that overall the symptoms have been going on for years with the exception of the fever. Physical Exam Vital Signs: Temp Pulse Resp BP Pulse Ox 98.8 F 77 15 109/53 L 96 01/12/17 03:41 01/12/17 03:41 01/12/17 03:41 01/12/17 03:41 01/12/17 03:41 Intake & Output 01/11/17 01/12/17 01/13/17 06:59 06:59 06:59 Intake Total 5395 3450 Output Total 1600 2550 Balance 3795 900 Weight 104.1 kg 104 kg Exam: General: Awake alert and oriented x3, no acute respiratory distress HEENT: AT/NC, PERRL, EOMI, oropharynx is moist, pink, no scleral icterus, no conjunctival injection Neck: No JVD, trachea midline Chest: Clear to auscultation bilaterally, no wheezes rhonchi or rales CV: Regular rate and rhythm, normal S1 and S2, no murmur, rub, or gallop Abdomen: Soft, tender to palpation midepigastric region, nondistended, active bowel sounds; no rebound, rigidity, or guarding, negative Aguilar sign Extremities: No cyanosis, clubbing or edema Neuro: Cranial nerves II through XII are grossly intact without focal deficits; awake alert and oriented x3 Psych: Normal mood and affect Results Laboratory Results: 01/12/17 04:29 01/10/17 04:53 01/11/17 01/12/17 10:26 04:29 WBC 7.0 RBC 4.07 Hgb 11.9 L Hct 35.4 L MCV 87 MCH 29.3 MCHC 33.7 RDW 13.9 Plt Count 184 Seg Neutrophils % 68.8 Lymphocytes % 12.8 L Monocytes % 12.5 Eosinophils % 5.6 Basophils % 0.3 Absolute Neutrophils 4.9 Absolute Lymphocytes 0.9 Absolute Monocytes 0.9 Absolute Eosinophils 0.4 Absolute Basophils 0.0 Urine Color YELLOW Urine Appearance CLEAR Urine pH 5.0 Ur Specific Kinsley 1.012 Urine Protein NEGATIVE Urine Glucose (UA) NEGATIVE Urine Ketones NEGATIVE Urine Blood SMALL H Urine Nitrite NEGATIVE Ur Leukocyte Esterase NEGATIVE Urine WBC (Auto) 1 Urine RBC (Auto) 1 01/09/17 22:00 Stool - Stool - Final 01/09/17 22:00 Stool - Stool Stool Culture - Final NO SALMONELLA, SHIGELLA, CAMPYLOBACTER, OR E.COLI 0157 RECOVERED. NEGATIVE FOR SHIGA TOXINS 1&2. Impressions: Abdomen/Pelvis CT 01/09/17 15:50 IMPRESSION: The previously described mild haziness within the mesenteric in the lower quadrants appears less pronounced on the current study. There are multiple prominent mesenteric lymph nodes and periaortic lymph nodes as noted above. These are more pronounced than on the previous study. The possibility of a mesenteric adenitis or other inflammatory process should be considered. The possibility of an infiltrative process including a lymphoma should be considered. Other findings as noted above. Abdomen Ultrasound 01/10/17 00:00 IMPRESSION: NORMAL RIGHT UPPER QUADRANT ULTRASOUND. Abdomen/Pelvis CTA 01/10/17 00:00 IMPRESSION: NO ABDOMINAL AORTIC ANEURYSM, DISSECTION OR SIGNIFICANT STENOSIS. NO SIGNIFICANT FINDINGS IN THE ABDOMEN. AGAIN NOTED ARE PROMINENT MESENTERIC AND RETROPERITONEAL LYMPH NODES WHICH ARE NONSPECIFIC AND MAY BE RELATED TO ADENITIS HOWEVER CAN ALSO BE SEEN WITH LYMPHOMA. CORRELATE WITH LABORATORY DATA AND FOLLOW-UP IMAGING IN 3 TO 6 MONTHS TO ENSURE STABILITY. Assessment & Plan - Diagnosis (1) Sepsis Qualifiers: Sepsis type: sepsis due to unspecified organism Qualified Code(s): A41.9 - Sepsis, unspecified organism Is this a current diagnosis for this admission?: YesPlan: Patient with sepsis likely present on admission, secondary to infectious diarrhea vs gallbladder disease. Pending cultures Advance from flagyl and cipro to Zosyn. (2) Elevated lipase Is this a current diagnosis for this admission?: YesPlan: Suspect that this is likely secondary to peptic ulcer disease. Patient reports no worsening of her midepigastric pain with eating. (3) Diarrhea Qualifiers: Diarrhea type: presumed infectious Qualified Code(s): A09 - Infectious gastroenteritis and colitis, unspecified Is this a current diagnosis for this admission?: YesPlan: At this time, presuming diarrhea is infectious in nature which would coincide with her mesenteric adenopathy. Advance from Cipro/flagyl to Zosyn in light of on-going fever on these medications. Have sent blood for CMV, EBV, HIV, inflammatory bowel panel, celiac panel, hepatitis. Consider sending procalcitonin. On pro-biotic. Could also be related to medication including Trulicity. Other differential includes: IBS, Other medications, Inflammatory condition, food allergies, Collagenous colitis, lymphocytic colitis, malabsorbption, bacterial overgrowth, celiac. (4) Hypotension Qualifiers: Hypotension type: orthostatic hypotension Qualified Code(s): I95.1 - Orthostatic hypotension Is this a current diagnosis for this admission?: YesPlan: Improved secondary to volume depletion. Patient continues to require IV fluids at 200 mL/h (5) Depression Qualifiers: Depression Type: unspecified Qualified Code(s): F32.9 - Major depressive disorder, single episode, unspecified Is this a current diagnosis for this admission?: Yes (6) Diabetes mellitus type II, controlled Qualifiers: Diabetes mellitus complication status: with unspecified complications Diabetes mellitus termite helper insulin use: without shelter use Qualified Code(s): E11.8 - Type 2 diabetes mellitus with unspecified complications; Z79.4 - long term care phlebotomist (current) use of insulin Is this a current diagnosis for this admission?: Yes (7) Severe obesity (BMI 35.0-39.9) with comorbidity Is this a current diagnosis for this admission?: Yes (8) DVT prophylaxis Is this a current diagnosis for this admission?: Yes (9) Abdominal lymphadenopathy Is this a current diagnosis for this admission?: YesPlan: Have discussed the results of her CT of the abdomen with her. She does understand that she requires a repeat CT of the abdomen in 3-6 months to document resolution of her mesenteric adenopathy. Suspect that this is likely secondary to underlying infectious process such as Yersinia or viral process. However, cannot rule out lymphoma at this time. - Time Time Spent with patient: 25-34 minutes Medications reviewed and adjusted accordingly: Yes - Inpatient Certification Based on my medical assessment, after consideration of the patient's comorbidities, presenting symptoms, or acuity I expect that the services needed warrant INPATIENT care.: Yes I certify that my determination is in accordance with my understanding of Medicare's requirements for reasonable and necessary INPATIENT services [42 CFR 412.3e].: Yes Medical Necessity: Need For IV Fluids, Need for IV Antibiotics, Risk of Diagnosis Which Will Require Inpatient Eval/Care/Monitoring Post Hospital Care: D/C High Frequency Mill Operator Documentation
[2017-01-12 15:34] LABS: ADD HIVPANEL? NO; HIV (1 AND 2) ANTIBODY NEGATIVE (NEGATIVE)
[2017-01-12] MEDS: PIPERACILLIN SODIUM/TAZOBACTAM 4.5 GM in NORMAL SALINE 100 ML IV SCH ×2 (16:12→21:13)
[2017-01-12] MEDS: CITALOPRAM HYDROBROMIDE 20 MG TABLET PO SCH (21:16)
[2017-01-13] MEDS: NORMAL SALINE 1000 ML 1,000 ML IV PRN ×2 (00:35→19:19)
[2017-01-13] MEDS: PIPERACILLIN SODIUM/TAZOBACTAM 4.5 GM in NORMAL SALINE 100 ML IV SCH ×4 (03:31→20:27)
[2017-01-13 03:38] LABS: ABSOLUTE EOSINOPHILS # (AUTO) 0.6 10^3/uL (0.0-0.6); ABSOLUTE NEUT (AUTO) 6.6 10^3/uL (1.7-8.2); BASOPHILS % (AUTO) 0.3 % (0-2); EOSINOPHILS % (AUTO) 6.2 % (0-6); HEMATOCRIT 34.8 % (36.0-47.0); HEMOGLOBIN 11.5 g/dL (12.0-15.5); HGB HCT DIFFERENCE -0.3; LYMPHOCYTES % (AUTO) 10.4 % (13-45); MEAN CORPUSCULAR HEMOGLOBIN 28.9 pg (27.0-33.4); MEAN CORPUSCULAR VOLUME 88 fl (80-97); MONOCYTES % (AUTO) 11.1 % (3-13); RED BLOOD COUNT 3.97 10^6/uL (3.72-5.28); RED CELL DISTRIBUTION WIDTH 14.5 % (11.5-14.0); WHITE BLOOD COUNT 9.2 10^3/uL (4.0-10.5)
[2017-01-13] MEDS: ONDANSETRON HCL INJ/PF 4 MG/2 ML SDV IV PRN ×3 (03:45→18:56)
[2017-01-13 03:48] LABS: ALANINE AMINOTRANSFERASE 245 U/L (9-52); ALBUMIN 2.9 g/dL (3.5-5.0); ALKALINE PHOSPHATASE 179 U/L (38-126); ANION GAP 8 (5-19); ASPARTATE AMINO TRANSFERASE 242 U/L (14-36); BILIRUBIN,DIRECT 1.9 mg/dL (0.0-0.4); BILIRUBIN,TOTAL 2.5 mg/dL (0.2-1.3); BLOOD UREA NITROGEN 5 mg/dL (7-20); CALCIUM 8.5 mg/dL (8.4-10.2); CARBON DIOXIDE 22 mmol/L (22-30); CHLORIDE 112 mmol/L (98-107); CREATININE RESULT 0.76 mg/dL (0.52-1.25); GLUCOSE 90 mg/dL (75-110); MAGNESIUM 1.9 mg/dL (1.6-2.3); PHOSPHORUS 3.5 mg/dL (2.5-4.5); POTASSIUM 3.9 mmol/L (3.6-5.0); SODIUM 142.3 mmol/L (137-145); TOTAL PROTEIN 5.9 g/dL (6.3-8.2)
[2017-01-13] MEDS: HEPARIN SOD (PORCINE) 5,000 UNIT/ML 1 ML SYRINGE SUBCUT SCH ×3 (05:29→21:04)
[2017-01-13] MEDS ORDERED: HALOPERIDOL LACTATE INJ 5 MG/1 ML VIAL IV ONE (08:18)
[2017-01-13] MEDS ORDERED: MAG HYDROX/AL HYDROX/SIMETH SUSP 30 ML UDCUP PO PRN (08:24)
[2017-01-13] MEDS ORDERED: MORPHINE SULFATE 10 MG/ML INJ IV PRN (08:26)
--- NOTE | 2017-01-13 11:49 | RADIOLOGY REPORT (SQ) ---
EXAM DESCRIPTION: NM HIDA SCAN WITH CCK COMPLETED DATE/TIME: 01/13/2017 11:29 am REASON FOR STUDY: elevated LFT, abd pain COMPARISON: Abdominal CT scan an abdominal ultrasound dated 01/10/2017 RADIONUCLIDE AND DOSE: DOSAGE RADIONUCLIDE: 5.28 millicuries Tc99m Mebrofenin. The route of agent administration: Intravenous TECHNIQUE: Serial imaging right upper quadrant up to 60 minutes following injection of radionuclide. Patient imaged AP and Right Lateral. LIMITATIONS: None. FINDINGS: LIVER: Normal visualization without areas of photopenia. INTRA-HEPATIC BILE DUCTS: There is non visualization of the intrahepatic bile ducts COMMON BILE DUCT: There is non visualization of the common bile duct GALLBLADDER: There is non visualization of the gallbladder. OTHER: Additional images were obtained with a 2.5 hour delay demonstrating no activity in the bile du cts or gallbladder. IMPRESSION: There is persistent hepatic activity without visualization of activity in the bile ducts or gallbladder. The appearance is most consistent with diffuse hepatocellular disease as no dilated bile ducts were identified on the abdominal CT scan or abdominal ultrasound. Clinical correlation i s recommended TECHNICAL DOCUMENTATION: JOB ID: [id number] All Rights Reserved
[2017-01-13] MEDS: CHOLECALCIFEROL (D3) 1,000 UNIT TABLET PO SCH (13:07)
[2017-01-13] MEDS: LISINOPRIL 10 MG TABLET PO SCH (13:08)
--- NOTE | 2017-01-13 13:14 | RADIOLOGY REPORT (SQ) ---
EXAM DESCRIPTION: MRI ABDOMEN COMBO COMPLETED DATE/TIME: 01/13/2017 12:45 pm REASON FOR STUDY: elevated lft, chronic diarrhea, ?psc COMPARISON: None. TECHNIQUE: Multiplanar multisequence imaging performed without and with contrast including sagittal, axial and coronal T2, axial T1, axial gradient fat sat T1, axial, sagittal and coronal fat sat T1 po st contrast. CONTRAST TYPE AND DOSE: 20 mL Prohance. RENAL FUNCTION: GFR > 60. LIMITATIONS: Patient motion in the scanner. Patient positioning of her hands. FINDINGS: LIVER: Normal size. No masses. No dilated ducts. CBD normal. SPLEEN: Normal size. No focal lesions. PANCREAS: No masses. No adjacent inflammation or peripancreatic fluid collections. Pancreatic duct no t dilated. GALLBLADDER: Small amount of pericholecystic fluid. ADRENAL GLANDS: No significant masses or asymmetry. RIGHT KIDNEY AND URETER: No masses. No hydronephrosis. LEFT KIDNEY AND URETER: No masses. No hydronephrosis. AORTA AND VESSELS: No aneurysm. RETROPERITONEUM: Small retroperitoneal nodes, unchanged from recent CT. BOWEL: No visualized masses. No inflammation. No significant dilatation. ABDOMINAL WALL AND PERITONEUM: No hernias. No free fluid. BONES: No acute or significant findings. OTHER: No other significant finding. IMPRESSION: Technical limitations due to patient motion and positioning. 1. Small amount of pericholecystic fluid, nonspecific. 2. No evidence of liver mass. 3. Retroperitoneal adenopathy. TECHNICAL DOCUMENTATION: JOB ID: [id number] [email or web address] All Rights Reserved
[2017-01-13] MEDS ORDERED: POLYETHYLENE GLYCOL 3350 POWDER 17 GM/1 PACKET PO PRN ×2 (13:39→14:14)
--- NOTE | 2017-01-13 14:05 | PDOC PROGRESS REPORT ---
Subjective Progress Note for:: 01/13/17 Subjective:: Patient continues to have diarrhea and nausea. She reports this is nonbloody. Patient reports the diarrhea has slowed down slightly. Patient has had no further fevers. Patient denies chest pain, shortness of breath, vomiting, constipation, headache , new onset weakness. Physical Exam Vital Signs: Temp Pulse Resp BP Pulse Ox 98.9 F 74 18 126/61 H 97 01/13/17 08:00 01/13/17 08:00 01/13/17 08:00 01/13/17 08:00 01/13/17 08:00 Intake & Output 01/12/17 01/13/17 01/14/17 06:59 06:59 06:59 Intake Total 5566 3192 Output Total 2550 1100 Balance 3016 2092 Weight 104 kg 107.5 kg Exam: General: Awake alert and oriented x3, no acute respiratory distress HEENT: AT/NC, PERRL, EOMI, oropharynx is moist, pink, no scleral icterus, no conjunctival injection Neck: No JVD, trachea midline Chest: Clear to auscultation bilaterally, no wheezes rhonchi or rales CV: Regular rate and rhythm, normal S1 and S2, no murmur, rub, or gallop Abdomen: Soft, mild tender to palpation midepigastric region and RUQ, nondistended, active bowel sounds; no rebound, rigidity, or guarding, slightly positive Aguilar sign Extremities: No cyanosis, clubbing or edema Neuro: Cranial nerves II through XII are grossly intact without focal deficits; awake alert and oriented x3 Psych: Normal mood and affect Results Laboratory Results: 01/13/17 03:25 01/13/17 03:25 01/12/17 01/13/17 01/13/17 14:22 03:25 03:25 WBC 9.2 RBC 3.97 Hgb 11.5 L Hct 34.8 L MCV 88 MCH 28.9 MCHC 33.0 RDW 14.5 H Plt Count 166 Seg Neutrophils % 72.0 Lymphocytes % 10.4 L Monocytes % 11.1 Eosinophils % 6.2 H Basophils % 0.3 Absolute Neutrophils 6.6 Absolute Lymphocytes 1.0 Absolute Monocytes 1.0 Absolute Eosinophils 0.6 Absolute Basophils 0.0 Sodium 142.3 Potassium 3.9 Chloride 112 H Carbon Dioxide 22 Anion Gap 8 BUN 5 L Creatinine 0.76 Est GFR ( Amer) > 60 Est GFR (Non-Af Amer) > 60 Glucose 90 Calcium 8.5 Phosphorus 3.5 Magnesium 1.9 Total Bilirubin 2.5 H AST 242 H ALT 245 H Alkaline Phosphatase 179 H Total Protein 5.9 L Albumin 2.9 L Lipase 196.3 01/11/17 10:26 Clean Catch Midstream Urine Culture - Final Mixed Urogenital Nimisha Impressions: Abdomen/Pelvis CT 01/09/17 15:50 IMPRESSION: The previously described mild haziness within the mesenteric in the lower quadrants appears less pronounced on the current study. There are multiple prominent mesenteric lymph nodes and periaortic lymph nodes as noted above. These are more pronounced than on the previous study. The possibility of a mesenteric adenitis or other inflammatory process should be considered. The possibility of an infiltrative process including a lymphoma should be considered. Other findings as noted above. Abdomen Ultrasound 01/10/17 00:00 IMPRESSION: NORMAL RIGHT UPPER QUADRANT ULTRASOUND. Abdomen/Pelvis CTA 01/10/17 00:00 IMPRESSION: NO ABDOMINAL AORTIC ANEURYSM, DISSECTION OR SIGNIFICANT STENOSIS. NO SIGNIFICANT FINDINGS IN THE ABDOMEN. AGAIN NOTED ARE PROMINENT MESENTERIC AND RETROPERITONEAL LYMPH NODES WHICH ARE NONSPECIFIC AND MAY BE RELATED TO ADENITIS HOWEVER CAN ALSO BE SEEN WITH LYMPHOMA. CORRELATE WITH LABORATORY DATA AND FOLLOW-UP IMAGING IN 3 TO 6 MONTHS TO ENSURE STABILITY. Hepatobiliary Scan Nuclear Medicine 01/12/17 00:00 IMPRESSION: There is persistent hepatic activity without visualization of activity in the bile ducts or gallbladder. The appearance is most consistent with diffuse hepatocellular disease as no dilated bile ducts were identified on the abdominal CT scan or abdominal ultrasound. Clinical correlation is recommended Abdomen MRI 01/13/17 00:00 IMPRESSION: Technical limitations due to patient motion and positioning. 1. Small amount of pericholecystic fluid, nonspecific. 2. No evidence of liver mass. 3. Retroperitoneal adenopathy. Assessment & Plan - Diagnosis (1) Sepsis Qualifiers: Sepsis type: sepsis due to unspecified organism Qualified Code(s): A41.9 - Sepsis, unspecified organism Is this a current diagnosis for this admission?: YesPlan: Patient with sepsis likely present on admission, secondary to infectious diarrhea vs gallbladder disease. Pending cultures On Zosyn day #2 Have obtained HIDA and MRCP (2) Diarrhea Qualifiers: Diarrhea type: presumed infectious Qualified Code(s): A09 - Infectious gastroenteritis and colitis, unspecified Is this a current diagnosis for this admission?: YesPlan: At this time, presuming diarrhea is infectious in nature which would coincide with her mesenteric adenopathy. On Zosyn in light of fever. Have sent blood for CMV, EBV, HIV, inflammatory bowel panel, celiac panel, hepatitis. Consider sending procalcitonin. On pro-biotic. Could also be related to medication including Trulicity. Other differential includes: IBS, Other medications, Inflammatory condition, food allergies, Collagenous colitis, lymphocytic colitis, malabsorbption, bacterial overgrowth, celiac. (3) Hypotension Qualifiers: Hypotension type: orthostatic hypotension Qualified Code(s): I95.1 - Orthostatic hypotension Is this a current diagnosis for this admission?: YesPlan: Improved secondary to volume depletion. Patient continues to require IV fluids at 200 mL/h (4) Depression Qualifiers: Depression Type: unspecified Qualified Code(s): F32.9 - Major depressive disorder, single episode, unspecified Is this a current diagnosis for this admission?: YesPlan: Continue celexa (5) Diabetes mellitus type II, controlled Qualifiers: Diabetes mellitus complication status: with unspecified complications Diabetes mellitus termite treater insulin use: without m[facility]p use Qualified Code(s): E11.8 - Type 2 diabetes mellitus with unspecified complications; Z79.4 - oysterman (current) use of insulin Is this a current diagnosis for this admission?: YesPlan: Reports last hgba1c 5.9 Hold trulicity as it commonly causes nausea, vomiting, diarrhea, abdominal pain , and rarely pancreatitis (6) Severe obesity (BMI 35.0-39.9) with comorbidity Is this a current diagnosis for this admission?: Yes (7) DVT prophylaxis Is this a current diagnosis for this admission?: Yes (8) Abdominal lymphadenopathy Is this a current diagnosis for this admission?: YesPlan: Have discussed the results of her CT of the abdomen with her. She does understand that she requires a repeat CT of the abdomen in 3-6 months to document resolution of her mesenteric adenopathy. Suspect that this is likely secondary to underlying infectious process such as Yersinia or viral process. However, cannot rule out lymphoma at this time. - Time Time Spent with patient: 35 or more minutes - Total time spent with patient including patient education, physical examination, discussion with consultants, coordination of care and formulation of plan was 45minutes.
--- NOTE | 2017-01-13 14:14 | PDOC CONSULTATION ---
Consultation Consult Date: 01/13/17 Attending physician:: ANNITA HICKEY Consult reason:: Persistent nausea vomiting. Weight loss. Change in bowel habits with diarrhea History of Present Illness Admission Date/PCP: 01/09/17 18:08 ISABEL FLORES MD History of Present Illness: I am asked to see this patient by Dr. Nava. Patient has had multiple hospitalizations for similar problems. She is admitted for hypotension and possible renal failure. The latter has resolved. She does have abnormal LFTs. MRI was done no dilated ducts were noted Hepatobiliary scan was done also. Patient states his early satiety, nausea vomiting whenever she eats. She has been trying to lose weight She states that she is woken up at night with diarrhea and has multiple bowel movements every day No blood is seen Had a colonoscopy more than 5 years ago and was noted to have a polyp No follow-up since then GI consultation is requested We will need to rule out possible peptic ulcer disease, will also need to rule out collagenous colitis. Patient denies any melena She denies any dysphagia odynophagia Imaging studies are reviewed Past Medical History Cardiac Medical History: Reports: Hyperlipidema, Hypertension Denies: Myocardial Infarction Pulmonary Medical History: Denies: Asthma Neurological Medical History: Denies: Seizures Endocrine Medical History: Reports: Diabetes Mellitus Type 2 - On Trulicity injection once a week. Says that she has lost 80 pounds. Renal/ Medical History: Reports: Chronic Kidney Disease, End Stage Renal Disease - CKD III GI Medical History: Reports: Gastroesophageal Reflux Disease Denies: Diverticulitis, Hepatitis, Hiatal Hernia Psychiatric Medical History: Reports: Depression Hematology: Denies: Anemia, Sickle Cell Disease Past Surgical History Past Surgical History: Reports: Tonsillectomy Denies: Amputation, Hysterectomy, Mastectomy, Pacemaker Social History Smoking Status: Never Smoker Frequency of Alcohol Use: None Hx Recreational Drug Use: No Drugs: None Hx Prescription Drug Abuse: No - Advance Directive Resuscitation Status: Full Code Family History Family History: Reviewed & Not Pertinent Parental Family History Reviewed: Yes Children Family History Reviewed: Unknown Sibling(s) Family History Reviewed.: Unknown Medication/Allergy Home Medications: Cholecalciferol (Vitamin D3) [Vitamin D3 5000 unit Capsule] 5,000 units PO DAILY 01/09/17 Citalopram Hydrobromide [Celexa 40 mg Tablet] 40 mg PO QHS 01/09/17 Dulaglutide [Trulicity] 1.5 mg SQ SILVA@1000 01/09/17 Lisinopril [Zestril] 20 mg PO DAILY 01/09/17 Multivitamin [Daily Multiple Vitamin] 1 tab PO DAILY 01/09/17 Rosuvastatin Calcium [Crestor 10 mg Tablet] 10 mg PO DAILY 01/09/17 Sulindac 150 mg PO DAILY 01/09/17 Allergies/Adverse Reactions: No Known Allergies Allergy (Verified 01/09/17 14:43) Review of Systems Constitutional: ABSENT: fever(s), headache(s), night sweats, weakness Eyes: ABSENT: visual disturbances Ears: ABSENT: hearing changes Nose, Mouth, and Throat: ABSENT: mouth pain, sore throat Cardiovascular: ABSENT: chest pain, edema, orthropnea, palpitations Respiratory: ABSENT: dyspnea, hemoptysis Gastrointestinal: PRESENT: diarrhea, nausea, vomiting. ABSENT: dysphagia, hematemesis, hematochezia Genitourinary: ABSENT: dysuria, hematuria Musculoskeletal: ABSENT: deformity, joint swelling Integumentary: ABSENT: lesions, pruritus Neurological: ABSENT: syncope, tingling, tremor(s), vertigo Endocrine: ABSENT: polydipsia, polyphagia, polyuria Hematologic/Lymphatic: ABSENT: easy bruising, lymphadenopathy Physical Exam Vital Signs: Temp Pulse Resp BP Pulse Ox 98.9 F 74 18 126/61 H 97 01/13/17 08:00 01/13/17 08:00 01/13/17 08:00 01/13/17 08:00 01/13/17 08:00 Intake & Output 01/12/17 01/13/17 01/14/17 06:59 06:59 06:59 Intake Total 5514 3192 Output Total 2550 1100 Balance 3016 2092 Weight 104 kg 107.5 kg General appearance: PRESENT: no acute distress, cooperative, well-developed. ABSENT: mild distress Head exam: PRESENT: atraumatic, normocephalic Eye exam: PRESENT: EOMI, PERRLA. ABSENT: nystagmus, periorbital swelling, scleral icterus Mouth exam: PRESENT: moist. ABSENT: neck supple Throat exam: ABSENT: tonsillar exudate, tonsillogmegaly Neck exam: ABSENT: meningismus, tenderness, thyromegaly Respiratory exam: PRESENT: symmetrical, unlabored. ABSENT: tachypnea, wheezes Cardiovascular exam: PRESENT: RRR, +S1, +S2 Pulses: PRESENT: normal carotid pulses GI/Abdominal exam: PRESENT: soft. ABSENT: Aguilar's sign, rebound, rigid, tenderness Extremities exam: ABSENT: joint swelling Musculoskeletal exam: PRESENT: full ROM Neurological exam: PRESENT: oriented to time, oriented to situation, reflexes normal, CN II-XII grossly intact Skin exam: PRESENT: normal color. ABSENT: mottled, pallor, petechiae, urticaria , vesicles Results Laboratory Results: 01/13/17 03:25 01/13/17 03:25 01/12/17 01/13/17 01/13/17 14:22 03:25 03:25 WBC 9.2 RBC 3.97 Hgb 11.5 L Hct 34.8 L MCV 88 MCH 28.9 MCHC 33.0 RDW 14.5 H Plt Count 166 Seg Neutrophils % 72.0 Lymphocytes % 10.4 L Monocytes % 11.1 Eosinophils % 6.2 H Basophils % 0.3 Absolute Neutrophils 6.6 Absolute Lymphocytes 1.0 Absolute Monocytes 1.0 Absolute Eosinophils 0.6 Absolute Basophils 0.0 Sodium 142.3 Potassium 3.9 Chloride 112 H Carbon Dioxide 22 Anion Gap 8 BUN 5 L Creatinine 0.76 Est GFR ( Amer) > 60 Est GFR (Non-Af Amer) > 60 Glucose 90 Calcium 8.5 Phosphorus 3.5 Magnesium 1.9 Total Bilirubin 2.5 H AST 242 H ALT 245 H Alkaline Phosphatase 179 H Total Protein 5.9 L Albumin 2.9 L Lipase 196.3 01/11/17 10:26 Clean Catch Midstream Urine Culture - Final Mixed Urogenital Nimisha Impressions: Abdomen/Pelvis CT 01/09/17 15:50 IMPRESSION: The previously described mild haziness within the mesenteric in the lower quadrants appears less pronounced on the current study. There are multiple prominent mesenteric lymph nodes and periaortic lymph nodes as noted above. These are more pronounced than on the previous study. The possibility of a mesenteric adenitis or other inflammatory process should be considered. The possibility of an infiltrative process including a lymphoma should be considered. Other findings as noted above. Abdomen Ultrasound 01/10/17 00:00 IMPRESSION: NORMAL RIGHT UPPER QUADRANT ULTRASOUND. Abdomen/Pelvis CTA 01/10/17 00:00 IMPRESSION: NO ABDOMINAL AORTIC ANEURYSM, DISSECTION OR SIGNIFICANT STENOSIS. NO SIGNIFICANT FINDINGS IN THE ABDOMEN. AGAIN NOTED ARE PROMINENT MESENTERIC AND RETROPERITONEAL LYMPH NODES WHICH ARE NONSPECIFIC AND MAY BE RELATED TO ADENITIS HOWEVER CAN ALSO BE SEEN WITH LYMPHOMA. CORRELATE WITH LABORATORY DATA AND FOLLOW-UP IMAGING IN 3 TO 6 MONTHS TO ENSURE STABILITY. Hepatobiliary Scan Nuclear Medicine 01/12/17 00:00 IMPRESSION: There is persistent hepatic activity without visualization of activity in the bile ducts or gallbladder. The appearance is most consistent with diffuse hepatocellular disease as no dilated bile ducts were identified on the abdominal CT scan or abdominal ultrasound. Clinical correlation is recommended Abdomen MRI 01/13/17 00:00 IMPRESSION: Technical limitations due to patient motion and positioning. 1. Small amount of pericholecystic fluid, nonspecific. 2. No evidence of liver mass. 3. Retroperitoneal adenopathy. Assessment & Plan - Diagnosis (1) Abnormal LFTs Plan: Imaging studies are noted. MRI has been done along with HIDA scan. Does not appear to have acute cholecystitis, or retained stone. Could be due to nonalcoholic fatty liver disease. (2) Retroperitoneal lymphadenopathy Plan: Continue to follow. This was noted on imaging studies. (3) Diarrhea Qualifiers: Diarrhea type: presumed infectious Qualified Code(s): A09 - Infectious gastroenteritis and colitis, unspecified Is this a current diagnosis for this admission?: YesPlan: Change of bowel habits, will need colonoscopy, rule out lymphocytic, microscopic , collagenous colitis. Question IBS. The risks benefits alternatives of the procedure including risks of bleeding, perforation requiring surgery are explained to the patient detail and informed consent is obtained. Further recommendations to follow. (4) Nausea & vomiting Qualifiers: Vomiting type: unspecified Vomiting Intractability: unspecified Qualified Code(s): R11.2 - Nausea with vomiting, unspecified Plan: Will need upper endoscopy as well. Rule out peptic ulcer disease. Rule out Helicobacter pylori. (5) Colon polyp Plan: We will need surveillance colonoscopy. - Time Time Spent: 50 to 70 Minutes
[2017-01-13] MEDS: PROMETHAZINE HCL 25 MG TABLET PO PRN (18:22)
[2017-01-14] MEDS: NORMAL SALINE 1000 ML 1,000 ML IV PRN ×3 (00:45→18:12)
[2017-01-14] MEDS: PIPERACILLIN SODIUM/TAZOBACTAM 4.5 GM in NORMAL SALINE 100 ML IV SCH (02:09)
[2017-01-14] MEDS: HEPARIN SOD (PORCINE) 5,000 UNIT/ML 1 ML SYRINGE SUBCUT SCH ×3 (04:27→21:13)
--- NOTE | 2017-01-14 10:46 | PDOC PROGRESS REPORT ---
Subjective Progress Note for:: 01/14/17 Subjective:: Patient states she has continued nausea and had an episode of vomiting last night. She has continued epigastric pain. She states this has been going on for about 1 year intermittently. She takes frequent NSAIDs for muscular skeletal pain associated with her employment. She also states that she has chronic loose stools. She denies fever, chills, chest pain, shortness of breath. Physical Exam Vital Signs: Temp Pulse Resp BP Pulse Ox 99.1 F 65 17 135/65 H 96 01/14/17 08:00 01/14/17 08:00 01/14/17 08:00 01/14/17 08:00 01/14/17 08:00 Intake & Output 01/13/17 01/14/17 01/15/17 06:59 06:59 06:59 Intake Total 3192 2400 Output Total 1100 600 Balance 2092 1800 Weight 107.5 kg 107 kg GENERAL: No acute distress HEENT: Conjunctiva clear, nonicteric, moist mucous membranes, no JVD, midline trachea RESPIRATORY: Clear to auscultation bilaterally, no wheezes, no rhonchi CARDIAC: Regular rate and rhythm, no murmurs/gallops/rubs ABDOMEN: Soft, obese, mild epigastric tenderness, positive bowel sounds, no rebound, no guarding EXTREMETIES: No edema, cyanosis, clubbing NEUROLOGIC: Alert, oriented to person/place/time, CN's grossly intact, no focal deficits SKIN: No rash, wounds PSYCH: Normal mood, normal affect Results Laboratory Results: 01/13/17 03:25 01/13/17 03:25 01/11/17 19:00 Stool - Stool - Final 01/11/17 19:00 Stool - Stool Stool Culture - Final NO SALMONELLA, SHIGELLA, CAMPYLOBACTER, OR E.COLI 0157 RECOVERED. NEGATIVE FOR SHIGA TOXINS 1&2. 01/11/17 10:26 Clean Catch Midstream Urine Culture - Final Mixed Urogenital Jennie Impressions: Abdomen/Pelvis CT 01/09/17 15:50 IMPRESSION: The previously described mild haziness within the mesenteric in the lower quadrants appears less pronounced on the current study. There are multiple prominent mesenteric lymph nodes and periaortic lymph nodes as noted above. These are more pronounced than on the previous study. The possibility of a mesenteric adenitis or other inflammatory process should be considered. The possibility of an infiltrative process including a lymphoma should be considered. Other findings as noted above. Abdomen Ultrasound 01/10/17 00:00 IMPRESSION: NORMAL RIGHT UPPER QUADRANT ULTRASOUND. Abdomen/Pelvis CTA 01/10/17 00:00 IMPRESSION: NO ABDOMINAL AORTIC ANEURYSM, DISSECTION OR SIGNIFICANT STENOSIS. NO SIGNIFICANT FINDINGS IN THE ABDOMEN. AGAIN NOTED ARE PROMINENT MESENTERIC AND RETROPERITONEAL LYMPH NODES WHICH ARE NONSPECIFIC AND MAY BE RELATED TO ADENITIS HOWEVER CAN ALSO BE SEEN WITH LYMPHOMA. CORRELATE WITH LABORATORY DATA AND FOLLOW-UP IMAGING IN 3 TO 6 MONTHS TO ENSURE STABILITY. Hepatobiliary Scan Nuclear Medicine 01/12/17 00:00 IMPRESSION: There is persistent hepatic activity without visualization of activity in the bile ducts or gallbladder. The appearance is most consistent with diffuse hepatocellular disease as no dilated bile ducts were identified on the abdominal CT scan or abdominal ultrasound. Clinical correlation is recommended Abdomen MRI 01/13/17 00:00 IMPRESSION: Technical limitations due to patient motion and positioning. 1. Small amount of pericholecystic fluid, nonspecific. 2. No evidence of liver mass. 3. Retroperitoneal adenopathy. Assessment & Plan - Diagnosis (1) Sepsis Qualifiers: Sepsis type: sepsis due to unspecified organism Qualified Code(s): A41.9 - Sepsis, unspecified organism Is this a current diagnosis for this admission?: YesPlan: Patient now afebrile and blood pressure improved. Discontinue IV Zosyn secondary to association with elevated liver function test. Start IV Cipro and IV Flagyl for now. CT of abdomen and pelvis shows no acute intra-abdominal process. Blood cultures show no growth. Urine culture with mixed jennie. C. difficile negative. Stool cultures negative. (2) Epigastric pain Is this a current diagnosis for this admission?: YesPlan: Patient for EGD today. I have advised her to avoid NSAIDs in the future if these can be associated with gastritis and peptic ulcer disease. I will start patient on Protonix 40 mg IV every 12 hours. (3) Nausea & vomiting Qualifiers: Vomiting type: unspecified Vomiting Intractability: unspecified Qualified Code(s): R11.2 - Nausea with vomiting, unspecified Is this a current diagnosis for this admission?: YesPlan: GI following and planning EGD. Patient is also known diabetic and has chronic nausea, vomiting, diarrhea so we should consider gastric emptying study if other workup is negative in order to rule out gastroparesis. (4) Abnormal LFTs Is this a current diagnosis for this admission?: YesPlan: Per GI consultation this may be secondary to nonalcoholic steatohepatitis. Viral hepatitis panel is pending. HIDA scan without evidence of acute cholecystitis. MRI of abdomen without obstructive process or liver mass. (5) Diarrhea Qualifiers: Diarrhea type: presumed infectious Qualified Code(s): A09 - Infectious gastroenteritis and colitis, unspecified Is this a current diagnosis for this admission?: YesPlan: GI following and planning colonoscopy. C. difficile negative. Stool culture negative. Viral hepatitis panel pending. (6) Obesity (BMI 30-39.9) Is this a current diagnosis for this admission?: Yes (7) Abdominal lymphadenopathy Is this a current diagnosis for this admission?: YesPlan: Patient will need outpatient follow-up CT imaging in 3 months. (8) Renal insufficiency Is this a current diagnosis for this admission?: YesPlan: Much improved. Patient should avoid NSAIDs as mentioned above. We will continue lisinopril for now. (9) Diabetes mellitus type II, controlled Qualifiers: Diabetes mellitus complication status: with unspecified complications Diabetes mellitus machine long goods helper insulin use: without machine long goods helper use Qualified Code(s): E11.8 - Type 2 diabetes mellitus with unspecified complications; Z79.4 - superintendent container terminal (current) use of insulin Is this a current diagnosis for this admission?: YesPlan: Reports last [id number] 5.9. Hold trulicity as it commonly causes nausea, vomiting, diarrhea, abdominal pain, and rarely pancreatitis - Time Time Spent with patient: 35 or more minutes
[2017-01-14] MEDS: ONDANSETRON HCL INJ/PF 4 MG/2 ML SDV IV PRN ×2 (10:58→17:33)
[2017-01-14] MEDS ORDERED: PANTOPRAZOLE SODIUM 40 MG VIAL IV ONE (11:30)
[2017-01-14] MEDS ORDERED: ONDANSETRON HCL INJ/PF 4 MG/2 ML SDV ONE (11:44)
[2017-01-14] MEDS ORDERED: NALOXONE HCL INJ/PF 0.4 MG/1 ML SDV ONE (11:44)
[2017-01-14] MEDS ORDERED: DIPHENHYDRAMINE HCL 50 MG/ML VIAL ONE (11:44)
[2017-01-14] MEDS ORDERED: EPINEPHRINE INJ 1 MG/10 ML DISP.SYRIN ONE (11:45)
[2017-01-14] MEDS ORDERED: GLUCAGON,HUMAN RECOMB 1 MG INJ ONE (11:45)
[2017-01-14] MEDS ORDERED: FLUMAZENIL INJ 0.5 MG/5 ML VIAL IV ONE (11:45)
[2017-01-14] MEDS: MIDAZOLAM 2 MG/2 ML INJ ONE ×3 (12:58→13:13)
[2017-01-14] MEDS: FENTANYL CITRATE INJ/PF 100 MCG/2 ML AMPUL ONE ×2 (13:00→13:10)
--- NOTE | 2017-01-14 13:29 | Operative Report ---
Operative Report DATE OF SURGERY: 01/14/17 Operative Report: The risks, benefits and alternatives of the procedure including risks of bleeding, perforation requiring surgery are explained to the patient detail and informed consent is obtained. Patient was taken back to the endoscopy suite and placed in the left, lateral decubital position. Timeout was called. Conscious sedation medications are provided. A rectal examination was done which did not reveal any masses, tears or fissures. An Olympus videoscope was inserted into the patient's rectum. It was carefully guided all the way to the cecum. Intubation of the terminal ileum is done. The scope was then sequentially pulled back via the various segments of the colon including the ascending colon, hepatic flexure, transverse colon, splenic flexure, descending colon and finding to the rectosigmoid portions of the colon. Prep is good. Photodocumentation was obtained. Retroflexion maneuver was performed. The risks benefits and alternatives of the procedure explained to the patient in detail and informed consent is obtained. A GIF Olympus video scope was inserted into the patient's mouth and hypopharynx ,the esophagus is identified intubated and insufflated, the scope was then advanced through the esophagus stomach and duodenum, retroflexion maneuver is done, the esophagus stomach and first and second portions of the duodenum examined PREOPERATIVE DIAGNOSIS: Change of bowel habits. Nausea vomiting POSTOPERATIVE DIAGNOSIS: Mild right side inflammation status post biopsy. Normal terminal ileum. Normal colon mucosa. No evidence of diverticulosis, polyps. Internal hemorrhoids. Gastritis status post biopsy rule out Helicobacter pylori OPERATION: Colonoscopy with biopsy. EGD with biopsy SURGEON: ANNITA HICKEY ANESTHESIA: Moderate Sedation - 6 mg of Versed, 100 mcg of fentanyl. Conscious sedation monitoring time 30 minutes. TISSUE REMOVED OR ALTERED: As described above. COMPLICATIONS: None. ESTIMATED BLOOD LOSS: None. INTRAOPERATIVE FINDINGS: As described above. PROCEDURE: Patient tolerated procedure well. No immediate postprocedure complications are noted. Discharge diet: Regular. Discharge activity: Regular. 2-3 week follow-up to discuss findings. We will wait on biopsies. She is return to the floor in good condition.
[2017-01-14] MEDS: METRONIDAZOLE 500 MG/NS RTU 100 ML IV SCH ×3 (14:03→23:17)
[2017-01-14 14:59] LABS: EPSTEIN BARR EARLY AG IGG AB 82.7 U/mL (0.0-8.9)
[2017-01-14] MEDS: ACETAMINOPHEN 325 MG TABLET PO PRN (17:27)
[2017-01-14] MEDS: LISINOPRIL 10 MG TABLET PO SCH (17:28)
[2017-01-14] MEDS: CHOLECALCIFEROL (D3) 1,000 UNIT TABLET PO SCH (17:28)
[2017-01-14] MEDS ORDERED: ACETAMINOPHEN 650 MG SUPP.RECT PR PRN (18:01)
[2017-01-14] MEDS: PANTOPRAZOLE SODIUM 40 MG VIAL IV SCH (21:14)
[2017-01-14] MEDS: CIPROFLOXACIN 400 MG/D5W RTU 200 ML IV SCH (21:15)
[2017-01-15] MEDS: HEPARIN SOD (PORCINE) 5,000 UNIT/ML 1 ML SYRINGE SUBCUT SCH ×3 (02:42→21:18)
[2017-01-15] MEDS: ACETAMINOPHEN 325 MG TABLET PO PRN ×2 (02:51→17:14)
[2017-01-15] MEDS: ONDANSETRON HCL INJ/PF 4 MG/2 ML SDV IV PRN ×2 (02:52→13:30)
[2017-01-15] MEDS: PROMETHAZINE HCL 25 MG TABLET PO PRN (04:04)
[2017-01-15 04:56] LABS: ABSOLUTE BASOPHILS # (AUTO) 0.1 10^3/uL (0.0-0.2); ABSOLUTE EOSINOPHILS # (AUTO) 0.4 10^3/uL (0.0-0.6); ABSOLUTE LYMPHOCYTES (AUTO) 1.2 10^3/uL (0.5-4.7); ABSOLUTE MONOCYTES (AUTO) 1.5 10^3/uL (0.1-1.4); ABSOLUTE NEUT (AUTO) 9.9 10^3/uL (1.7-8.2); BASOPHILS % (AUTO) 0.4 % (0-2); EOSINOPHILS % (AUTO) 3.1 % (0-6); HEMATOCRIT 35.7 % (36.0-47.0); HGB HCT DIFFERENCE 0.3; LYMPHOCYTES % (AUTO) 9.2 % (13-45); MEAN CORPUSCULAR HEMOGLOBIN 29.1 pg (27.0-33.4); MEAN CORPUSCULAR HGB CONC 33.5 g/dL (32.0-36.0); MEAN CORPUSCULAR VOLUME 87 fl (80-97); MONOCYTES % (AUTO) 11.5 % (3-13); RED BLOOD COUNT 4.12 10^6/uL (3.72-5.28); RED CELL DISTRIBUTION WIDTH 14.3 % (11.5-14.0); SEGMENTED NEUTROPHILS % (AUTO) 75.8 % (42-78); WHITE BLOOD COUNT 13.1 10^3/uL (4.0-10.5)
[2017-01-15] MEDS: METRONIDAZOLE 500 MG/NS RTU 100 ML IV SCH ×2 (05:09→11:32)
[2017-01-15 05:21] LABS: ALANINE AMINOTRANSFERASE 181 U/L (9-52); ALBUMIN 2.9 g/dL (3.5-5.0); ALKALINE PHOSPHATASE 245 U/L (38-126); ANION GAP 12 (5-19); ASPARTATE AMINO TRANSFERASE 103 U/L (14-36); BILIRUBIN,DIRECT 2.9 mg/dL (0.0-0.4); BILIRUBIN,TOTAL 3.6 mg/dL (0.2-1.3); BLOOD UREA NITROGEN 4 mg/dL (7-20); CALCIUM 8.4 mg/dL (8.4-10.2); CARBON DIOXIDE 19 mmol/L (22-30); CHLORIDE 113 mmol/L (98-107); CREATININE RESULT 0.83 mg/dL (0.52-1.25); GLUCOSE 119 mg/dL (75-110); POTASSIUM 3.1 mmol/L (3.6-5.0); SODIUM 143.8 mmol/L (137-145); TOTAL PROTEIN 6.1 g/dL (6.3-8.2)
[2017-01-15] MEDS: NORMAL SALINE 1000 ML 1,000 ML IV PRN (07:50)
[2017-01-15] MEDS: CIPROFLOXACIN 400 MG/D5W RTU 200 ML IV SCH (09:04)
[2017-01-15] MEDS: PANTOPRAZOLE SODIUM 40 MG VIAL IV SCH (09:04)
[2017-01-15] MEDS ORDERED: ONDANSETRON HCL INJ/PF 4 MG/2 ML SDV IV SCH (10:00)
--- NOTE | 2017-01-15 10:14 | PDOC PROGRESS REPORT ---
Subjective Progress Note for:: 01/15/17 Subjective:: Patient tolerated the procedure well yesterday. Colonoscopy was largely negative I am awaiting biopsies to rule out for microscopic, lymphocytic, collagenous colitis. No mucosal evidence of ulcerative colitis or Crohn's disease noted. Biopsies pending to rule out Helicobacter pylori. She has a slight white count today. No explanation for retroperitoneal adenopathy. 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 Hemoglobin is stable. Physical Exam Vital Signs: Temp Pulse Resp BP Pulse Ox 99.1 F 69 17 133/57 H 98 01/15/17 07:39 01/15/17 07:39 01/15/17 07:39 01/15/17 07:39 01/15/17 07:39 Intake & Output 01/14/17 01/15/17 01/16/17 06:59 06:59 06:59 Intake Total 2400 5060 Output Total 600 800 Balance 1800 4260 Weight 107 kg 108.2 kg General appearance: PRESENT: no acute distress, cooperative Head exam: PRESENT: atraumatic, normocephalic Eye exam: PRESENT: EOMI, PERRLA. ABSENT: nystagmus, periorbital swelling, scleral icterus Mouth exam: PRESENT: moist, neck supple Throat exam: ABSENT: tonsillar exudate Neck exam: ABSENT: meningismus, tenderness, thyromegaly Respiratory exam: PRESENT: symmetrical, unlabored. ABSENT: tachypnea, wheezes Cardiovascular exam: PRESENT: RRR, +S1, +S2 GI/Abdominal exam: PRESENT: soft. ABSENT: rebound, rigid, tenderness Extremities exam: ABSENT: joint swelling Musculoskeletal exam: PRESENT: full ROM Neurological exam: PRESENT: oriented to time, oriented to situation, reflexes normal Skin exam: PRESENT: normal color. ABSENT: mottled, pallor, petechiae, urticaria , vesicles Results Laboratory Results: 01/15/17 04:18 01/15/17 04:18 01/15/17 01/15/17 04:18 04:18 WBC 13.1 H RBC 4.12 Hgb 12.0 Hct 35.7 L MCV 87 MCH 29.1 MCHC 33.5 RDW 14.3 H Plt Count 203 Seg Neutrophils % 75.8 Lymphocytes % 9.2 L Monocytes % 11.5 Eosinophils % 3.1 Basophils % 0.4 Absolute Neutrophils 9.9 H Absolute Lymphocytes 1.2 Absolute Monocytes 1.5 H Absolute Eosinophils 0.4 Absolute Basophils 0.1 Sodium 143.8 Potassium 3.1 L Chloride 113 H Carbon Dioxide 19 L Anion Gap 12 BUN 4 L Creatinine 0.83 Est GFR ( Amer) > 60 Est GFR (Non-Af Amer) > 60 Glucose 119 H Calcium 8.4 Total Bilirubin 3.6 H AST 103 H ALT 181 H Alkaline Phosphatase 245 H Total Protein 6.1 L Albumin 2.9 L 01/11/17 19:00 Stool - Stool - Final 01/11/17 19:00 Stool - Stool Stool Culture - Final NO SALMONELLA, SHIGELLA, CAMPYLOBACTER, OR E.COLI 0157 RECOVERED. NEGATIVE FOR SHIGA TOXINS 1&2. Impressions: Abdomen/Pelvis CT 01/09/17 15:50 IMPRESSION: The previously described mild haziness within the mesenteric in the lower quadrants appears less pronounced on the current study. There are multiple prominent mesenteric lymph nodes and periaortic lymph nodes as noted above. These are more pronounced than on the previous study. The possibility of a mesenteric adenitis or other inflammatory process should be considered. The possibility of an infiltrative process including a lymphoma should be considered. Other findings as noted above. Abdomen Ultrasound 01/10/17 00:00 IMPRESSION: NORMAL RIGHT UPPER QUADRANT ULTRASOUND. Abdomen/Pelvis CTA 01/10/17 00:00 IMPRESSION: NO ABDOMINAL AORTIC ANEURYSM, DISSECTION OR SIGNIFICANT STENOSIS. NO SIGNIFICANT FINDINGS IN THE ABDOMEN. AGAIN NOTED ARE PROMINENT MESENTERIC AND RETROPERITONEAL LYMPH NODES WHICH ARE NONSPECIFIC AND MAY BE RELATED TO ADENITIS HOWEVER CAN ALSO BE SEEN WITH LYMPHOMA. CORRELATE WITH LABORATORY DATA AND FOLLOW-UP IMAGING IN 3 TO 6 MONTHS TO ENSURE STABILITY. Hepatobiliary Scan Nuclear Medicine 01/12/17 00:00 IMPRESSION: There is persistent hepatic activity without visualization of activity in the bile ducts or gallbladder. The appearance is most consistent with diffuse hepatocellular disease as no dilated bile ducts were identified on the abdominal CT scan or abdominal ultrasound. Clinical correlation is recommended Abdomen MRI 01/13/17 00:00 IMPRESSION: Technical limitations due to patient motion and positioning. 1. Small amount of pericholecystic fluid, nonspecific. 2. No evidence of liver mass. 3. Retroperitoneal adenopathy. Assessment & Plan - Diagnosis (1) Abnormal LFTs Is this a current diagnosis for this admission?: YesPlan: Possible nonalcoholic fatty liver disease Continue to follow (3) Diarrhea Qualifiers: Diarrhea type: presumed infectious Qualified Code(s): A09 - Infectious gastroenteritis and colitis, unspecified Is this a current diagnosis for this admission?: YesPlan: Await biopsies to exclude lymphocytic, collagenous, microscopic colitis (4) Nausea & vomiting Qualifiers: Vomiting type: unspecified Vomiting Intractability: unspecified Qualified Code(s): R11.2 - Nausea with vomiting, unspecified Is this a current diagnosis for this admission?: YesPlan: Waiting biopsies to rule out Helicobacter pylori, started on PPI - Time Time Spent with patient: 15-24 minutes
[2017-01-15] MEDS: CHOLECALCIFEROL (D3) 1,000 UNIT TABLET PO SCH (11:24)
[2017-01-15] MEDS: LISINOPRIL 10 MG TABLET PO SCH (11:25)
--- NOTE | 2017-01-15 12:12 | PDOC PROGRESS REPORT ---
Subjective Progress Note for:: 01/15/17 Subjective:: Patient states she has continued nausea and vomiting. She has continued epigastric pain. Nursing states the patient did have dark stool. She has had occasional low-grade temperatures of 100.2. She denies chest pain, shortness of breath. Physical Exam Vital Signs: Temp Pulse Resp BP Pulse Ox 99.5 F 68 18 141/65 H 96 01/15/17 11:01 01/15/17 11:01 01/15/17 11:01 01/15/17 11:01 01/15/17 11:01 Intake & Output 01/14/17 01/15/17 01/16/17 06:59 06:59 06:59 Intake Total 2400 5060 Output Total 600 800 Balance 1800 4260 Weight 107 kg 108.2 kg GENERAL: No acute distress HEENT: Conjunctiva clear, nonicteric, moist mucous membranes, no JVD, midline trachea RESPIRATORY: Clear to auscultation bilaterally, no wheezes, no rhonchi CARDIAC: Regular rate and rhythm, no murmurs/gallops/rubs ABDOMEN: Soft, obese, mild epigastric tenderness, positive bowel sounds, no rebound, no guarding EXTREMETIES: No edema, cyanosis, clubbing NEUROLOGIC: Alert, oriented to person/place/time, CN's grossly intact, no focal deficits SKIN: No rash, wounds PSYCH: Normal mood, normal affect Results Laboratory Results: 01/15/17 04:18 01/15/17 04:18 01/15/17 01/15/17 04:18 04:18 WBC 13.1 H RBC 4.12 Hgb 12.0 Hct 35.7 L MCV 87 MCH 29.1 MCHC 33.5 RDW 14.3 H Plt Count 203 Seg Neutrophils % 75.8 Lymphocytes % 9.2 L Monocytes % 11.5 Eosinophils % 3.1 Basophils % 0.4 Absolute Neutrophils 9.9 H Absolute Lymphocytes 1.2 Absolute Monocytes 1.5 H Absolute Eosinophils 0.4 Absolute Basophils 0.1 Sodium 143.8 Potassium 3.1 L Chloride 113 H Carbon Dioxide 19 L Anion Gap 12 BUN 4 L Creatinine 0.83 Est GFR ( Amer) > 60 Est GFR (Non-Af Amer) > 60 Glucose 119 H Calcium 8.4 Total Bilirubin 3.6 H AST 103 H ALT 181 H Alkaline Phosphatase 245 H Total Protein 6.1 L Albumin 2.9 L 01/11/17 19:00 Stool - Stool - Final 01/11/17 19:00 Stool - Stool Stool Culture - Final NO SALMONELLA, SHIGELLA, CAMPYLOBACTER, OR E.COLI 0157 RECOVERED. NEGATIVE FOR SHIGA TOXINS 1&2. Impressions: Abdomen/Pelvis CT 01/09/17 15:50 IMPRESSION: The previously described mild haziness within the mesenteric in the lower quadrants appears less pronounced on the current study. There are multiple prominent mesenteric lymph nodes and periaortic lymph nodes as noted above. These are more pronounced than on the previous study. The possibility of a mesenteric adenitis or other inflammatory process should be considered. The possibility of an infiltrative process including a lymphoma should be considered. Other findings as noted above. Abdomen Ultrasound 01/10/17 00:00 IMPRESSION: NORMAL RIGHT UPPER QUADRANT ULTRASOUND. Abdomen/Pelvis CTA 01/10/17 00:00 IMPRESSION: NO ABDOMINAL AORTIC ANEURYSM, DISSECTION OR SIGNIFICANT STENOSIS. NO SIGNIFICANT FINDINGS IN THE ABDOMEN. AGAIN NOTED ARE PROMINENT MESENTERIC AND RETROPERITONEAL LYMPH NODES WHICH ARE NONSPECIFIC AND MAY BE RELATED TO ADENITIS HOWEVER CAN ALSO BE SEEN WITH LYMPHOMA. CORRELATE WITH LABORATORY DATA AND FOLLOW-UP IMAGING IN 3 TO 6 MONTHS TO ENSURE STABILITY. Hepatobiliary Scan Nuclear Medicine 01/12/17 00:00 IMPRESSION: There is persistent hepatic activity without visualization of activity in the bile ducts or gallbladder. The appearance is most consistent with diffuse hepatocellular disease as no dilated bile ducts were identified on the abdominal CT scan or abdominal ultrasound. Clinical correlation is recommended Abdomen MRI 01/13/17 00:00 IMPRESSION: Technical limitations due to patient motion and positioning. 1. Small amount of pericholecystic fluid, nonspecific. 2. No evidence of liver mass. 3. Retroperitoneal adenopathy. Assessment & Plan - Diagnosis (1) Sepsis Qualifiers: Sepsis type: sepsis due to unspecified organism Qualified Code(s): A41.9 - Sepsis, unspecified organism Is this a current diagnosis for this admission?: YesPlan: Culture workup negative. Patient tested positive for Sasha-Agosto virus which could explain fever, nausea, vomiting, abdominal pain, elevated liver function tests, acute kidney injury, mesenteric adenitis. I have discussed the case with Dr. Khoury of infectious disease at [facility]. He is going to further discuss the case with his colic and call me back. (2) Sasha Agosto infection Is this a current diagnosis for this admission?: YesPlan: Patient tested positive for Sasha-Agosto virus which could explain fever, nausea , vomiting, abdominal pain, elevated liver function tests, acute kidney injury, mesenteric adenitis. I have discussed the case with Dr. Khoury of infectious disease at [facility]. He is going to further discuss the case with his colic and call me back. For now he states that if this is a true acute Sasha-Agosto virus infection symptomatic treatment is all that can be provided. (3) Epigastric pain Is this a current diagnosis for this admission?: YesPlan: EGD with gastritis. Continue Protonix. EBV infection contributing. (4) Nausea & vomiting Qualifiers: Vomiting type: unspecified Vomiting Intractability: unspecified Qualified Code(s): R11.2 - Nausea with vomiting, unspecified Is this a current diagnosis for this admission?: Yes (5) Abnormal LFTs Is this a current diagnosis for this admission?: Yes (6) Diarrhea Qualifiers: Diarrhea type: presumed infectious Qualified Code(s): A09 - Infectious gastroenteritis and colitis, unspecified Is this a current diagnosis for this admission?: YesPlan: C. difficile negative. Stool culture negative. Colonoscopy showed mild right- sided inflammation, normal terminal ileum, normal colonic mucosa, internal hemorrhoids. (7) Obesity (BMI 30-39.9) Is this a current diagnosis for this admission?: Yes (8) Abdominal lymphadenopathy Is this a current diagnosis for this admission?: YesPlan: Possibly secondary to Sasha-Agosto virus infection. Follow-up CT scan in 3 months. (9) Renal insufficiency Is this a current diagnosis for this admission?: YesPlan: Resolved. (10) Diabetes mellitus type II, controlled Qualifiers: Diabetes mellitus complication status: with unspecified complications Diabetes mellitus intermediate accountant insulin use: without care home use Qualified Code(s): E11.8 - Type 2 diabetes mellitus with unspecified complications; Z79.4 - long-term (current) use of insulin Is this a current diagnosis for this admission?: YesPlan: Reports last hemoglobin A1c 5.9. Hold trulicity as it commonly causes nausea, vomiting, diarrhea, abdominal pain, and rarely pancreatitis - Time Time Spent with patient: 35 or more minutes Anticipated discharge: Home Within: within 72 hours
[2017-01-15] MEDS ORDERED: POTASSI CL 20 MEQ/1/2NS 1L 1,000 ML IV PRN (12:13)
--- NOTE | 2017-01-15 12:52 | PDOC PROGRESS REPORT ---
Subjective Progress Note for:: 01/15/17 Subjective:: biopsies results noted patient does have collagenous colitis usual treatment would be peptobismol or if that does not work, then will need 5 ASA treatment, possibly mesalamine patient also noted to have H.Pylori gastritis treatment would involve amoxicillin 1gram BID, Biaxin 500mg po BID, bismuth subsalicylate chewables BID along with daily PPI spoke with Dr Heredia This is an addendum to the previous note. Physical Exam Vital Signs: Temp Pulse Resp BP Pulse Ox 99.5 F 68 18 141/65 H 96 01/15/17 11:01 01/15/17 11:01 01/15/17 11:01 01/15/17 11:01 01/15/17 11:01 Intake & Output 01/14/17 01/15/17 01/16/17 06:59 06:59 06:59 Intake Total 2400 5060 Output Total 600 800 Balance 1800 4260 Weight 107 kg 108.2 kg Results Laboratory Results: 01/15/17 04:18 01/15/17 04:18 01/15/17 01/15/17 04:18 04:18 WBC 13.1 H RBC 4.12 Hgb 12.0 Hct 35.7 L MCV 87 MCH 29.1 MCHC 33.5 RDW 14.3 H Plt Count 203 Seg Neutrophils % 75.8 Lymphocytes % 9.2 L Monocytes % 11.5 Eosinophils % 3.1 Basophils % 0.4 Absolute Neutrophils 9.9 H Absolute Lymphocytes 1.2 Absolute Monocytes 1.5 H Absolute Eosinophils 0.4 Absolute Basophils 0.1 Sodium 143.8 Potassium 3.1 L Chloride 113 H Carbon Dioxide 19 L Anion Gap 12 BUN 4 L Creatinine 0.83 Est GFR ( Amer) > 60 Est GFR (Non-Af Amer) > 60 Glucose 119 H Calcium 8.4 Total Bilirubin 3.6 H AST 103 H ALT 181 H Alkaline Phosphatase 245 H Total Protein 6.1 L Albumin 2.9 L Impressions: Abdomen/Pelvis CT 01/09/17 15:50 IMPRESSION: The previously described mild haziness within the mesenteric in the lower quadrants appears less pronounced on the current study. There are multiple prominent mesenteric lymph nodes and periaortic lymph nodes as noted above. These are more pronounced than on the previous study. The possibility of a mesenteric adenitis or other inflammatory process should be considered. The possibility of an infiltrative process including a lymphoma should be considered. Other findings as noted above. Abdomen Ultrasound 01/10/17 00:00 IMPRESSION: NORMAL RIGHT UPPER QUADRANT ULTRASOUND. Abdomen/Pelvis CTA 01/10/17 00:00 IMPRESSION: NO ABDOMINAL AORTIC ANEURYSM, DISSECTION OR SIGNIFICANT STENOSIS. NO SIGNIFICANT FINDINGS IN THE ABDOMEN. AGAIN NOTED ARE PROMINENT MESENTERIC AND RETROPERITONEAL LYMPH NODES WHICH ARE NONSPECIFIC AND MAY BE RELATED TO ADENITIS HOWEVER CAN ALSO BE SEEN WITH LYMPHOMA. CORRELATE WITH LABORATORY DATA AND FOLLOW-UP IMAGING IN 3 TO 6 MONTHS TO ENSURE STABILITY. Hepatobiliary Scan Nuclear Medicine 01/12/17 00:00 IMPRESSION: There is persistent hepatic activity without visualization of activity in the bile ducts or gallbladder. The appearance is most consistent with diffuse hepatocellular disease as no dilated bile ducts were identified on the abdominal CT scan or abdominal ultrasound. Clinical correlation is recommended Abdomen MRI 01/13/17 00:00 IMPRESSION: Technical limitations due to patient motion and positioning. 1. Small amount of pericholecystic fluid, nonspecific. 2. No evidence of liver mass. 3. Retroperitoneal adenopathy. Assessment & Plan - Diagnosis (1) Abnormal LFTs Is this a current diagnosis for this admission?: Yes (3) Diarrhea Qualifiers: Diarrhea type: presumed infectious Qualified Code(s): A09 - Infectious gastroenteritis and colitis, unspecified Is this a current diagnosis for this admission?: Yes (4) Nausea & vomiting Qualifiers: Vomiting type: unspecified Vomiting Intractability: unspecified Qualified Code(s): R11.2 - Nausea with vomiting, unspecified Is this a current diagnosis for this admission?: Yes
[2017-01-15 14:17] LABS: DEAMIDATED GLIADIN IGA AB 2 units (0-19); DEAMIDATED GLIADIN IGG AB 2 units (0-19); IMMUNOGLOBULIN A 2 200 mg/dL (87-352); T-TRANSGLUTAMINASE (TTG) IGG <2 U/mL (0-5)
[2017-01-15] MEDS: LANSOPRAZOLE 30 MG TAB.RAP.DR PO SCH (17:11)
[2017-01-15] MEDS: BISMUTH SUBSALICYLATE 262 MG TAB.CHEW PO SCH (17:12)
[2017-01-15] MEDS: CLARITHROMYCIN 500 MG TABLET PO SCH (17:39)
[2017-01-15] MEDS: AMOXICILLIN TRIHYDRATE 500 MG CAPSULE PO SCH (21:09)
[2017-01-16 04:34] LABS: ABSOLUTE BASOPHILS # (AUTO) 0.1 10^3/uL (0.0-0.2); ABSOLUTE EOSINOPHILS # (AUTO) 0.6 10^3/uL (0.0-0.6); ABSOLUTE NEUT (AUTO) 8.3 10^3/uL (1.7-8.2); BASOPHILS % (AUTO) 0.6 % (0-2); EOSINOPHILS % (AUTO) 5.4 % (0-6); HEMATOCRIT 32.7 % (36.0-47.0); HGB HCT DIFFERENCE 0.3; LYMPHOCYTES % (AUTO) 16.3 % (13-45); MEAN CORPUSCULAR HEMOGLOBIN 29.1 pg (27.0-33.4); MEAN CORPUSCULAR HGB CONC 33.7 g/dL (32.0-36.0); MEAN CORPUSCULAR VOLUME 86 fl (80-97); MONOCYTES % (AUTO) 8.1 % (3-13); RED BLOOD COUNT 3.79 10^6/uL (3.72-5.28); RED CELL DISTRIBUTION WIDTH 14.7 % (11.5-14.0); SEGMENTED NEUTROPHILS % (AUTO) 69.6 % (42-78)
[2017-01-16 04:48] LABS: ALANINE AMINOTRANSFERASE 135 U/L (9-52); ALBUMIN 2.7 g/dL (3.5-5.0); ALKALINE PHOSPHATASE 225 U/L (38-126); ANION GAP 11 (5-19); ASPARTATE AMINO TRANSFERASE 61 U/L (14-36); BILIRUBIN,DIRECT 1.2 mg/dL (0.0-0.4); BILIRUBIN,TOTAL 1.8 mg/dL (0.2-1.3); BLOOD UREA NITROGEN 5 mg/dL (7-20); CALCIUM 8.6 mg/dL (8.4-10.2); CARBON DIOXIDE 20 mmol/L (22-30); CHLORIDE 114 mmol/L (98-107); GLUCOSE 89 mg/dL (75-110); POTASSIUM 3.2 mmol/L (3.6-5.0); SODIUM 144.8 mmol/L (137-145); TOTAL PROTEIN 5.8 g/dL (6.3-8.2)
[2017-01-16] MEDS: CLARITHROMYCIN 500 MG TABLET PO SCH (05:43)
[2017-01-16] MEDS: LANSOPRAZOLE 30 MG TAB.RAP.DR PO SCH (05:44)
[2017-01-16] MEDS: ONDANSETRON HCL INJ/PF 4 MG/2 ML SDV IV PRN (05:53)
[2017-01-16] MEDS: HEPARIN SOD (PORCINE) 5,000 UNIT/ML 1 ML SYRINGE SUBCUT SCH (06:06)
[2017-01-16 07:11] LABS: CMV DNA PCR QUANT Negative (Negative)
[2017-01-16] MEDS ORDERED: ONDANSETRON HCL INJ/PF 4 MG/2 ML SDV IV PRN (09:06)
[2017-01-16] MEDS: CHOLECALCIFEROL (D3) 1,000 UNIT TABLET PO SCH (09:33)
[2017-01-16] MEDS: LISINOPRIL 10 MG TABLET PO SCH (09:33)
[2017-01-16] MEDS: BISMUTH SUBSALICYLATE 262 MG TAB.CHEW PO SCH (09:34)
[2017-01-16] MEDS: AMOXICILLIN TRIHYDRATE 500 MG CAPSULE PO SCH (09:34)
--- NOTE | 2017-01-16 11:57 | PDOC DISCHARGE SUMMARY ---
General - Admit/Disc Date/PCP Admission Date/Primary Care Provider: 01/09/17 18:08 ISABEL FLORES MD Discharge Date: 01/16/17 - Discharge Diagnosis (1) Sepsis Is this a current diagnosis for this admission?: Yes (2) Sasha Agosto infection Is this a current diagnosis for this admission?: Yes (3) Acute gastritis Is this a current diagnosis for this admission?: Yes (4) Collagenous colitis Is this a current diagnosis for this admission?: Yes (5) Abnormal LFTs Is this a current diagnosis for this admission?: Yes (6) Abdominal lymphadenopathy Is this a current diagnosis for this admission?: Yes (7) Renal insufficiency Is this a current diagnosis for this admission?: Yes (8) Diabetes mellitus type II, controlled Is this a current diagnosis for this admission?: Yes (9) Obesity (BMI 30-39.9) Is this a current diagnosis for this admission?: Yes - Additional Information Resuscitation Status: Full Code Discharge Diet: Diabetic Discharge Activity: Slowly Increase Activity Home Medications: Cholecalciferol (Vitamin D3) [Vitamin D3 5000 unit Capsule] 5,000 units PO DAILY 01/09/17 Citalopram Hydrobromide [Celexa 40 mg Tablet] 40 mg PO QHS 01/09/17 Dulaglutide [Trulicity] 1.5 mg SQ SILVA@1000 01/09/17 Lisinopril [Zestril] 20 mg PO DAILY 01/09/17 Multivitamin [Daily Multiple Vitamin] 1 tab PO DAILY 01/09/17 Amoxicillin Trihydrate [Amoxil 500 mg Capsule] 1,000 mg PO Q12 #40 capsule 01/16 Bismuth Subsalicylate [Pepto-Bismol 262 Chewable Tablet] 262 mg PO BID #60 tab.chew 01/16/17 Clarithromycin [Biaxin 500 mg Tablet] 500 mg PO Q12A #20 tablet 01/16/17 Lansoprazole [Prevacid 30 mg Odt Tablet] 30 mg PO BID@0600,1700 #60 tab.rap.dr 01/16/17 Promethazine HCl [Phenergan 25 mg Tablet] 25 mg PO Q4HP PRN #10 tablet 01/16/17 History of Present Illness Patient complains of: Nausea, vomiting, diarrhea History of Present Illness: BONNY ASKEW is a 61 year old female with past medical history of hypertension, hyperlipidemia, and diabetes mellitus reports 2 weeks of diarrhea. Patient reports she has had liquid stools that are foul-smelling. She denies any hematochezia or melena. Patient reports that she has had significant amounts of nausea for several months. She reports that she started vomiting 2 days ago and was unable to keep anything down. She reports that she had back pain underneath her shoulder blades particularly on the right beginning yesterday. She does report some midepigastric pain. She denies feeling the need for any sort of pain medication at this time and denies that the pain worsens with eating. Today she reports going into work and feeling weak and dizzy and having some spots before her vision. She states she went to her primary care physician and was found to have a low blood pressure 80/40 and reported to the emergency department. Patient denies any fevers or chills or night sweats. Patient does report an intentional 80 pound weight loss. Patient reports starting anterolaterally approximately 1 year ago she does describe to currently a frontal headache which is new for her. She reports that she did have her hemoglobin A1c done approximately a week ago and was found to be 5.9. Patient is referred to hospital service for acute renal failure, hypotension, and persistent diarrhea. Hospital Course Hospital Course: Patient was admitted with nausea, vomiting, and diarrhea of approximately 1 week duration. During hospitalization she was also noted to have elevated liver function test and epigastric pain. She underwent extensive evaluation to include CT of abdomen and pelvis that showed evidence of mesenteric adenitis. Right upper quadrant ultrasound was normal. HIDA scan was consistent with hepatocellular disease but no acute process. MRI of abdomen showed retroperitoneal adenopathy, no liver mass. Patient had extensive lab workup as well that revealed evidence of EBV infection. This would be consistent mesenteric adenitis and elevated liver function studies that were also noted. Patient underwent EGD that showed gastritis and was H. pylori positive on biopsy. She has been started on amoxicillin, Biaxin, and Prevacid. She will need to follow-up with Dr. Granados of gastroenterology. Patient underwent colonoscopy that had evidence of collagenous colitis. GI has recommended the patient be on Pepto-Bismol twice daily. Patient will need follow-up CT scan of the abdomen in 3 months to ensure resolution of mesenteric adenitis. Physical Exam Vital Signs: Temp Pulse Resp BP Pulse Ox 99.0 F 71 17 139/61 H 98 01/16/17 07:57 01/16/17 07:57 01/16/17 07:57 01/16/17 07:57 01/16/17 07:57 Intake & Output 01/15/17 01/16/17 01/17/17 06:59 06:59 06:59 Intake Total 5060 3330 Output Total 800 3750 Balance 4260 -420 Weight 108.2 kg 111.8 kg GENERAL: No acute distress HEENT: Conjunctiva clear, nonicteric, moist mucous membranes, no JVD, midline trachea RESPIRATORY: Clear to auscultation bilaterally, no wheezes, no rhonchi CARDIAC: Regular rate and rhythm, no murmurs/gallops/rubs ABDOMEN: Soft, nondistended, nontender, positive bowel sounds, no rebound, no guarding EXTREMETIES: No edema, cyanosis, clubbing NEUROLOGIC: Alert, oriented to person/place/time, CN's grossly intact, no focal deficits SKIN: No rash, wounds PSYCH: Normal mood, normal affect Results Laboratory Results: 01/16/17 04:07 01/16/17 04:07 01/16/17 01/16/17 04:07 04:07 WBC 12.0 H RBC 3.79 Hgb 11.0 L Hct 32.7 L MCV 86 MCH 29.1 MCHC 33.7 RDW 14.7 H Plt Count 219 Seg Neutrophils % 69.6 Lymphocytes % 16.3 Monocytes % 8.1 Eosinophils % 5.4 Basophils % 0.6 Absolute Neutrophils 8.3 H Absolute Lymphocytes 2.0 Absolute Monocytes 1.0 Absolute Eosinophils 0.6 Absolute Basophils 0.1 Sodium 144.8 Potassium 3.2 L Chloride 114 H Carbon Dioxide 20 L Anion Gap 11 BUN 5 L Creatinine 0.90 Est GFR ( Amer) > 60 Est GFR (Non-Af Amer) > 60 Glucose 89 Calcium 8.6 Total Bilirubin 1.8 H AST 61 H ALT 135 H Alkaline Phosphatase 225 H Total Protein 5.8 L Albumin 2.7 L 01/11/17 10:56 Blood Blood Culture - Final NO GROWTH IN 5 DAYS 01/11/17 10:47 Blood Blood Culture - Final NO GROWTH IN 5 DAYS Labs- Last Values WBC 12.0 10^3/uL (4.0-10.5) H 01/16/17 04:07 RBC 3.79 10^6/uL (3.72-5.28) 01/16/17 04:07 Hgb 11.0 g/dL (12.0-15.5) L 01/16/17 04:07 Hct 32.7 % (36.0-47.0) L 01/16/17 04:07 MCV 86 fl (80-97) 01/16/17 04:07 MCH 29.1 pg (27.0-33.4) 01/16/17 04:07 MCHC 33.7 g/dL (32.0-36.0) 01/16/17 04:07 RDW 14.7 % (11.5-14.0) H 01/16/17 04:07 Plt Count 219 10^3/uL (150-450) 01/16/17 04:07 Seg Neutrophils % 69.6 % (42-78) 01/16/17 04:07 Lymphocytes % 16.3 % (13-45) 01/16/17 04:07 Monocytes % 8.1 % (3-13) 01/16/17 04:07 Eosinophils % 5.4 % (0-6) 01/16/17 04:07 Basophils % 0.6 % (0-2) 01/16/17 04:07 Absolute Neutrophils 8.3 10^3/uL (1.7-8.2) H 01/16/17 04:07 Absolute Lymphocytes 2.0 10^3/uL (0.5-4.7) 01/16/17 04:07 Absolute Monocytes 1.0 10^3/uL (0.1-1.4) 01/16/17 04:07 Absolute Eosinophils 0.6 10^3/uL (0.0-0.6) 01/16/17 04:07 Absolute Basophils 0.1 10^3/uL (0.0-0.2) 01/16/17 04:07 VBG pH 7.31 (7.30-7.42) 01/09/17 14:58 VBG pCO2 51.9 mmHg (35-63) 01/09/17 14:58 VBG HCO3 25.5 mmol/L (20-32) 01/09/17 14:58 VBG Base Excess -1.5 mmol/L 01/09/17 14:58 Sodium 144.8 mmol/L (137-145) 01/16/17 04:07 Potassium 3.2 mmol/L (3.6-5.0) L 01/16/17 04:07 Chloride 114 mmol/L (98-107) H 01/16/17 04:07 Carbon Dioxide 20 mmol/L (22-30) L 01/16/17 04:07 Anion Gap 11 (5-19) 01/16/17 04:07 BUN 5 mg/dL (7-20) L 01/16/17 04:07 Creatinine 0.90 mg/dL (0.52-1.25) 01/16/17 04:07 Est GFR ( Amer) > 60 (>60) 01/16/17 04:07 Est GFR (Non-Af Amer) > 60 (>60) 01/16/17 04:07 Glucose 89 mg/dL (75-110) 01/16/17 04:07 POC Glucose 124 mg/dL (70-110) H 01/16/17 06:51 Lactic Acid 0.9 mmol/L (0.7-2.1) 01/09/17 14:58 Calcium 8.6 mg/dL (8.4-10.2) 01/16/17 04:07 Phosphorus 3.5 mg/dL (2.5-4.5) 01/13/17 03:25 Magnesium 1.9 mg/dL (1.6-2.3) 01/13/17 03:25 Total Bilirubin 1.8 mg/dL (0.2-1.3) H 01/16/17 04:07 Direct Bilirubin 1.2 mg/dL (0.0-0.4) H 01/16/17 04:07 Indirect Bilirubin Not Reportable 01/16/17 04:07 Neonat Total Bilirubin Not Reportable 01/16/17 04:07 AST 61 U/L (14-36) H 01/16/17 04:07 ALT 135 U/L (9-52) H 01/16/17 04:07 Alkaline Phosphatase 225 U/L (38-126) H 01/16/17 04:07 Total Protein 5.8 g/dL (6.3-8.2) L 01/16/17 04:07 Albumin 2.7 g/dL (3.5-5.0) L 01/16/17 04:07 Lipase 196.3 U/L (23-300) 01/12/17 14:22 Immunoglobulin G 1264 mg/dL (700-1600) 01/15/17 11:54 Urine Color YELLOW 01/11/17 10:26 Urine Appearance CLEAR 01/11/17 10:26 Urine pH 5.0 (5.0-9.0) 01/11/17 10:26 Ur Specific [place] 1.012 01/11/17 10:26 Urine Protein NEGATIVE mg/dL (NEGATIVE) 01/11/17 10:26 Urine Glucose (UA) NEGATIVE mg/dL (NEGATIVE) 01/11/17 10:26 Urine Ketones NEGATIVE mg/dL (NEGATIVE) 01/11/17 10:26 Urine Blood SMALL (NEGATIVE) H 01/11/17 10:26 Urine Nitrite NEGATIVE (NEGATIVE) 01/11/17 10:26 Urine Bilirubin NEGATIVE (NEGATIVE) 01/11/17 10:26 Urine Urobilinogen NEGATIVE mg/dL (<2.0) 01/11/17 10:26 Ur Leukocyte Esterase NEGATIVE (NEGATIVE) 01/11/17 10:26 Urine WBC (Auto) 1 /HPF 01/11/17 10:26 Urine RBC (Auto) 1 /HPF 01/11/17 10:26 U Hyaline Cast (Auto) 47 /LPF 01/09/17 15:55 Urine Bacteria (Auto) TRACE /HPF 01/09/17 15:55 Squamous Epi Cells Auto 1 /HPF 01/11/17 10:26 U Non-Squamous Epis Auto 2 /HPF 01/09/17 15:55 Urine Mucus (Auto) RARE /LPF 01/11/17 10:26 Urine Ascorbic Acid NEGATIVE (NEGATIVE) 01/11/17 10:26 Stool Occult Blood NEGATIVE (NEGATIVE) 01/09/17 22:00 Stool for White Cells FEW H 01/09/17 22:00 IgA 200 mg/dL (87-352) 01/12/17 14:22 Rheumatoid Factor NEGATIVE (NEGATIVE) 01/15/17 11:54 Atypical p-ANCA <1:20 titer (Neg:<1:20) 01/12/17 14:22 Endomysial IgA Ab Negative (Negative) 01/12/17 14:22 Tiss Transglutamin IgG <2 U/mL (0-5) 01/12/17 14:22 Tiss Transglutamin IgA <2 U/mL (0-3) 01/12/17 14:22 Anti-Gliadin IgG Deam 2 units (0-19) 01/12/17 14:22 Anti-Gliadin IgA Deam 2 units (0-19) 01/12/17 14:22 C. difficile Tox (PCR) NEGATIVE (NEGATIVE) 01/09/17 22:00 CMV DNA Quant PCR TNP 01/12/17 14:22 CMV DNA PCR copies/ml Negative IU/mL (Negative) 01/12/17 14:22 EBV Capsid Ag IgG Ab 198.0 U/mL (0.0-17.9) H 01/12/17 14:22 EBV Capsid Ag IgM Ab <36.0 U/mL (0.0-35.9) 01/12/17 14:22 EBV Early Antigen IgG 82.7 U/mL (0.0-8.9) H 01/12/17 14:22 EBV Early Ag Ab Diffuse 1:80 (Neg:<1:20) H 01/12/17 14:22 EBV EA Restrict+Diffuse 1:40 (Neg:<1:20) H 01/12/17 14:22 EBV Nuclear Ag IgG Ab 371.0 U/mL (0.0-17.9) H 01/12/17 14:22 EBV Interpretation Comment (.) 01/12/17 14:22 Hepatitis A IgM Ab Negative (Negative) 01/12/17 14:22 Hep Bs Antigen Negative (Negative) 01/12/17 14:22 Hep B Core IgM Ab Negative (Negative) 01/12/17 14:22 Hepatitis C Antibody <0.1 s/co ratio (0.0-0.9) 01/12/17 14:22 HIV 1&2 Antibody NEGATIVE (NEGATIVE) 01/12/17 14:22 S.cerevisiae IgG Ab <20.0 Units (0.0-24.9) 01/12/17 14:22 S.cerevisiae IgA Ab <20.0 Units (0.0-24.9) 01/12/17 14:22 Impressions: Abdomen/Pelvis CT 01/09/17 15:50 IMPRESSION: The previously described mild haziness within the mesenteric in the lower quadrants appears less pronounced on the current study. There are multiple prominent mesenteric lymph nodes and periaortic lymph nodes as noted above. These are more pronounced than on the previous study. The possibility of a mesenteric adenitis or other inflammatory process should be considered. The possibility of an infiltrative process including a lymphoma should be considered. Other findings as noted above. Abdomen Ultrasound 01/10/17 00:00 IMPRESSION: NORMAL RIGHT UPPER QUADRANT ULTRASOUND. Abdomen/Pelvis CTA 01/10/17 00:00 IMPRESSION: NO ABDOMINAL AORTIC ANEURYSM, DISSECTION OR SIGNIFICANT STENOSIS. NO SIGNIFICANT FINDINGS IN THE ABDOMEN. AGAIN NOTED ARE PROMINENT MESENTERIC AND RETROPERITONEAL LYMPH NODES WHICH ARE NONSPECIFIC AND MAY BE RELATED TO ADENITIS HOWEVER CAN ALSO BE SEEN WITH LYMPHOMA. CORRELATE WITH LABORATORY DATA AND FOLLOW-UP IMAGING IN 3 TO 6 MONTHS TO ENSURE STABILITY. Hepatobiliary Scan Nuclear Medicine 01/12/17 00:00 IMPRESSION: There is persistent hepatic activity without visualization of activity in the bile ducts or gallbladder. The appearance is most consistent with diffuse hepatocellular disease as no dilated bile ducts were identified on the abdominal CT scan or abdominal ultrasound. Clinical correlation is recommended Abdomen MRI 01/13/17 00:00 IMPRESSION: Technical limitations due to patient motion and positioning. 1. Small amount of pericholecystic fluid, nonspecific. 2. No evidence of liver mass. 3. Retroperitoneal adenopathy. Qualifiers PATEINT BEING DISCHARGED WITH ANY OF THE FOLLOWING DIAGNOSIS?: No Plan Time Spent: Less than 30 Minutes
[2017-01-16 12:37] VITALS: BP 134/64
[2017-01-16 12:38] LABS: JO-1 ANTIBODY (ANACOMP) <0.2 AI (0.0-0.9)
== END 2017-01-16 13:13 | disposition home or self-care (01) | DRG 872 ==
LOC: ER 14:40 → EH 18:08 → 4N 20:30
PROVIDERS: ADMIT Family Medicine; ATTEND Family Medicine
PROC: 0DB68ZX Excision of Stomach, Via Natural or Artificial Opening Endoscopic, Diagnostic (ICD-10-PCS; principal; 2017-01-14 12:30)
PROC: 0DBF8ZX Excision of Right Large Intestine, Via Natural or Artificial Opening Endoscopic, Diagnostic (ICD-10-PCS; 2017-01-14 12:30)
DX: A41.9 Sepsis, unspecified organism (principal); N17.9 Acute kidney failure, unspecified; B27.00 Gammaherpesviral mononucleosis without complication; K52.831 Collagenous colitis; K29.00 Acute gastritis without bleeding; I10 Essential (primary) hypertension; E78.5 Hyperlipidemia, unspecified; I88.0 Nonspecific mesenteric lymphadenitis; E86.0 Dehydration; E66.01 Morbid (severe) obesity due to excess calories; I12.9 Hypertensive chronic kidney disease with stage 1 through stage 4 chronic kidney disease, or unspecified chronic kidney disease; E11.22 Type 2 diabetes mellitus with diabetic chronic kidney disease; N18.3 Chronic kidney disease, stage 3 (moderate); Z68.39 Body mass index [BMI] 39.0-39.9, adult; R59.1 Generalized enlarged lymph nodes; F32.9 Major depressive disorder, single episode, unspecified; Z87.891 Personal history of nicotine dependence; Z82.49 Family history of ischemic heart disease and other diseases of the circulatory system; Z80.9 Family history of malignant neoplasm, unspecified; Z79.899 Other long term (current) drug therapy; Z79.4 Long term (current) use of insulin
CPT/HCPCS: 36415; 43239; 45380; 74174; 74176; 74183; 76705; 78227; 80053; 80074; 81001; 82272; 82784; 82803; 82962; 83520; 83605; 83690; 83735; 84100; 85025; 86225; 86235; 86256; 86430; 86663; 86664; 86665; 86701; 87040; 87045; 87086; 87177; 87205; 87493; 87496; 88305; 88342; 89055; 99285; A9537; A9576; J0171; J0744; J1200; J1610; J1644; J2250; J2270; J2310; J2405; J2543; J2765; J2805; J3010; J3475; J3480; J3490; J7030; Q9969; S0164

== ENCOUNTER 2018-06-25 13:00 | Emergency (ER) | payer OTHER, BC ==
--- NOTE | 2018-06-25 14:54 | ER Document Report ---
ED Extremity Problem, Lower - General Chief Complaint: Leg Pain Stated Complaint: LEG PAIN Time Seen by Provider: 06/25/18 14:37 Mode of Arrival: Wheelchair Information source: Patient Notes: 62-year-old female presented to ED for complaint of left leg pain. States it started last night after she twisted her knee at work. She states she went to an urgent care this morning and they told her that she had a blood clot in the back of her left leg. She states they told her to come to the ER to get checked out for blood clot as she could feel a blood clot in her leg. Patient states she is not sedentary she works at [employer] and walks constantly. She states she does not smoke and she has not had any recent surgeries. She is alert and oriented respirations regular and unlabored speaking in full sentences. TRAVEL OUTSIDE OF THE [place] IN LAST 30 DAYS: No - HPI Patient complains to provider of: Injury, Pain Location: Knee Occurred: Yesterday Where: Work Onset/Duration: Intermittent Quality of pain: Achy, Sharp Severity: Severe Pain Level: 5 Context: Twisted Recent injury: Yes Associated symptoms: Painful ambulation Exacerbated by: Movement, Walking Relieved by: Nothing, Elevation, Ice, Rest - Related Data Allergies/Adverse Reactions: No Known Allergies Allergy (Verified 01/09/17 14:43) Past Medical History - General Information source: Patient - Social History Smoking Status: Former Smoker Cigarette use (# per day): No Chew tobacco use (# tins/day): No Smoking Education Provided: No Frequency of alcohol use: None Drug Abuse: None Occupation: [employer] Lives with: Family Family History: Reviewed & Not Pertinent Patient has suicidal ideation: No Patient has homicidal ideation: No - Past Medical History Cardiac Medical History: Reports: Hx Hypercholesterolemia, Hx Hypertension Pulmonary Medical History: Reports: None EENT Medical History: Reports: None Neurological Medical History: Reports: None Endocrine Medical History: Reports: Hx Diabetes Mellitus Type 2 - On Trulicity injection once a week. Says that she has lost 80 pounds. 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 care doctor Malignancy Medical History: Reports: None GI Medical History: Reports: Hx Gastroesophageal Reflux Disease Musculoskeletal Medical History: Reports Hx Arthritis, Reports Hx Musculoskeletal Trauma, Reports Other - lupus Psychiatric Medical History: Reports: Hx Depression Traumatic Medical History: Reports: None Infectious Medical History: Reports: None Past Surgical History: Reports: Hx Tonsillectomy - Immunizations Immunizations up to date: Yes Hx Diphtheria, Pertussis, Tetanus Vaccination: Yes Review of Systems - Review of Systems Constitutional: No symptoms reported EENT: No symptoms reported Cardiovascular: No symptoms reported Respiratory: No symptoms reported Gastrointestinal: No symptoms reported Genitourinary: No symptoms reported Female Genitourinary: No symptoms reported Musculoskeletal: Other - Left knee pain, pain to the posterior left leg Skin: No symptoms reported Hematologic/Lymphatic: No symptoms reported Neurological/Psychological: No symptoms reported -: Yes All other systems reviewed and negative Physical Exam - Vital signs Vitals: Temp Pulse Resp BP Pulse Ox 99.0 F 84 18 143/72 H 97 06/25/18 13:41 06/25/18 13:41 06/25/18 13:41 06/25/18 13:41 06/25/18 13:41 Interpretation: Normal - General General appearance: Appears well, Alert - HEENT Head: Normocephalic, Atraumatic Eyes: Normal Pupils: PERRL - Respiratory Respiratory status: No respiratory distress Chest status: Nontender Breath sounds: Normal Chest palpation: Normal - Cardiovascular Rhythm: Regular Heart sounds: Normal auscultation Murmur: No - Abdominal Inspection: Normal Distension: No distension Bowel sounds: Normal Tenderness: Nontender Organomegaly: No organomegaly - Back Back: Normal, Nontender - Extremities General upper extremity: Normal inspection, Nontender, Normal color, Normal ROM, Normal temperature General lower extremity: Normal color, Normal ROM, Normal temperature. No: Bo's sign Knee: Tender, Pain with ROM, Patellar tendon intact, Popliteal fossa tender, Tender joint line. No: Abrasion, Dislocation, Drawer's test instability, Ecchymosis, Instability, Joint effusion, Laceration, Laxity with valgus stress, Laxity with varus stress - Neurological Neuro grossly intact: Yes Cognition: Normal Orientation: AAOx4 [place] Coma Scale Eye Opening: Spontaneous [place] Coma Scale Verbal: Oriented [place] Coma Scale Motor: Obeys Commands [place] Coma Scale Total: 15 Speech: Normal Motor strength normal: LUE, RUE, LLE, RLE Sensory: Normal - Psychological Associated symptoms: Normal affect, Normal mood - Skin Skin Temperature: Warm Skin Moisture: Dry Skin Color: Normal Course - Re-evaluation Re-evalutation: 06/25/18 21:32 X-ray was negative to the left knee. Venous Doppler was also negative. I did call Dr. Kothari to ensure that the venous Doppler was negative as the tech had stated it appeared to her. Patient was treated with a knee immobilizer and crutches and discharged home with instructions to follow primary doctor and orthopedics. Patient verbalizes understanding and agreement with treatment plan. - Vital Signs Vital signs: Temp Pulse Resp BP Pulse Ox 99.0 F 86 18 134/77 H 96 06/25/18 13:41 06/25/18 18:29 06/25/18 13:41 06/25/18 18:29 06/25/18 18:29 - Diagnostic Test Radiology reviewed: Image reviewed, Reports reviewed Discharge - Discharge Clinical Impression: Left knee pain Qualifiers: Chronicity: acute Qualified Code(s): M25.562 - Pain in left knee Condition: Stable Disposition: HOME, SELF-CARE Additional Instructions: SUSPECTED INTERNAL KNEE INJURY: The examiner of your injured knee suspects an internal injury to the cartilage or internal ligaments. This must be further investigated by an compensation specialist. The knee should be protected, ice packed, and elevated while awaiting your follow-up exam by the orthopedist. If there is severe swelling, severe pain, or any new symptoms while awaiting your exam, you should call the orthopedist. (If he/she is unavailable, call us or return for re-examination.) KNEE IMMOBILIZING SPLINT: The knee immobilizing splint will protect the injury while healing begins. This type of splint does not allow the knee to bend at all. No running or sports will be possible. If the splint allows painfree walking, it's giving adequate protection. If there is still significant pain, crutches may be needed as well. Don't do anything that hurts. Adjusted the splint, if necessary. The stiffeners on the sides are attached with Velcro, so they can be easily moved to adjust for thigh and calf size. If you need help with these adjustments, come back. You will lose muscle strength in the thigh while using this splint. The doctor will advise you if it's safe to do isometric knee exercises while you use it. USE OF CRUTCHES: The doctor has recommended that you not bear weight at this time. You will need to use crutches. Adjust the crutches so the tops come to about two inches under the armpit while you are standing upright. Use your hands -- not your armpits -- to support your weight. To get into a chair, support yourself with one crutch on the injured side. Hold the chair with the other hand, then lower yourself while putting all your weight on the good leg. Going up stairs is `good leg up, step up, then bring up crutches and bad leg.' Down stairs is `bad leg and crutches down, then bring good leg down.' If you develop numbness or swelling in an arm or hand, you are using the crutches incorrectly. Return if you are having any problems with the crutches. ICE & ELEVATION: Apply ice packs frequently against the painful area. Many different schedules are recommended, such as "20 minutes on, 20 minutes off" or "one hour ice, two hours rest." If you need to work, you may need to go longer between ice treatments. You should plan to have the area ice packed AT LEAST one-fourth of the time. The ice should be applied over the wrap, tape, or splint, or over a layer of cloth -- not directly against the skin. Some ice bags have a built-in cloth and can be put directly on the skin. Your injured part should be elevated as much as possible over the next 48 hours. Try to keep the injury above the level of the heart. Avoid use of the injured area. Elevation and rest will decrease the swelling. FOLLOW-UP CARE: If you have been referred to a physician for follow-up care, call the physicians office for an appointment as you were instructed or within the next two days. If you experience worsening or a significant change in your symptoms, notify the physician immediately or return to the Emergency Department at any time for re-evaluation. Forms: Elevated Blood Pressure, Return to Work Referrals: ISABEL FLORES MD [Primary Care Provider] - Follow up as needed GEMINI FIGUEROA MD [ACTIVE STAFF] - Follow up as needed
--- NOTE | 2018-06-25 16:43 | RADIOLOGY REPORT (SQ) ---
EXAM DESCRIPTION: KNEE LEFT 4 VIEW COMPLETED DATE/TIME: 06/25/2018 4:21 pm REASON FOR STUDY: pain and injury COMPARISON: None. NUMBER OF VIEWS: Four views. TECHNIQUE: AP, lateral, and both oblique radiographic images acquired of the left knee. LIMITATIONS: None. FINDINGS: MINERALIZATION: Normal. BONES: No acute fracture or dislocation. No worrisome bone lesions. JOINT: Small suprapatellar joint effusion. There is mild joint space narrowing and osteophyte format ion in the medial, lateral, and patellofemoral compartments. SOFT TISSUES: No soft tissue swelling. No radio-opaque foreign body. OTHER: No other significant finding. IMPRESSION: Small suprapatellar knee joint effusion. No acute fracture. TECHNICAL DOCUMENTATION: JOB ID: [id number] [employer]- All Rights Reserved Reading location - IP/workstation name: [email or web address]
[2018-06-25 18:34] VITALS: BP 134/77
--- NOTE | 2018-06-26 08:40 | XCELERA REPORT ---
[address] [facility] [address] Lower Extremity Venous Evaluation Procedure: Color flow and duplex imaging of the veins of the left lower extremity as well as the right Common Femoral vein. Right Sided Venous Evaluation The right common femoral vein is fully compressible. Spontaneous and phasic flow is present in the right common femoral vein. Left Sided Venous Evaluation Echolucent, non vascular mass 5 x 2 x 0.9 cm. mass in medial Popliteal fossa. Normal vessel filling wall to wall, compression and augmentation as well as Colour flow down to the infrageniculate veins. Interpretation Summary No duplex evidence of DVT or obstruction in the left lower extremity nor in the right Common Femoral vein. 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 Name: BONNY ASKEW Age: 62 yrs Gender: Female : 1955 Patient Status: Preadmit Patient Location: Study Date: 06/25/2018 03:36 PM Reason For Study: left lower leg sent by urgent care for dvt Ordering Physician: FARHANA JORDAN Performed By: Celena Rahman : FARHANA JORDAN > Peewee Kothari
== END 2018-06-25 18:34 | disposition home or self-care (01) ==
LOC: ER 13:00
DX: M25.562 Pain in left knee (principal); X50.0XXA Overexertion from strenuous movement or load, initial encounter; Y99.0 Civilian activity done for income or pay; E78.00 Pure hypercholesterolemia, unspecified; E11.22 Type 2 diabetes mellitus with diabetic chronic kidney disease; I12.9 Hypertensive chronic kidney disease with stage 1 through stage 4 chronic kidney disease, or unspecified chronic kidney disease; N18.3 Chronic kidney disease, stage 3 (moderate); Z87.891 Personal history of nicotine dependence; Z79.4 Long term (current) use of insulin
CPT/HCPCS: 99284; 93971 ×2; 82962; 73564; L1830

== ENCOUNTER 2018-12-14 08:03 | Emergency (ER) | payer BC, OTHER ==
[2018-12-14] MEDS ORDERED: ONDANSETRON HCL INJ/PF 4 MG/2 ML SDV IV ONE (09:38)
[2018-12-14] MEDS ORDERED: NORMAL SALINE 1000 ML 1,000 ML IV ONE (09:39)
--- NOTE | 2018-12-14 09:42 | ER Document Report ---
ED Medical Screen (RME) - General Chief Complaint: Weakness Stated Complaint: FATIGUE,RIGHT ARM WEAKNESS,NAUSEA Time Seen by Provider: 12/14/18 09:32 Primary Care Provider: ISABEL FLORES MD [Primary Care Provider] - Follow up as needed TRAVEL OUTSIDE OF THE [place] IN LAST 30 DAYS: No - HPI Notes: 12/14/18 09:39 Patient is a 63-year-old female with a history of hypertension and diabetes who presents complaining of feeling fatigued with a headache that began this morning. Patient states that she woke up with right arm feeling a little tingly as well. Patient states that she woke up around 5 AM today. Patient has been on doxycycline for the past week for [place] spotted fever. She has had decreased p.o. intake today. She is otherwise able to urinate normally. Patient states that she has had loose stools for the past few weeks. Denies fever, neck pain, URI, CP, SOB, Abd pain, dysuria, back pain, or rash. I have treated and performed a rapid initial assessment of this patient. A comprehensive ED assessment and evaluation of the patient, analysis of test results and completion of medical decision making process will be conducted by additional ED providers. PHYSICAL EXAMINATION: GENERAL: Well-appearing, well-nourished and in no acute distress. A&Ox4. Answers questions appropriately. Eyes: PERRLA, EOMI b/l. LUNGS: Breath sounds clear to auscultation bilaterally and equal. No wheezes rales or rhonchi. HEART: Regular rate and rhythm without murmurs, rubs, gallops. ABDOMEN: Soft, nondistended abdomen. No guarding, no rebound. Normal bowel sounds present. No CVA tenderness bilaterally. Grossly nontender (cannot elicit thorough abd exam w/o bed, however). MS: strength 5+/5 bilaterally. Extremities: No cyanosis, clubbing, or edema b/l. NEUROLOGICAL: Normal speech, normal gait. NIH 1(for mild dec sensation to sharp RUE vs LUE). Regular is grossly intact. PSYCH: Normal mood, normal affect. - Related Data Allergies/Adverse Reactions: No Known Allergies Allergy (Verified 12/14/18 08:12) Past Medical History - Social History Frequency of alcohol use: None Drug Abuse: None - Past Medical History Cardiac Medical History: Reports: Hx Hypercholesterolemia, Hx Hypertension Neurological Medical History: Denies: Hx Seizures Endocrine Medical History: Reports: Hx Diabetes Mellitus Type 2 - On Trulicity injection once a week. Says that she has lost 80 pounds. 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 Denies: Hx Peritoneal Dialysis GI Medical History: Reports: Hx Gastroesophageal Reflux Disease Musculoskeltal Medical History: Reports Hx Arthritis, Reports Hx Musculoskeletal Trauma Psychiatric Medical History: Reports: Hx Depression Past Surgical History: Reports: Hx Tonsillectomy. Denies: Hx Hysterectomy, Hx Mastectomy, Hx Open Heart Surgery, Hx Pacemaker - Immunizations Immunizations up to date: Yes Hx Diphtheria, Pertussis, Tetanus Vaccination: Yes Physical Exam - Vital signs Vitals: Temp Pulse Resp BP Pulse Ox 98.2 F 83 20 163/78 H 100 12/14/18 08:11 12/14/18 08:11 12/14/18 08:11 12/14/18 08:11 12/14/18 08:11 Course - Vital Signs Vital signs: Temp Pulse Resp BP Pulse Ox 98.2 F 83 20 163/78 H 100 12/14/18 08:11 12/14/18 08:11 12/14/18 08:11 12/14/18 08:11 12/14/18 08:11 Doctor's Discharge - Discharge Referrals: ISABEL FLORES MD [Primary Care Provider] - Follow up as needed
[2018-12-14 10:25] LABS: ABSOLUTE BASOPHILS # (AUTO) 0.1 10^3/uL (0.0-0.2); ABSOLUTE EOSINOPHILS # (AUTO) 0.1 10^3/uL (0.0-0.6); ABSOLUTE LYMPHOCYTES (AUTO) 2.8 10^3/uL (0.5-4.7); ABSOLUTE MONOCYTES (AUTO) 0.5 10^3/uL (0.1-1.4); ABSOLUTE NEUT (AUTO) 4.3 10^3/uL (1.7-8.2); BASOPHILS % (AUTO) 0.8 % (0-2); EOSINOPHILS % (AUTO) 1.5 % (0-6); HEMATOCRIT 43.4 % (36.0-47.0); HEMOGLOBIN 14.6 g/dL (12.0-15.5); LYMPHOCYTES % (AUTO) 36.1 % (13-45); MEAN CORPUSCULAR HEMOGLOBIN 29.1 pg (27.0-33.4); MEAN CORPUSCULAR HGB CONC 33.6 g/dL (32.0-36.0); MEAN CORPUSCULAR VOLUME 87 fl (80-97); MONOCYTES % (AUTO) 6.5 % (3-13); PLATELET COUNT 227 10^3/uL (150-450); RED BLOOD COUNT 5.01 10^6/uL (3.72-5.28); RED CELL DISTRIBUTION WIDTH 13.9 % (11.5-14.0); SEGMENTED NEUTROPHILS % (AUTO) 55.1 % (42-78); TOTAL CELLS COUNTED % (AUTO) 100 %; WHITE BLOOD COUNT 7.7 10^3/uL (4.0-10.5)
[2018-12-14 10:30] LABS: APPEARANCE,URINE CLOUDY; BILIRUBIN,URINE NEGATIVE (NEGATIVE); CALCIUM OXALATE CRYSTALS,URINE TOO NUMEROUS TO CNT /HPF; COLOR,URINE AMBER; GLUCOSE, URINE NEGATIVE (NEGATIVE); KETONES,URINE TRACE mg/dL (NEGATIVE); LEUKOCYTE ESTERASE,URINE SMALL (NEGATIVE); NITRITE,URINE NEGATIVE (NEGATIVE); PROTEIN,URINE 30 mg/dL (NEGATIVE); URINE SPECIFIC GRAVITY 1.033; UROBILINOGEN,URINE NEGATIVE mg/dL (<2.0)
[2018-12-14 10:31] LABS: INTERNATIONAL RATION (INR) 0.92; PROTHROMBIN TIME 12.8 SEC (11.4-15.4)
[2018-12-14 10:32] LABS: PARTIAL THROMBOPLASTIN TIME 30.5 SEC (23.5-35.8)
--- NOTE | 2018-12-14 10:36 | RADIOLOGY REPORT (SQ) ---
EXAM DESCRIPTION: CT HEAD WITHOUT COMPLETED DATE/TIME: 12/14/2018 10:26 am REASON FOR STUDY: rt arm tingling, ALBERTO COMPARISON: None. TECHNIQUE: Axial images acquired through the brain without intravenous contrast. Images reviewed wi th bone, brain and subdural windows. Additional sagittal and coronal reconstructions were generated. Images stored on PACS. All CT scanners at this facility use dose modulation, iterative reconstruction, and/or weight based d osing when appropriate to reduce radiation dose to as low as reasonably achievable (ALARA). [facility]: Dose Right [facility]: CareDose [facility]: Dose Right [facility]: Teradose 4D [facility]: Smart PlatformQ RADIATION DOSE: CT Rad equipment meets quality standard of care and radiation dose reduction techniq ues were employed. CTDIvol: 53.2 mGy. DLP: 1044 mGy-cm. mGy. LIMITATIONS: None. FINDINGS: VENTRICLES: Normal size and contour. CEREBRUM: No masses. No hemorrhage. No midline shift. No evidence for acute infarction. Normal gra y/white matter differentiation. No areas of low density in the white matter. CEREBELLUM: No masses. No hemorrhage. No alteration of density. No evidence for acute infarction. EXTRAAXIAL SPACES: No fluid collections. No masses. ORBITS AND GLOBE: No intra- or extraconal masses. Normal contour of globe without masses. CALVARIUM: No fracture. PARANASAL SINUSES: There is a small amount of fluid in the left maxillary sinus. SOFT TISSUES: No mass or hematoma. OTHER: No other significant finding. IMPRESSION: Mild left maxillary sinus disease with no acute intracranial imaging findings. EVIDENCE OF ACUTE STROKE: NO. COMMENT: Quality ID # [id number]: Final reports with documentation of one or more dose reduction techniques (e.g., Automated exposure control, adjustment of the mA and/or kV according to patient size, use of iterative reconstruction technique) TECHNICAL DOCUMENTATION: JOB ID: [id number] [employer]- All Rights Reserved Reading location - IP/workstation name: [email or web address]
[2018-12-14 10:51] LABS: ALANINE AMINOTRANSFERASE 23 U/L (9-52); ALBUMIN 4.4 g/dL (3.5-5.0); ALKALINE PHOSPHATASE 83 U/L (38-126); ANION GAP 7 (5-19); ASPARTATE AMINO TRANSFERASE 25 U/L (14-36); BILIRUBIN,DIRECT 0.4 mg/dL (0.0-0.4); BILIRUBIN,TOTAL 0.5 mg/dL (0.2-1.3); BLOOD UREA NITROGEN 20 mg/dL (7-20); CALCIUM 9.2 mg/dL (8.4-10.2); CARBON DIOXIDE 33 mmol/L (22-30); CHLORIDE 102 mmol/L (98-107); GLUCOSE 124 mg/dL (75-110); POTASSIUM 3.5 mmol/L (3.6-5.0); SODIUM 141.9 mmol/L (137-145); TOTAL PROTEIN 7.7 g/dL (6.3-8.2)
--- NOTE | 2018-12-14 11:57 | ER Document Report ---
ED General - General Chief Complaint: Weakness Stated Complaint: FATIGUE,RIGHT ARM WEAKNESS,NAUSEA Time Seen by Provider: 12/14/18 09:32 Primary Care Provider: ISABEL FLORES MD [Primary Care Provider] - Follow up as needed TRAVEL OUTSIDE OF THE [place] IN LAST 30 DAYS: No - HPI Notes: Patient is a 63-year-old female who presents to the emergency department for evaluation of "extreme fatigue." She went to see her doctor on December 03 with the same complaint. She had complained of headache at that time too. He did blood work, contacted her following Friday and told her that she had tested positive for [place] spotted fever. He had started her on doxycycline on that , as she stated that he said her story was "suspicious." The patient states that she had been having temperatures around 100 point 2 at night. She denies any nausea or vomiting. She states her head hurts all over. This is not the worst headache of her life. She states that she been having some days where she had been feeling improved. She states that today she just was not feeling horribly. She states she did have some tingling in her right arm. She states is been taking her antibiotics as prescribed. - Related Data Allergies/Adverse Reactions: No Known Allergies Allergy (Verified 12/14/18 08:12) Past Medical History - General Information source: Patient - Social History Smoking Status: Never Smoker Frequency of alcohol use: None Drug Abuse: None Family History: Reviewed & Not Pertinent Patient has suicidal ideation: No Patient has homicidal ideation: No - Past Medical History Cardiac Medical History: Reports: Hx Hypercholesterolemia, Hx Hypertension Neurological Medical History: Denies: Hx Seizures Endocrine Medical History: Reports: Hx Diabetes Mellitus Type 2 - On Trulicity injection once a week. Says that she has lost 80 pounds. 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 Denies: Hx Peritoneal Dialysis GI Medical History: Reports: Hx Gastroesophageal Reflux Disease Musculoskeletal Medical History: Reports Hx Arthritis - Unknown autoimmune disease, Reports Hx Musculoskeletal Trauma Psychiatric Medical History: Reports: Hx Depression Past Surgical History: Reports: Hx Tonsillectomy. Denies: Hx Hysterectomy, Hx Mastectomy, Hx Open Heart Surgery, Hx Pacemaker - Immunizations Immunizations up to date: Yes Hx Diphtheria, Pertussis, Tetanus Vaccination: Yes Review of Systems - Review of Systems Constitutional: See HPI EENT: No symptoms reported Cardiovascular: No symptoms reported Respiratory: No symptoms reported Gastrointestinal: No symptoms reported Genitourinary: No symptoms reported Musculoskeletal: No symptoms reported Skin: No symptoms reported Neurological/Psychological: See HPI Physical Exam - Vital signs Vitals: Temp Pulse Resp BP Pulse Ox 98.2 F 83 20 163/78 H 100 12/14/18 08:11 12/14/18 08:11 12/14/18 08:11 12/14/18 08:11 12/14/18 08:11 - Notes Notes: Vital signs reviewed, please refer to chart. Head is normocephalic, atraumatic. Pupils equal round, reactive to light. Neck is supple without meningismus. Heart is regular rate and rhythm. Lungs are clear to auscultation bilaterally. Abdomen is soft, nontender, normoactive bowel sounds throughout. Extremities without cyanosis, clubbing. Posterior calves are nontender. Peripheral pulses are equal. Skin is warm and dry. Patient is awake, alert, oriented x3. Cranial nerves II - XII are grossly intact without focal neurological deficits. Strength is plus 5 out of 5 bilateral lower extremities. Sensation is intact. Reflexes symmetrical. Intact [id number], rapid alternating movements, [id number]. Course - Re-evaluation Re-evalutation: 12/14/18 11:54 Patient presents emergency department for evaluation. She was initially seen through triage, had laboratory investigations and imaging as ordered. Laboratory vesication's failed to reveal any significant abnormality. Her physical exam here showed no significant abnormality. I did offer the patient treatment with anti-inflammatory and IV fluids for her headache, IV doxycycline. She refused. She could not give me a good reason for this, but states that "I am not really aching, and I already have that antibiotic." I explained that doxycycline was the medication of choice for [place] spotted fever. At this time she has no signs of encephalitis or meningitis. Her exam is entirely unremarkable. Again she refused all other interventions. We will have her follow-up with her primary care provider this week, she is to return to the ED with worsening or new concerning symptoms. - Vital Signs Vital signs: Temp Pulse Resp BP Pulse Ox 98.2 F 83 20 163/78 H 100 12/14/18 08:11 12/14/18 08:11 12/14/18 08:11 12/14/18 08:11 12/14/18 08:11 - Laboratory Result Diagrams: 12/14/18 10:05 12/14/18 10:05 Laboratory results interpreted by me: 12/14/18 12/14/18 10:05 10:05 Potassium 3.5 L Carbon Dioxide 33 H Glucose 124 H Urine Protein 30 H Urine Ketones TRACE H Ur Leukocyte Esterase SMALL H Urine Ascorbic Acid 40 H - Diagnostic Test Radiology reviewed: Reports reviewed Radiology results interpreted by me: 12/14/18 11:[address] 12/14/18 09:38 IMPRESSION: Mild left maxillary sinus disease with no acute intracranial imaging findings. EVIDENCE OF ACUTE STROKE: NO. Discharge - Discharge Clinical Impression: RMSF ([place] spotted fever) Fatigue Qualifiers: Encounter type: initial encounter Condition: Stable Disposition: HOME, SELF-CARE Additional Instructions: Continue to take your antibiotics as prescribed. Follow-up with your doctor this week. If you develop worsening or new concerning symptoms of any sort, return immediately to the emergency department for reevaluation. Forms: Elevated Blood Pressure Referrals: ISABEL FLORES MD [Primary Care Provider] - Follow up as needed
[2018-12-14 12:28] VITALS: BP 181/81
== END 2018-12-14 12:31 | disposition home or self-care (01) ==
LOC: ER 08:03
DX: A77.0 Spotted fever due to Rickettsia rickettsii (principal); J32.0 Chronic maxillary sinusitis; R53.83 Other fatigue; R51 Headache; R20.2 Paresthesia of skin; I10 Essential (primary) hypertension; E11.9 Type 2 diabetes mellitus without complications
CPT/HCPCS: 99285; 96361; 96374; 36415; 85025; 85610; 85730; 80053; 81001; 70450; J2405; J7030

== ENCOUNTER → 2019-03-12 | Outpatient (CLI) | payer BC ==
--- NOTE | 2019-03-12 12:17 | RADIOLOGY REPORT (SQ) ---
EXAM DESCRIPTION: U/S ABDOMEN LTD W/DOPPLER COMPLETED DATE/TIME: 03/12/2019 12:08 pm REASON FOR STUDY: R11.14 BILIOUS VOMITING R11.14 BILIOUS VOMITING COMPARISON: None. TECHNIQUE: Dynamic and static grayscale images acquired of the abdomen and recorded on PACS. Additio nal selected color Doppler and spectral images recorded. LIMITATIONS: None. FINDINGS: PANCREAS: No masses. Visualized pancreatic duct normal caliber. LIVER: Normal size Echo texture normal. No focal masses. LIVER VASCULATURE: Normal directional flow of the main portal vein and hepatic veins. GALLBLADDER: No stones. Normal wall thickness. No pericholecystic fluid. ULTRASOUND-DETECTED AGUILAR'S SIGN: Positive. INTRAHEPATIC DUCTS AND COMMON DUCT: CBD and intrahepatic ducts normal caliber. No filling defects. INFERIOR VENA CAVA: Normal flow. AORTA: No aneurysm. RIGHT KIDNEY: Normal size. Normal echogenicity. No solid or suspicious masses. No hydronephros is. No calcifications. PERITONEAL AND RIGHT PLEURAL SPACE: No ascites or effusions. OTHER: No other significant findings. IMPRESSION: Positive sonographic Aguilar's sign otherwise negative right upper quadrant ultrasound. TECHNICAL DOCUMENTATION: JOB ID: [id number] [employer]- All Rights Reserved Reading location - IP/workstation name: [email or web address]
--- NOTE | 2019-03-12 14:30 | RADIOLOGY REPORT (SQ) ---
EXAM DESCRIPTION: NM HIDA SCAN WITH CCK COMPLETED DATE/TIME: 03/12/2019 2:19 pm REASON FOR STUDY: R11.14 BILIOUS VOMITING R11.14 BILIOUS VOMITING COMPARISON: Abdominal ultrasound done earlier the same day. RADIONUCLIDE AND DOSE: DOSAGE RADIONUCLIDE: 5.04 millicuries Tc99m Mebrofenin. DOSAGE CCK: 2.2 micrograms. DOSAGE MORPHINE: Not required. The route of agent administration: Intravenous TECHNIQUE: Serial imaging right upper quadrant up to 60 minutes following injection of radionuclide. CCK injected after gallbladder visualized. LIMITATIONS: None. FINDINGS: LIVER: Normal visualization without areas of photopenia. INTRA AND EXTRAHEPATIC BILE DUCTS: Normal accumulation of activity. GALLBLADDER: Normal visualization. Calculated Ejection Fraction of 1%. Below the normal value of 35% or greater. PHYSICAL RESPONSE: Patients presenting complaint was reproduced. OTHER: No other significant finding. IMPRESSION: LOW GALLBLADDER EJECTION FRACTION. EVIDENCE FOR BILIARY DYSKINESIS. NO CYSTIC OR COMMO N DUCT OBSTRUCTION. TECHNICAL DOCUMENTATION: JOB ID: [id number] [employer]- All Rights Reserved Reading location - IP/workstation name: [email or web address]
== END ==
LOC: RAD 10:56
PROVIDERS: ATTEND Internal Medicine Gastroenterology
DX: K82.8 Other specified diseases of gallbladder (principal); R11.14 Bilious vomiting
CPT/HCPCS: 76705; 93976; 78227; J2805; A9537; Q9969

== ENCOUNTER 2019-03-15 09:59 | Day surgery (SDC) | payer BC ==
[~2019-03-15 09:59] MED LIST: LIDOCAINE 2% INJ (20 MG/ML) 20 ML MDV ONE; PROPOFOL INJ 200 MG/20 ML VIAL IV ONE
[2019-03-15 12:22] VITALS: BP 140/72
--- NOTE | 2019-03-15 14:00 | Operative Report ---
Operative Report DATE OF SURGERY: 03/15/19 Operative Report: The risks, benefits and alternatives of the procedure including the risk of bleeding, perforation requiring surgery have been explained to the patient in detail and informed consent has been obtained. Patient is placed in a left, lateral decubital position. Timeout was called. Propofol medication is administered. Rectal examination is done which did not reveal any masses, tears or fissures. An Olympus videoscope was introduced into the patient's rectum. The scope was then carefully advanced all the way to the cecum. The cecum was identified by the usual anatomical landmarks of the ileocecal valve as well as the appendiceal office. Photodocumentation is obtained. The scope was then sequentially pulled back via the various segments of the colon including the ascending colon, hepatic flexure, transverse colon, splenic flexure, descending colon and finally into the rectosigmoid portions of the colon. Retroflexion maneuvers performed. The risks benefits and alternatives of the procedure explained to the patient in detail and informed consent is obtained.A GIF Olympus video scope was inserted into the patient's mouth and hypopharynx, the esophagus is identified intubated and insufflated, the scope was then advanced through the esophagus stomach and duodenum, retroflexion maneuver is done ,the esophagus stomach and first and second portions of the duodenum examined. PREOPERATIVE DIAGNOSIS: Change in bowel habits. Nausea vomiting POSTOPERATIVE DIAGNOSIS: Right side colon Inflammation status post biopsy. Internal hemorrhoids. Esophagitis. Gastritis status post biopsy rule out H elicobacter pylori OPERATION: Colonoscopy with biopsy. EGD with biopsy SURGEON: ANNITA HICKEY ANESTHESIA: LMAC TISSUE REMOVED OR ALTERED: As noted above. COMPLICATIONS: None. ESTIMATED BLOOD LOSS: None. INTRAOPERATIVE FINDINGS: As noted above. PROCEDURE: Patient tolerated the procedure well. No immediate postprocedure complications are noted. Patient is discharged in good condition. Discharge date 03/15/2019. Discharge diet: Regular. Discharge activity: Regular. 2 to 3-week follow-up to discuss findings. Patient is instructed to call the office or proceed to the emergency room should there be any further problems or questions. Wait on the pathology.
== END 2019-03-15 12:20 | disposition home or self-care (01) ==
LOC: END 09:59
PROVIDERS: ATTEND Internal Medicine Gastroenterology
DX: K29.50 Unspecified chronic gastritis without bleeding (principal); K52.831 Collagenous colitis; K21.9 Gastro-esophageal reflux disease without esophagitis; I10 Essential (primary) hypertension; E11.9 Type 2 diabetes mellitus without complications; E78.00 Pure hypercholesterolemia, unspecified; Z79.899 Other long term (current) drug therapy; E66.9 Obesity, unspecified; Z68.41 Body mass index [BMI] 40.0-44.9, adult
CPT/HCPCS: 43239; 45380; 82962; 88305 ×2; J3490; J2704; 813

== ENCOUNTER → 2019-03-31 | Day surgery (SDC) | payer BC ==
[~2019-03-31] MED LIST changes: +ACETAMINOPHEN 325 MG TABLET PO PRN; +BUPIVACAINE HCL 0.25 % INJ/PF (2.5 MG/1 ML) 30 ML VIAL INJ ONE; +BUPIVACAINE HCL 0.25 % INJ/PF (2.5 MG/1 ML) 30 ML VIAL ONE; +CEFAZOLIN SODIUM 1 GM in DEXTROSE 5%-WATER 50 ML IV PRN; +DEXAMETHASONE SOD PHOSPHATE INJ 4 MG/1 ML VIAL ONE; +DIPHENHYDRAMINE HCL 50 MG/ML VIAL IV PRN; +FAMOTIDINE INJ/PF 20 MG/2 ML SDV IV ONE; +FENTANYL CITRATE INJ/PF 100 MCG/2 ML AMPUL IV PRN; +FENTANYL CITRATE INJ/PF 100 MCG/2 ML AMPUL ONE; +KETOROLAC TROMETHAMINE 60 MG/2 ML SDV ONE; -LIDOCAINE 2% INJ (20 MG/ML) 20 ML MDV ONE; +MEPERIDINE HCL/PF INJ 25 MG/1 ML DISP.SYRIN IV PRN; +METOCLOPRAMIDE HCL INJ/PF 10 MG/2 ML SDV ONE; +MIDAZOLAM 2 MG/2 ML INJ ONE; +MORPHINE SULFATE 10 MG/ML INJ IV PRN; +ONDANSETRON HCL INJ/PF 4 MG/2 ML SDV IV PRN; +ONDANSETRON HCL INJ/PF 4 MG/2 ML SDV ONE; +OXYCODONE-ACETAMINOPHEN 5-325 MG TABLET PO PRN; +PROMETHAZINE HCL INJ 25 MG/1 ML VIAL IV PRN; +RINGERS SOLUTION,LACTATED 1,000 ML IV PRN; +ROCURONIUM BROMIDE INJ 50 MG/5 ML VIAL IV ONE; +SUCCINYLCHOLINE CHLORIDE INJ 200 MG/10 ML VIAL ONE
[2019-03-31 12:44] LABS: HEMATOCRIT 40.4 % (36.0-47.0); HEMOGLOBIN 13.7 g/dL (12.0-15.5); MEAN CORPUSCULAR HEMOGLOBIN 29.4 pg (27.0-33.4); MEAN CORPUSCULAR VOLUME 86 fl (80-97); PLATELET COUNT 223 10^3/uL (150-450); RED BLOOD COUNT 4.68 10^6/uL (3.72-5.28); RED CELL DISTRIBUTION WIDTH 13.5 % (11.5-14.0); WHITE BLOOD COUNT 7.6 10^3/uL (4.0-10.5)
[2019-03-31 13:09] LABS: ALBUMIN 4.2 g/dL (3.5-5.0); ALKALINE PHOSPHATASE 69 U/L (38-126); AMYLASE 130 U/L (30-110); ANION GAP 10 (5-19); ASPARTATE AMINO TRANSFERASE 25 U/L (14-36); BILIRUBIN,DIRECT 0.1 mg/dL (0.0-0.4); BILIRUBIN,TOTAL 0.7 mg/dL (0.2-1.3); BLOOD UREA NITROGEN 20 mg/dL (7-20); CALCIUM 9.5 mg/dL (8.4-10.2); CARBON DIOXIDE 28 mmol/L (22-30); CHLORIDE 101 mmol/L (98-107); GLUCOSE 105 mg/dL (75-110); POTASSIUM 3.4 mmol/L (3.6-5.0); TOTAL PROTEIN 7.1 g/dL (6.3-8.2)
--- NOTE | 2019-03-31 14:44 | Operative Report ---
Operative Report DATE OF SURGERY: 03/31/19 PREOPERATIVE DIAGNOSIS: Biliary dyskinesia POSTOPERATIVE DIAGNOSIS: Same OPERATION: Laparoscopic cholecystectomy SURGEON: ALIYAH GRANDE 1ST DIRECTOR OPERATIONS: FIDENCIO CLAYTON ANESTHESIA: GA TISSUE REMOVED OR ALTERED: one GB COMPLICATIONS: none ESTIMATED BLOOD LOSS: scant PROCEDURE: After obtaining informed consent, the patient was taken to the operating room. General Anesthesia was induced; the arms were extended, and the abdomen was exposed, and prepped and draped in a sterile fashion. Instrumentation was set up for laparoscopic cholecystectomy. Surgical plan and surgical timeout were conducted. A vertical incision was made above the umbilicus, and a verres needle was inserted uneventfully into the peritoneal cavity. Pneumoperitoneum was established. The verres needle was removed and a 5 mm trocar was inserted and a 5 mm flexible laparoscope was inserted. Visualization of the peritoneal cavity confirmed safe uneventful entry. Under direct visualization 3 additional 5 mm ports were established, one in the subxiphoid position and second in the subcostal position. Visualization of the hepatobiliary anatomy revealed no anatomic variations. A grasper was placed on the fundus of the gallbladder and the gallbladder is elev ated over the right surface of the liver; a second grasper was used to grasp the infundibulum of the gallbladder. The neck of the gallbladder and junction with the cystic duct was dissected out. The Cystic artery was in its usual location medial and cephalad to the cystic duct. The cystic artery was surrounded with a right angle clamp, clipped twice proximally and divided with laparoscopic scis sors. We now opened the triangle of [place] by dividing the peritoneal reflection on both the medial and lateral sides of the cystic duct infundibular junction. The critical view was obtained. We now milked the cystic duct of any possible stones, clipped the cystic duct approximately 2 times proximally and once distally distally and divided with scissors. The gallbladder was now removed from the undersurface of the liver using hook cautery dissection. Graspers were repositioned and the gallbladder was removed uneventfully from the abdominal cavity through the super umbilical port site inc ision. The specimen was examined, then passed off to pathology for permanent analysis. We returned to the peritoneal cavity check for bleeding, and evidence of bile leak, and there was none. We Confirmed satisfactory placement of clips on cystic duct and cystic artery were secured . At this point we felt the operation was complete. The subcutaneous tissue was then anesthetized with quarter percent Marcaine Sponge and needle counts are correct. All ports removed under direct visualization pneumoperitoneum evacuated, and 5 mm port wounds closed with 3-0 Vicryl suture, benzoin and Steri-Strips. The patient was extubated, and taken to the recovery room in stable condition. The physician preschool assistant, Ms. Lyman, provided assistance during this case by: Assisting and port insertion, retracting tissue, instillation of local anesthesia and closure of skin incisions.
--- NOTE | 2019-03-31 14:45 | Discharge Summary ---
Discharge Summary (SDC) - Discharge Final Diagnosis: Biliary dyskinesia Date of Surgery: 03/31/19 Discharge Date: 03/31/19 Condition: Good Treatment or Instructions: Resume preoperative medications, diet, activity; take Motrin Tylenol. Pain; prescription on chart; return to [facility] in 1 to 2 weeks for follow-up Referrals: ISABEL FLORES MD [Primary Care Provider] - Discharge Activity: Activity As Tolerated Home Care Assistance: None Needed Report the Following to Your Physician Immediately: Shortness of Breath, Increase in Pain, Fever over 101 Degrees
[2019-03-31 17:15] VITALS: BP 131/64
--- NOTE | 2019-03-31 17:43 | EKG REPORT ---
SEVERITY:- BORDERLINE ECG - SINUS RHYTHM LVH BY VOLTAGE EARLY PRECORDIAL TRANSITION : Confirmed by: Quinton Martin MD 31-Mar-2019 17:43:21
== END ==
LOC: OROUT 11:32
PROVIDERS: ATTEND Surgery
DX: K81.1 Chronic cholecystitis (principal); E11.9 Type 2 diabetes mellitus without complications; I10 Essential (primary) hypertension; E78.00 Pure hypercholesterolemia, unspecified; Z79.899 Other long term (current) drug therapy; E66.9 Obesity, unspecified; Z68.38 Body mass index [BMI] 38.0-38.9, adult
CPT/HCPCS: 36415; 82962; 82150; 85027; 80076; 80048; 88304 ×2; 93005; 93010; 47562; J2250; J0690; J3490; J1100; J1885; J3010; J2765; J0330; J2405; J7060; J2704; S0028; 790

== ENCOUNTER 2019-12-01 16:23 | Emergency (ER) | payer BC, MEDICARE ==
--- NOTE | 2019-12-01 18:06 | ER Document Report ---
ED General - General Chief Complaint: General Weakness Stated Complaint: WEAKNESS Time Seen by Provider: 12/01/19 17:31 Primary Care Provider: ISABEL FLORES MD [Primary Care Provider] - Follow up as needed Mode of Arrival: Ambulatory Information source: Patient TRAVEL OUTSIDE OF THE [place] IN LAST 30 DAYS: No - HPI Onset: Other - over the last 1-2 weeks Onset/Duration: Gradual Quality of pain: Achy Severity: Moderate Pain Level: 2 Associated symptoms: Body/muscle aches, Weakness, Other - fatigue Exacerbated by: Denies Relieved by: Denies Similar symptoms previously: Yes - when she had [place] and when she had RMSF Recently seen / treated by doctor: No Notes: 63 year old female with a history of HTN, HLD, DM, GERD, CKD, Arthritis, Depression here in the ER for 1-2 weeks of generalized weakness and fatigue. The patient says she has not been working over the last few weeks and she just feels exhausted. The patient has been having trouble getting in to see her PCP and o ther Specialists (she is following up with Orthopedics for management of her left knee arthritis) due to the recent pandemic and due to recent insurance changes (switched from [employer] to Medicare). The patient denies recent fevers, chills, sweats, nausea, vomiting, chest pain, abdominal pain, shortness of breath, urinary symptoms. The patient says she has chronic diarrhea but that is not new for her. The patient says she has had [place] and RMSF before and she has felt somewhat similar to those illnesses. - Related Data Allergies/Adverse Reactions: No Known Allergies Allergy (Verified 12/01/19 17:47) Home Medications: Hydroxizine, duloxetine, losartan Past Medical History - General Information source: Patient - Social History Smoking Status: Former Smoker Frequency of alcohol use: None Drug Abuse: None Family History: Reviewed & Not Pertinent Patient has suicidal ideation: No Patient has homicidal ideation: No - Past Medical History Cardiac Medical History: Reports: Hx Hypercholesterolemia, Hx Hypertension Denies: Hx Coronary Artery Disease, Hx Heart Attack Pulmonary Medical History: Denies: Hx Asthma, Hx Bronchitis, Hx COPD, Hx Pneumonia Neurological Medical History: Denies: Hx Cerebrovascular Accident, Hx Seizures Endocrine Medical History: Reports: Hx Diabetes Mellitus Type 2 - On Trulicity injection once a week. Says that she has lost 80 pounds. 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 Denies: Hx Peritoneal Dialysis GI Medical History: Reports: Hx Gastroesophageal Reflux Disease Musculoskeletal Medical History: Reports Hx Arthritis - AUTO IMMUNE - , Reports Hx Musculoskeletal Trauma Psychiatric Medical History: Reports: Hx Depression Past Surgical History: Reports: Hx Tonsillectomy. Denies: Hx Hysterectomy, Hx Mastectomy, Hx Open Heart Surgery, Hx Pacemaker - Immunizations Immunizations up to date: Yes Hx Diphtheria, Pertussis, Tetanus Vaccination: Yes Review of Systems - Review of Systems Constitutional: Weakness, Weight gain EENT: No symptoms reported Cardiovascular: No symptoms reported Respiratory: No symptoms reported Gastrointestinal: No symptoms reported Genitourinary: No symptoms reported Female Genitourinary: No symptoms reported Musculoskeletal: Other - body aches Skin: No symptoms reported Hematologic/Lymphatic: No symptoms reported Neurological/Psychological: No symptoms reported -: Yes All other systems reviewed and negative Physical Exam - Vital signs Vitals: Temp Pulse Resp BP Pulse Ox 98.5 F 80 18 162/78 H 97 12/01/19 17:47 12/01/19 17:47 12/01/19 17:47 12/01/19 17:47 12/01/19 17:47 - Notes Notes: GENERAL: Well-appearing, well-nourished and in no acute distress. HEAD: Atraumatic, normocephalic. EYES: Pupils equal round and reactive to light, extraocular movements intact, sclera anicteric, conjunctiva are normal. ENT: External ears normal, nares patent, oropharynx clear without exudates. Moist mucous membranes. NECK: Normal range of motion, supple without lymphadenopathy or JVD. LUNGS: Breath sounds clear to auscultation bilaterally and equal. No wheezes rales or rhonchi. HEART: Regular rate and rhythm without murmurs, rubs or gallops. ABDOMEN: Soft, nontender, normoactive bowel sounds. No guarding, no rebound. No masses appreciated. EXTREMITIES: Normal range of motion, no pitting or edema. No clubbing or cyanosis. NEUROLOGICAL: Cranial nerves II through XII grossly intact. Normal speech, normal gait. PSYCH: Normal mood, normal affect. SKIN: Warm, Dry, normal turgor, no rashes or lesions noted. Course - Re-evaluation Re-evalutation: 12/01/19 20:35 The patient is here for weakness/fatigue. The patient had unremarkable labs including a CBC, CMP, Mg, TSH, CPK, Troponin except for a slightly elevated blood sugar of 203. Patient was given IV fluids for this. Patient told she should follow up with her PCP for further work up of her fatigue such as vitamin deficiencies, sleep apnea and other causes. - Vital Signs Vital signs: Temp Pulse Resp BP Pulse Ox 98.5 F 82 18 162/77 H 97 12/01/19 17:47 12/01/19 17:56 12/01/19 17:56 12/01/19 17:56 12/01/19 17:56 - Laboratory Result Diagrams: 12/01/19 17:44 12/01/19 17:44 Laboratory results interpreted by me: 12/01/19 12/01/19 17:44 18:27 Sodium 136.3 L Carbon Dioxide 31 H Glucose 203 H Urine Blood SMALL H Ur Leukocyte Esterase TRACE H - EKG Interpretation by Nc EKG shows normal: Sinus rhythm Rate: Normal Rhythm: NSR [place]/QRS: Left axis deviation When compared to previous EKG there are: No significant change Additional EKG results interpreted by me: 12/01/19 18:20 LVH, q waves in III, aVF Discharge - Discharge Clinical Impression: Weakness, Hyperglycemia Fatigue Qualifiers: Fatigue type: unspecified Qualified Code(s): R53.83 - Other fatigue Condition: Stable Disposition: HOME, SELF-CARE Instructions: Weakness ([facility]), Fatigue ([facility]) Additional Instructions: Drink plenty of fluids in the days to come. Follow up with a primary care doctor for further work up of your fatigue/weakness. You had blood work in the ER inclu ding a CBC, CMP, Mg, TSH, Troponin which was all unremarkable except for a blood glucose of 203 (elevated). There are many other causes of fatigue/weakness which cannot be worked up in the ER such as vitamin deficiencies and sleep apnea to name a few so make sure to follow up. Referrals: ISABEL FLORES MD [Primary Care Provider] - Follow up as needed
[2019-12-01 18:26] LABS: ABSOLUTE BASOPHILS # (AUTO) 0.1 10^3/uL (0.0-0.2); ABSOLUTE EOSINOPHILS # (AUTO) 0.4 10^3/uL (0.0-0.6); ABSOLUTE LYMPHOCYTES (AUTO) 2.6 10^3/uL (0.5-4.7); ABSOLUTE MONOCYTES (AUTO) 0.5 10^3/uL (0.1-1.4); ABSOLUTE NEUT (AUTO) 3.1 10^3/uL (1.7-8.2); BASOPHILS % (AUTO) 0.8 % (0-2); HEMATOCRIT 44.1 % (36.0-47.0); HEMOGLOBIN 14.7 g/dL (12.0-15.5); LYMPHOCYTES % (AUTO) 38.8 % (13-45); MEAN CORPUSCULAR HEMOGLOBIN 29.1 pg (27.0-33.4); MEAN CORPUSCULAR HGB CONC 33.3 g/dL (32.0-36.0); MEAN CORPUSCULAR VOLUME 87 fl (80-97); MONOCYTES % (AUTO) 7.6 % (3-13); PLATELET COUNT 249 10^3/uL (150-450); RED BLOOD COUNT 5.04 10^6/uL (3.72-5.28); RED CELL DISTRIBUTION WIDTH 13.9 % (11.5-14.0); SEGMENTED NEUTROPHILS % (AUTO) 46.8 % (42-78); TOTAL CELLS COUNTED % (AUTO) 100 %; WHITE BLOOD COUNT 6.7 10^3/uL (4.0-10.5)
[2019-12-01 18:31] LABS: ALBUMIN 4.3 g/dL (3.5-5.0); ALKALINE PHOSPHATASE 117 U/L (38-126); ANION GAP 5 (5-19); ASPARTATE AMINO TRANSFERASE 26 U/L (14-36); BILIRUBIN,TOTAL 0.4 mg/dL (0.2-1.3); BLOOD UREA NITROGEN 13 mg/dL (7-20); CALCIUM 9.4 mg/dL (8.4-10.2); CARBON DIOXIDE 31 mmol/L (22-30); CHLORIDE 100 mmol/L (98-107); CREATINE KINASE 118 U/L (30-135); GLUCOSE 203 mg/dL (75-110); POTASSIUM 3.7 mmol/L (3.6-5.0); TOTAL PROTEIN 7.3 g/dL (6.3-8.2)
[2019-12-01 18:43] LABS: CREATINE KINASE MB 1.56 ng/mL (<4.55)
[2019-12-01 18:45] LABS: TROPONIN I < 0.012 ng/mL
[2019-12-01 18:47] LABS: APPEARANCE,URINE CLEAR; BILIRUBIN,URINE NEGATIVE (NEGATIVE); COLOR,URINE YELLOW; GLUCOSE, URINE NEGATIVE (NEGATIVE); KETONES,URINE NEGATIVE (NEGATIVE); LEUKOCYTE ESTERASE,URINE TRACE (NEGATIVE); NITRITE,URINE NEGATIVE (NEGATIVE); PROTEIN,URINE NEGATIVE (NEGATIVE); URINE SPECIFIC GRAVITY 1.019; UROBILINOGEN,URINE NEGATIVE mg/dL (<2.0)
[2019-12-01] MEDS ORDERED: NORMAL SALINE 1000 ML 1,000 ML IV ONE (19:02)
[2019-12-01 21:00] VITALS: BP 152/77
--- NOTE | 2019-12-02 08:01 | EKG REPORT ---
SEVERITY:- BORDERLINE ECG - SINUS RHYTHM LVH BY VOLTAGE CONSIDER ANTERIOR INFARCT : Confirmed by: Evette Spann MD 02-Dec-2019 08:00:54
== END 2019-12-01 21:16 | disposition home or self-care (01) ==
LOC: ER 16:23
DX: E11.65 Type 2 diabetes mellitus with hyperglycemia (principal); R53.1 Weakness; R53.83 Other fatigue; M79.10 Myalgia, unspecified site; R63.5 Abnormal weight gain; I10 Essential (primary) hypertension; M17.12 Unilateral primary osteoarthritis, left knee; K52.9 Noninfective gastroenteritis and colitis, unspecified; F32.9 Major depressive disorder, single episode, unspecified; Z79.899 Other long term (current) drug therapy
CPT/HCPCS: 93005; 99284; 96360; 36415; 82553; 82550; 83735; 84443; 85025; 80053; 81001; 84484; 93010; J7030

== ENCOUNTER → 2020-02-15 | Outpatient (CLI) | payer OTHER ==
[2020-02-15 15:10] LABS: ABSOLUTE BASOPHILS # (AUTO) 0.1 10^3/uL (0.0-0.2); ABSOLUTE EOSINOPHILS # (AUTO) 0.2 10^3/uL (0.0-0.6); ABSOLUTE LYMPHOCYTES (AUTO) 2.4 10^3/uL (0.5-4.7); ABSOLUTE MONOCYTES (AUTO) 0.6 10^3/uL (0.1-1.4); BASOPHILS % (AUTO) 0.9 % (0-2); EOSINOPHILS % (AUTO) 2.2 % (0-6); HEMATOCRIT 46.4 % (36.0-47.0); HEMOGLOBIN 15.6 g/dL (12.0-15.5); LYMPHOCYTES % (AUTO) 33.5 % (13-45); MEAN CORPUSCULAR HEMOGLOBIN 29.5 pg (27.0-33.4); MEAN CORPUSCULAR HGB CONC 33.7 g/dL (32.0-36.0); MEAN CORPUSCULAR VOLUME 88 fl (80-97); MONOCYTES % (AUTO) 8.2 % (3-13); PLATELET COUNT 297 10^3/uL (150-450); RED CELL DISTRIBUTION WIDTH 14.2 % (11.5-14.0); SEGMENTED NEUTROPHILS % (AUTO) 55.2 % (42-78); TOTAL CELLS COUNTED % (AUTO) 100 %; WHITE BLOOD COUNT 7.3 10^3/uL (4.0-10.5)
[2020-02-15 15:28] LABS: APPEARANCE,URINE SLIGHTLY-CLOUDY; BILIRUBIN,URINE NEGATIVE (NEGATIVE); GLUCOSE, URINE NEGATIVE (NEGATIVE); KETONES,URINE NEGATIVE (NEGATIVE); LEUKOCYTE ESTERASE,URINE SMALL (NEGATIVE); NITRITE,URINE NEGATIVE (NEGATIVE); PROTEIN,URINE 30 mg/dL (NEGATIVE); URINE SPECIFIC GRAVITY 1.032; UROBILINOGEN,URINE NEGATIVE mg/dL (<2.0)
--- NOTE | 2020-02-15 15:28 | RADIOLOGY REPORT (SQ) ---
EXAM DESCRIPTION: CHEST PA/LATERAL IMAGES COMPLETED DATE/TIME: 02/15/2020 2:57 pm REASON FOR STUDY: PRE-OP COMPARISON: None. EXAM PARAMETERS: NUMBER OF VIEWS: two views TECHNIQUE: Digital Frontal and Lateral radiographic views of the chest acquired. RADIATION DOSE: NA LIMITATIONS: none FINDINGS: LUNGS AND PLEURA: No opacities, masses or pneumothorax. No pleural effusion. MEDIASTINUM AND HILAR STRUCTURES: No masses or contour abnormalities. HEART AND VASCULAR STRUCTURES: Heart normal size. No evidence for failure. BONES: No acute findings. HARDWARE: None in the chest. OTHER: No other significant finding. IMPRESSION: 1. NO SIGNIFICANT RADIOGRAPHIC FINDING IN THE CHEST. TECHNICAL DOCUMENTATION: JOB ID: [id number] 2010 [employer]- All Rights Reserved Reading location - IP/workstation name: [email or web address]
[2020-02-15 15:30] LABS: ANION GAP 12 (5-19); BLOOD UREA NITROGEN 23 mg/dL (7-20); CARBON DIOXIDE 28 mmol/L (22-30); CHLORIDE 100 mmol/L (98-107); GLUCOSE 158 mg/dL (75-110); POTASSIUM 3.4 mmol/L (3.6-5.0)
[2020-02-15 15:31] LABS: COLOR,URINE DARK YELLOW
--- NOTE | 2020-02-15 17:08 | EKG REPORT ---
SEVERITY:- ABNORMAL ECG - SINUS RHYTHM LEFT AXIS DEVIATION PROBABLE LVH WITH SECONDARY REPOL ABNRM CONSIDER ANTERIOR INFARCT : Confirmed by: Evette Spann MD 15-Feb-2020 17:07:50
== END ==
LOC: OD 14:24
PROVIDERS: ATTEND Orthopaedic Surgery
DX: Z01.810 Encounter for preprocedural cardiovascular examination (principal); Z01.811 Encounter for preprocedural respiratory examination; Z01.812 Encounter for preprocedural laboratory examination; M17.12 Unilateral primary osteoarthritis, left knee; E11.9 Type 2 diabetes mellitus without complications
CPT/HCPCS: 36415; 71046; 80048; 81001; 83036; 85025; 93005; 93010

== ENCOUNTER 2020-03-13 08:16 | Observation (INO) | payer OTHER ==
[~2020-03-13 08:16] MED LIST changes: -ACETAMINOPHEN 325 MG TABLET PO PRN; -BUPIVACAINE HCL 0.25 % INJ/PF (2.5 MG/1 ML) 30 ML VIAL INJ ONE; -BUPIVACAINE HCL 0.25 % INJ/PF (2.5 MG/1 ML) 30 ML VIAL ONE; +BUPIVACAINE INJ/PF LIPOSOME/PF 266 MG/20 ML SDV INJ PRN; +CEFAZOLIN INJ 1 GM VIAL IV PRN; -CEFAZOLIN SODIUM 1 GM in DEXTROSE 5%-WATER 50 ML IV PRN; -DEXAMETHASONE SOD PHOSPHATE INJ 4 MG/1 ML VIAL ONE; -DIPHENHYDRAMINE HCL 50 MG/ML VIAL IV PRN; -FAMOTIDINE INJ/PF 20 MG/2 ML SDV IV ONE; -FENTANYL CITRATE INJ/PF 100 MCG/2 ML AMPUL IV PRN; -FENTANYL CITRATE INJ/PF 100 MCG/2 ML AMPUL ONE; +IBUPROFEN 800 MG in NORMAL SALINE 250 ML IV PRN; -KETOROLAC TROMETHAMINE 60 MG/2 ML SDV ONE; +LACTATED RINGERS 1000 ML IV PRN; +LIDOCAINE 0.5% INJ-PF (5 MG/ML) 50 ML SDV SUBCUT PRN; -MEPERIDINE HCL/PF INJ 25 MG/1 ML DISP.SYRIN IV PRN; -METOCLOPRAMIDE HCL INJ/PF 10 MG/2 ML SDV ONE; -MIDAZOLAM 2 MG/2 ML INJ ONE; -MORPHINE SULFATE 10 MG/ML INJ IV PRN; -ONDANSETRON HCL INJ/PF 4 MG/2 ML SDV IV PRN; -ONDANSETRON HCL INJ/PF 4 MG/2 ML SDV ONE; +OXYCODONE HCL SR 10 MG TABLET PO PRN; -OXYCODONE-ACETAMINOPHEN 5-325 MG TABLET PO PRN; +PANTOPRAZOLE SODIUM 20 MG TABLET.DR PO PRN; -PROMETHAZINE HCL INJ 25 MG/1 ML VIAL IV PRN; -PROPOFOL INJ 200 MG/20 ML VIAL IV ONE; -RINGERS SOLUTION,LACTATED 1,000 ML IV PRN; -ROCURONIUM BROMIDE INJ 50 MG/5 ML VIAL IV ONE; -SUCCINYLCHOLINE CHLORIDE INJ 200 MG/10 ML VIAL ONE; +VANCOMYCIN HCL 1,000 MG in DEXTROSE 5%-WATER 250 ML IV PRN
[2020-03-13] MEDS ORDERED: PANTOPRAZOLE SODIUM 20 MG TABLET.DR PO ONE (08:26)
[2020-03-13] MEDS ORDERED: OXYCODONE HCL SR 10 MG TABLET PO ONE (08:26)
[2020-03-13] MEDS ORDERED: CEFAZOLIN INJ 1 GM VIAL ONE (08:26)
[2020-03-13 09:36] LABS: POTASSIUM 4.1 mmol/L (3.6-5.0)
[2020-03-13] MEDS ORDERED: SCOPOLAMINE HYDROBROMIDE 1.5 MG PATCH.TD72 ONE (10:11)
[2020-03-13] MEDS ORDERED: SCOPOLAMINE HYDROBROMIDE 1.5 MG PATCH.TD72 TD ONE (10:15)
[2020-03-13] MEDS ORDERED: MIDAZOLAM 2 MG/2 ML INJ ONE (10:58)
[2020-03-13] MEDS ORDERED: TRANEXAMIC ACID INJ/PF 1,000 MG/10 ML SDV ONE (10:58)
[2020-03-13] MEDS ORDERED: PROPOFOL INJ 200 MG/20 ML VIAL IV ONE (11:00)
[2020-03-13] MEDS ORDERED: MEPERIDINE HCL/PF INJ 25 MG/1 ML DISP.SYRIN IV PRN (11:49)
[2020-03-13] MEDS ORDERED: DIPHENHYDRAMINE HCL 50 MG/ML VIAL IV PRN ×2 (11:49→15:00)
[2020-03-13] MEDS ORDERED: PROMETHAZINE HCL INJ 25 MG/1 ML VIAL IV PRN ×2 (11:49)
--- NOTE | 2020-03-13 12:15 | Operative Report ---
Operative Report DATE OF SURGERY: 03/13/20 PREOPERATIVE DIAGNOSIS: Left knee arthritis OPERATION: Left knee arthroplasty SURGEON: DEEPTI REYES ANESTHESIA: Spinal TISSUE REMOVED OR ALTERED: Bone to pathology ESTIMATED BLOOD LOSS: 75 PROCEDURE: Implants used: Femur: Miguel triathlon size 4 CR uncemented femur Tibia: 4 uncemented tibia Tibial liner: 9 mm CS insert Patella: 3 5 mm oval uncemented patella Procedure with the patient supine on the operating table the left the limb is prepped and draped in a sterile fashion. The limb was elevated for exsanguination and the tourniquet inflated to 280 torr. A standard midline median parapatellar approach the knee is taken. Access is gained to the femoral canal through the intercondylar notch. Intramedullary alignment instrumentation used to resect 10 mm of distal femur in 5 of valgus. Sizing guide indicated a size 4 femur. Appropriate cutting jig is then used to fashion anterior posterior and chamfer cuts. A trial reduction femurs performed and this is judged to be adequate. Attention was next turned to the tibia. Using an extra medullary alignment system 9 millimeters was resected off the lateral tibial plateau. This is sized to a size 4 tibia. A trial reduction was now performed with a 4 femur and a 4 tibia using a 9 millimeters spacer. It is full extension and central patellofemoral tracking. The articular surface the patella was next resected using an oscillating saw. All trial implants were removed. The above implants are impacted into position. The tourniquet was deflated hemostasis obtained the wound is then closed in layers using interrupted Vicryl followed by luis eduardo. A sterile compressive dressing was applied and the patient returned to recovery room in satisfactory condition.
[2020-03-13] MEDS ORDERED: ROPIVACAINE HCL 0.5% INJ/PF (5 MG/1 ML) 30 ML SDV ONE (13:15)
[2020-03-13] MEDS ORDERED: ROPIVACAINE HCL 0.2% INJ/PF (2 MG/ML) 20 ML SDV ONE (13:19)
[2020-03-13] MEDS ORDERED: HYDROMORPHONE HCL INJ/PF 2 MG/ML AMPULE ONE (14:18)
[2020-03-13] MEDS ORDERED: HYDROMORPHONE HCL INJ/PF 2 MG/ML AMPULE IV PRN (14:57)
[2020-03-13] MEDS ORDERED: TRANEXAMIC ACID INJ/PF 1,000 MG/10 ML SDV IV ONE ×2 (15:00→16:00)
[2020-03-13] MEDS ORDERED: ONDANSETRON 4 MG TAB.RAPDIS PO PRN (15:00)
[2020-03-13] MEDS ORDERED: MORPHINE SULFATE 10 MG/ML INJ IV PRN ×2 (15:00)
--- NOTE | 2020-03-13 15:18 | RADIOLOGY REPORT (SQ) ---
EXAM DESCRIPTION: KNEE LEFT 2 VIEWS IMAGES COMPLETED DATE/TIME: 03/13/2020 2:49 pm REASON FOR STUDY: POST OP PACU M17.12 UNILATERAL PRIMARY OSTEOARTHRITIS, LEFT KNEE COMPARISON: None. NUMBER OF VIEWS: Two view(s). TECHNIQUE: Digital radiographic images of the left knee post-procedure. LIMITATIONS: None. FINDINGS: BONES: No worrisome or unexpected findings post-procedure. DEVICE: Total knee arthroplasty. SOFT TISSUES: No worrisome findings. Expected postoperative soft tissue changes. IMPRESSION: SATISFACTORY POSTOPERATIVE LEFT KNEE. TECHNICAL DOCUMENTATION: JOB ID: [id number] 2010 [employer]- All Rights Reserved Reading location - IP/workstation name: [email or web address]
[2020-03-13] MEDS: OXYCODONE HCL IR 5 MG TABLET PO PRN (16:54)
[2020-03-13] MEDS: PREGABALIN 75 MG CAPSULE PO SCH (18:04)
[2020-03-13] MEDS: OXYCODONE HCL SR 10 MG TABLET PO SCH (21:04)
[2020-03-13] MEDS: IBUPROFEN 800 MG in NORMAL SALINE 250 ML IV SCH (21:06)
[2020-03-14] MEDS: OXYCODONE HCL IR 5 MG TABLET PO PRN ×2 (00:56→07:55)
[2020-03-14] MEDS: IBUPROFEN 800 MG in NORMAL SALINE 250 ML IV SCH ×2 (05:21→13:01)
[2020-03-14] MEDS: PREGABALIN 75 MG CAPSULE PO SCH (05:22)
--- NOTE | 2020-03-14 07:27 | PDOC DISCHARGE SUMMARY ---
Impression - Admit/DC Date/PCP Admission Date/Primary Care Provider: 03/13/20 08:16 ISABEL FLORES MD Discharge Date: 03/14/20 - Additional Information Resuscitation Status: Full Code Discharge Diet: Regular Discharge Activity: Balance Activity w/Rest Referrals: DEEPTI REYES MD [ACTIVE STAFF] - 03/23/20 9:30 am Home Medications: Cholecalciferol (Vitamin D3) [Vitamin D3 5000 unit Capsule] 10,000 units PO DAILY 01/09/17 Hydrochlorothiazide [Hydrodiuril 12.5 mg Tablet] 12.5 mg PO QAM 03/15/19 Duloxetine HCl 60 mg PO DAILY 03/08/20 Irbesartan 150 mg PO DAILY 03/08/20 Meloxicam [Mobic 7.5 Mg Tablet] 7.5 mg PO BIDP PRN 03/08/20 Metformin HCl 500 mg PO DAILY 03/08/20 Pioglitazone HCl [Actos] 30 mg PO DAILY 03/08/20 Ipratropium [place] [Atrovent 0.06% Nasal [place]] 2 spray NASL DAILY 03/13/20 History of Present Illiness History of Present Illness: BONNY ASKEW is a 64 year old female 64-year-old white female with progressive left knee pain and functional disability second osteoarthritis. Patient is admitted for elective left knee arthroplasty. Hospital Course Hospital Course: Patient is admitted through the operating where she undergoes uncomplicated left knee arthroplasty. She was returned to the floor in satisfactory patient. Pain control issues are notable. Patient makes modest progress with physical therapy on the day of surgery. Physical Exam Vital Signs: Temp Pulse Resp BP Pulse Ox 37.2 C 88 16 157/68 H 96 03/13/20 23:12 03/13/20 23:12 03/13/20 23:12 03/13/20 23:12 03/13/20 23:12 Intake & Output 03/13/20 03/14/20 03/15/20 06:59 06:59 06:59 Intake Total 4949 Output Total 25 Balance 4924 Weight 118 kg General appearance: PRESENT: no acute distress, mild distress, obese Head exam: PRESENT: normocephalic Respiratory exam: PRESENT: unlabored Cardiovascular exam: PRESENT: RRR Vascular exam: PRESENT: normal capillary refill Musculoskeletal exam: PRESENT: other - Left knee compressive dressings removed on the first postoperative morning. Underlying OpSite dressing is clean dry and intact. Still neurovascular examination is intact. Results Laboratory Results: Potassium 4.1 mmol/L (3.6-5.0) 03/13/20 08:58 Glucose 104 mg/dL (75-110) 03/13/20 08:58 POC Glucose 98 mg/dL (70-110) 03/13/20 09:00 COVID-19 Source NASOPHARYNGEAL 03/08/20 10:30 COVID-19 (CAITLYN) Not Detected (Not Detect) 03/08/20 10:30 Impressions: Knee X-Ray 03/13/20 00:00 IMPRESSION: SATISFACTORY POSTOPERATIVE LEFT KNEE. Stroke Is this a Stroke Patient?: No Stroke Pt being discharged on Anti-thrombolytic therapy?: Yes Acute Heart Failure Is this a Heart Failure Patient?: No
[2020-03-14] MEDS ORDERED: HYDROCHLOROTHIAZIDE 12.5 MG TABLET PO SCH (08:00)
[2020-03-14] MEDS ORDERED: PANTOPRAZOLE SODIUM 40 MG TABLET.DR PO SCH (10:00)
[2020-03-14] MEDS: OXYCODONE HCL SR 10 MG TABLET PO SCH (10:06)
[2020-03-14 12:41] VITALS: BP 149/48
== END 2020-03-14 14:17 | disposition home health service (06) ==
LOC: INOR 08:16 → INTOOBSV 08:16 → 4W 14:50
PROVIDERS: ADMIT Orthopaedic Surgery; ATTEND Orthopaedic Surgery
DX: M17.12 Unilateral primary osteoarthritis, left knee (principal); E66.01 Morbid (severe) obesity due to excess calories; E11.9 Type 2 diabetes mellitus without complications; I10 Essential (primary) hypertension; Z79.899 Other long term (current) drug therapy; Z03.818 Encounter for observation for suspected exposure to other biological agents ruled out; M06.9 Rheumatoid arthritis, unspecified; F41.9 Anxiety disorder, unspecified; Z79.84 Long term (current) use of oral hypoglycemic drugs; Z87.891 Personal history of nicotine dependence
CPT/HCPCS: 36415; 82962; 82947; 84132; 87635; 88305 ×2; 88311; 73560; 97530 ×3; 97110; 97116; 97163; 97535 ×2; 97166; 27447; G0378 ×2; C1776 ×4; J2250; J0690; S0119; J2270; J1170; J3490 ×5; J7060; J7050 ×2; J2704; J3370; J1741 ×2; J2795; C9803; 01402; 64447; 76942